=== PATIENT | male | born 1945 | race Caucasian/White ===

== ENCOUNTER 2022-12-19 09:32 | Outpatient (OUT) | payer MEDICARE, SELFPAY ==
--- NOTE | 2022-12-19 | XR_ITS ---
The [address] [address] Patient Name: ANNA DHILLON MRN: [id number] date: 1945 Sex: M Assigned Patient Location: [facility] Current Patient Location: [facility] Accession/Order Number: [id number] Exam Date: 12/19/2022 09:45 Report Date: 12/19/2022 10:24 At the request of: EVERTON FAN Procedure: XR foot CARISA min 3V EXAMINATION: XR foot CARISA min 3V HISTORY: BILATERAL FOOT PAIN COMPARISON: No relevant comparison available. FINDINGS: RIGHT FINDINGS: BONES: Loss of plantar arch, degenerative changes of the first tarsal metatarsal joint, and abnormal widening of the interspace between the base of the first and second metatarsals suggestive of Lisfranc injury. Prominent medial deviation/angulation of the second toe. SOFT TISSUES: No visible soft tissue swelling. OTHER: Negative. LEFT FINDINGS: BONES: Flexion and mild medial deviation of the second and third toes. SOFT TISSUES: No visible soft tissue swelling. OTHER: Negative. IMPRESSION: RIGHT CONCLUSION: Degenerative changes and Lisfranc injury. LEFT CONCLUSION: No acute abnormality or significant degenerative changes. Electronically authenticated by: HATTIE SCHAEFER Date: 12/19/2022 10:24
== END 2022-12-19 09:33 | disposition home or self-care (01) ==
LOC: RAD 09:32
PROVIDERS: Visit Provider Physician Assistant
DX: M79.672 Pain in left foot (principal); M79.671 Pain in right foot; M19.071 Primary osteoarthritis, right ankle and foot; S93.621A Sprain of tarsometatarsal ligament of right foot, initial encounter; X58.XXXA Exposure to other specified factors, initial encounter
CPT/HCPCS: 73630

== ENCOUNTER 2023-01-06 07:59 | Outpatient (OUT) | payer MEDICARE, SELFPAY ==
[2023-01-06 08:17] LABS: Basophils Percent Auto 0.4 % (0.2-2.0); Eosinophils Absolute Auto 0.2 10^3/uL (0.0-0.7); Eosinophils Percent Auto 4.4 % (0.9-7.0); Hematocrit 43.7 % (42.0-54.0); Immature Granulocytes Abs Auto 0.02 10^3/uL (0.00-0.03); Immature Granulocytes Pct Auto 0.4 % (0.0-0.5); Lymphocytes Absolute Auto 2.1 10^3/uL (1.2-3.8); Lymphocytes Percent Auto 38.9 % (20.5-60.0); Mean Corpuscular HGB Conc 34.3 g/dL (29.9-35.2); Mean Corpuscular Hemoglobin 32.4 pg (25.9-34.0); Mean Corpuscular Volume 94.4 fL (80.0-94.0); Monocytes Absolute Auto 0.5 10^3/uL (0.3-0.8); Monocytes Percent Auto 9.4 % (1.7-12.0); Neutrophils Absolute Auto 2.5 10^3/uL (1.4-6.5); Neutrophils Percent Auto 46.5 % (43.0-75.0); Platelet Count 137 10^3/uL (150-450); Red Blood Count 4.63 10^6/uL (4.70-6.10); Red Cell Distribution Width 12.5 % (11.0-15.0); White Blood Count 5.5 10^3/uL (4.0-11.0)
[2023-01-06 08:30] LABS: Microalbumin Urine Random <1.3 mg/dL (<=30.0)
[2023-01-06 09:34] LABS: BUN Creatinine Ratio 11.8; Calcium 9.1 mg/dL (8.5-10.1); Carbon Dioxide 25.8 mmol/L (21.0-32.0); Chloride 103 mmol/L (98-107); Estimated GFR (African America >60 (>=60); Estimated GFR (Non-African Ame >60 (>=60); Glucose 99 mg/dL (74-106); Potassium 3.8 mmol/L (3.5-5.1); Sodium 139 mmol/L (136-145)
== END 2023-01-06 08:00 | disposition home or self-care (01) ==
LOC: LAB 08:01
PROVIDERS: PCP Family Medicine; Visit Provider Family Medicine
DX: I10 Essential (primary) hypertension (principal)
CPT/HCPCS: 36415; 80048; 82043; 85025

== ENCOUNTER 2023-12-29 08:10 | Outpatient (OUT) | payer MEDICARE, SELFPAY ==
--- NOTE | 2023-12-29 | XR_ITS ---
The [address] [address] Patient Name: ANNA DHILLON MRN: [id number] date: 1945 Sex: M Assigned Patient Location: Current Patient Location: Accession/Order Number: [id number] Exam Date: 12/29/2023 08:45 Report Date: 01/02/2024 04:57 At the request of: HATTIE OBREGON Procedure: XR knee RT 4V PROCEDURE: XR knee RT 4V HISTORY: RIGHT KNEE PAIN COMPARISON: None. FINDINGS: BONES:Moderate-marked narrowing of the lateral joint space. Periarticular osteophytes along lateral and anterior compartments. SOFT TISSUES:Degenerative enthesophytes within quadriceps tendon insertion into the patella. EFFUSION:Small joint effusion suspected. OTHER: Negative. XR/XR knee RT 4V IMPRESSION: 1. Moderate-marked degenerative joint disease and small joint effusion. 2. No appreciable acute bone abnormality. Electronically authenticated by: HATTIE SCHAEFER Date: 01/02/2024 04:57
== END 2023-12-29 08:11 | disposition home or self-care (01) ==
LOC: EC 08:10
PROVIDERS: PCP Family Medicine; Visit Provider Orthopaedic Surgery
DX: M25.561 Pain in right knee (principal); M25.461 Effusion, right knee; M17.11 Unilateral primary osteoarthritis, right knee
CPT/HCPCS: 73564

== ENCOUNTER 2024-01-13 07:39 | Outpatient (OUT) | payer MEDICARE, SELFPAY ==
--- OUTSIDE RECORDS SUMMARY | 2024-01-13 07:44 | XMS_ITS | CCD ---
Author Organization [facility] Care Team Providers Care Tax Examiner Name Role Phone DR BEE CUTLER Primary Care Unavailable PHILLY, DR BEE Zuniga Consulting Unavailable CUTLER, DR BEE Zuniga Attending Unavailable CUTLER, DR BEE Zuniga Admitting Unavailable CLARISSA NOVAK Consulting Unavailable PHILLY, DR BEE Zuniga Admitting Unavailable CUTLER, DR BEE Zuniga Primary Care Unavailable CUTLER, DR BEE Zuniga Consulting Unavailable PHILLY, DR BEE Zuniga Attending Unavailable CUTLER, DR BEE Zuniga Primary Care Unavailable TATO RUSHING Attending Unavailable TATO RUSHING Admitting Unavailable BARKHAMSTED, DR CLARISSA Andrade Consulting Unavailable TATO RUSHING Consulting Unavailable PHILLY, DR BEE Zuniga Primary Care Unavailable PHILLY, DR BEE Zuniga Attending Unavailable CUTLER, DR BEE Zuniga Admitting Unavailable Bee Cutler Unavailable Medications Current Medications Medication Drug Class(es) Dates Sig (Normalized) Sig (Original) azithromycin 250 mg oral tablet (1 source) Macrolide Antimicrobial Start: 07-03-2022 Azithromycin 250 MG as directed Orally 2 tabs po today, then 1 tab daily x 4 more days for 5 Jun, Active fluticasone (5 sources) Corticosteroid Start: 01-08-2024 take 2 puff(s) by inhalation twice daily Fluticasone Propionate Active 2 PUFF INHALATION Twice daily January 08, 2024 12:00am [employer] puffs Inhalation Twice a day; Note: Source Status: Refill; Provider: Philly Zuniga take 2 puff(s) by inhalation twi ce daily Flovent HFA 110 MCG/ACT 2 puffs Inhalation Twice a day Active methylPREDNISolone 4 mg oral tablet (1 source) Corticosteroid Start: 07-03-2022 methylPREDNISolone 4 MG as directed Orally for 6 days Jun, Active metoprolol tartrate 50 mg oral tablet (7 sources) beta-Adrenergic Ana Start: 09-11-2023 End: 09-11-2023 take 50 mg by mouth twice daily Metoprolol Tartrate Active 50 MG PO Twice daily 180 September 11, 2023 1:10pm Start: 09-19-2022 take 1 tablet by herber every twelve hours Metoprolol Tartrate 50 MG 1 tablet with food Orally Twice a day for 90 days Sep, Active take 1 capsule by mo uth once daily Metoprolol Succinate 50 MG 1 capsule Orally Once a day Active naproxen sodium 220 mg oral capsule (5 sources) Nonsteroidal Anti-inflammatory Drug Start: 01-08-2024 take 1 capsule by mouth every twelve hours at mealtime as needed Naproxen Sodium (Aleve) 220 mg capsule Active 220 MG PO Every 12 hours January 08, 2024 12:00am [employer] capsule with food or milk as needed Orally every 12 hrs as needed; Note: Source Status: Taking; Provider: Philly Gamboa ( ) take 1 capsule by mo ut every twelve hours at mealtime as needed Aleve 220 MG 1 capsule with food or milk as needed Orally every 12 hrs as needed Active Completed/Discontinued Medications Medication Drug Class(es) Dates Sig (Normalized) Sig (Original) Multivitamins (1 source) Multivitamins Not-Taking Suprep Bowel Prep Kit 17.5-3.13-1.6 GM/180ML (1 source) Start: 07-20-2018 take 177 mL by mouth twice daily Suprep Bowel Prep Kit 17.5-3.13-1.6 GM/180ML 177ml bottle at 4pm and 11pm Orally Twice a day for 1 day(s) If this prescription is not covered by this patients insurance, he has been given an alternate prep to buy OTC Jul, Not-Taking Problems Active Problems Problem Classification Problem Date Documented Da te Episodic/Chronic Acquired foot deformities (4 sources) Hammer toe; Translations: [Other hammer toe(s) (acquired), right foot] Chronic Chronic obstructive pulmonary disease and bronchiectasis (5 sources) Acute exacerbation of chronic obstructive airways disease; Translations: [Chronic obstructive pulmonary disease with (acute) exacerbation] Chronic Essential hypertension (17 sources) Essential (primary) hypertension; Translations: [Essential hypertension] Onset: 06-21-2021 Chronic Other connective tissue disease (1 source) Plantar fascial fibromatosis Episodic Other connective tissue disease (1 source) Pain in left foot Episodic Other gastrointestinal disorders (4 sources) Hemorrhagic diarrhea ; Translations: [Diarrhea, unspecified] Episodic Other lower respiratory disease (10 sources) Chronic cough; Translations: [Chronic cough] Onset: 01-04-2022 Episodic Other nutritional; endocrine; and metabolic disorders (4 sources) Abnormal weight loss; Translations: [Abnormal weight loss] Episodic Past or Other Problems Problem Classification Problem Date Documented Da te Episodic/Chronic Other connective tissue disease (4 sources) Pain in right foot; Translations: [PAIN IN RIGHT FOOT] Onset: 05-24-2021 Episodic Other screening for suspected conditions (not mental disorders or infectious disease) (1 source) Encounter for screening for malignant neoplasm of prostate; Translations: [ENC SCREEN MALIG NEOPLASM PROSTATE] Onset: 06-28-2021 Episodic Results Test Name Value Interpretation Reference Range Facil ity XR CHEST 2 Von 01-04-2022 XR CHEST 2 V EXAM: XR CHEST 2 V HISTORY: . Chronic cough . COMPARISON: 03/15/2020 TECHNIQUE: Frontal and lateral chest FINDINGS: Heart is normal in size. There is hyperexpansion of lungs and flattening in hemidiaphragms indicating COPD. Lungs are free of focal infiltrates. There is a small calcified granuloma in the right midlung field. Atherosclerotic changes of the thoracic aorta are noted. No acute bony abnormality is appreciated. IMPRESSION: 1. Changes consistent with COPD. 2. No acute heart or lung disease identified. Electronically authenticated by: CLARISSA NOVAK Date: 2022-01-04 08:32 Normal [facility] Coding Summary.on 08-02-2021 Coding Summary. [id number] G h0bWw+PGhlYWQ+SN5STAP zY62ieKLhyE9LS6yYZB6R STXSGDCLVW0IEN8foXE3X JtmA9YdsaQu MxtyqPAqBW97FTm0HXE9p EziPNyydM3fpGGkO1t4Fc GyZA38fL11ZKktRKLcOpJ 3LjZpbjsgbWFy Y6xfUjFyvBUgQzn+PHRhY mxlIHdpZHRoPScxMDAlJy WlcSucLY3dAl0lZZQqTFU vbGxhcHNlOiBj n9mrUZQlEZetCX1ezKwxY 9TbcAL0BNCzc6h2Eo93oA I+FNBzGXE0rGbnAYkbi84 7EaGiu3qzUVQ3 gNFcKKyqGIW1U97bl5M5B GJyIMCcVPZ5oQJ8bV7ztS beiqnwG7XcnQWoMjH8TEK 8fQAhnE7shOch ysdteR6vEfj+M49MHK8EV DMKBI4LJyl4E2HzFgnyoW I+PX26ICZyDZ20qQAhpRF dv4zrwNf1YkRf IKBtXUO6zNwlKRnnu7PdE ZZcC79pwJXum7Y1LMIblA ltiRTkPdIzeLK6nS0gTNw xjsatj5yeoeir Tkbsy2mrdu76zS30B23uR YaoKZQjHWZ9BZLkHBBeyW ijdh0vaZ4eRi2+RMsja8x oj3xzjZr5UcNb MSAtiqNhoKsgIHQ9v2VbY e83U3QsjYqdk6CeAej4nl 13bJWjm4D9eJE8CShaVRZ xjC1vWLueQyW2 QPZpZsPmwG31gSGlGHyqL x5plXtbcIedFY2pGGIimb stVGWnfF4lAJWqsWWozGa wQH1bVWMauwdp q215ZlGpLFM8VGPmrSOrJ 9VzyS7kGzTkWEQlIKDdN6 DqcFZjEJroL766MYgvYpX 7CSEjzdWdK8Uc PYRlmOolSaH2g3W4Uw3Rg 8XlphdmUCV1ALsaAQHhAd Z1XoLqWjM4V5QrUfz7SRJ rnPprXZ8oD9Xs TKYgqztbmxxnlXG5ZUMoI AUxgO33tOYkVWvjIs0vz1 A3y125ODKjFBFogE12Fn5 udDogMTBwdCBU oH2psezpg7jhydwwKpEjQ IQnNVe5AKu6LTJwtKuhUl ExCQZ9JgQ8OHW7lYUprP5 kdTvxbrvbqF3n Oyc+W17rkR8yRHC8TBN8l dbfVVJzwwRnYA63QG77Q8 RyPjwvdGFibGU+PGRpdiB aePzgFU5fPzHy l3zfq0ZpNNjcC1DhORCuG SchSbe5LAPaZCU7tUP7jB 8wFEAfYSgcq8M0zXF9P8W hxdUkys7vq6mx TPIhVHljK82thODyq8C1Z IYlsAL0UIJoeNosPzPsrW 93Oyc+RTSxeArwn3IsQhw tc0vma8wznTn9 SoKzKYZzgvTkmSukEGN9j 0WqQj69P10bQJpsTAFeUF HsACNnNERjrWlfwq2drP6 wIi8+PGNvbCB3 vER0qB5kYMSqAlT9WRksW 225AlYfsZQuLdlxj2ude5 avzVk8PjVhQNUmvnSmgQe wQPX5z5CfWy82 Y09mXCaiTEMsOJCaTVJjK XYbwZpuep2meL7zWw9+PC 0cj1hkrq39lM97mJH+PHR hAWA5nSdrGDxb UUObyE6yEMuxXtK2PLFcQ eZpwN00cDUuCGrwHs4tbI kbqSjnKI7vRLArzjpcn21 7OaHoy3raOQOw nQCcELibRTK4Q47ae6M8G LPqPYQoDJI4zCF6sW1dxG lnbjogbGVmdDsgdmVydGl wKLrbRCueK109 IHRvcDsnPlBhdGllbnQgT gDmBWx8R5SmLnn7OPGkwP luTT0olUFvDPgiPa6jxIw mnIlhCS6iXXLr rptpb430IqIkn4lbWLUdw NGxGKcvJHE2P92ik5H6AE CxGRJxUOZ5rRE8fE4nuHy nbjogbGVmdDsg naAnoYiiKCscMDdwB032U HRvcDsnPkJpcnRoIERhdG T9SH34EW43eBUcm9G9uFD 5V4WkEXAvqpxr jlfngXM9QYYnPXTloZ79N t9qnLvdSj9ePYGgSXY9RH NtiSJmD9CkmH7hTzTjTKL iKSNqU6BudLHu RQwvQ023TZmtYtZ8FSLiq fYeW7TbPJAnuDeeInY2m0 S2Da0EE9F5YQ97HZ60oWO rk5F8kJI5U5Ex LEWebreromrxbMG9BDAjT TUasS22Se5gbEdlZm0nSU CdDKM3LCKsePNjE9EtqJ2 yOiAjMDAwMDAw R7PuzLLwVKvwY701CBgaF oH2TULyktEbK5WiQBMwiO dfScU4a9G2Nm2MUNk3QA0 3HF58iLTxi0E6 nDN8B4XkXOPjgcceyymrh DA8WQQiVNIvsA54Bi0vwP gyIj3fRACjGKL0EKCtoLI uU0YwqS5uZgRi PEGsELNwI1FhsRJkGMnyB 870IWlpXdE0BANkjmSuB6 PkDPGbfOgwJwY9o2S7Uk4 GGLUiSH62KOZ2 oMB3AF26OT77V2MbYomfb GFibGU+PHRhYmxlIHdpZH RoPScxMDAlJyBzdHlsZT0 cIa6nYRQzBEGu vOhtaGIcMeEwz5wmUICbE FvbUC5sbGhyX0LrpAS8DJ Wfz1n9Ju38K37zA9BevGP +XYAgnLA1wLJ1 fN0wTgChAgJ7CSehB143C dYpkTSdDqxmj4scw7lpnP p8UbT3YBTootRqvPvjYQA 2i4AoJm39P12t IHdpZHRoPSIxNSUiIHZhb Qvflb5ovN2bDa5+PGNvbC X0wEC2wM3hLjKaIgV8YCh yZ756FaAezKHx Jjcsg6ljy7iwzTp3WcOtR FCfanDgcFueMCV9r7CwUm 66Y8CnoGzdq9VzIpg0ag3 2qGPvf7M6qQW3 U2SoCVQdotgtiPPdfBluM G7cNRTyokllKPSzjA2zZZ GoE7u5AsMdCgN4DSttL2S yopX5QHHmvWIa DYagPKY2M16sc4H2OIKoQ KNxWJG8pHU2fJ8bwFeqod ogbGVmdDsgdmVydGljYWw cCAmhU273XGEc hMsxTZWcaJ6fNQVkzWQdm IjcBN2cALWnnkykMcHJJF gYEHxsXZbQA7PZGXEVVH8 1XO53wUKxh2A1 pKW2V1XnCDBpxqomxyvdp LU2FPCqKJMncG97gOSiAH cyQp2fj5F4n246LIQqTQZ thK09Ur2qaJcn STEpkOVRmF8jyrkbr0ixn legBkQuNAUnZRm8AKj2SH JgoIbtKkUxDFG8YnF1YHW 8pEQfrG6dqDuj crcjxI9yYwf+MTIvMjYvM Sf3IBcjcWA+HGJpZQI9iF pkPKylXZUstZ4rCKObY2b 4UgJiGcY8PSkl D2OjPUYtcxkwLd62wS7rI sVoUaY3QHydC8YbttW0XL LgiNCiRDewOXA0T80np6I 0NJXqTXFoCZN9 vKL8tT5jlFyiizyueHOfi DsgdmVydGljYWwtYWxpZ2 75YMMcrPoyUwm0SEipICB tAA86OV69uOEa s8F2jFP2H7MgOAFjiqcic budyBD6HFXsIRMdiH91cM TaFInrXg1mj4Z2h829ZTT fVMKsdQ60Pi6j rWbfNHHwfMGOmV2iunkpa 3ysbaccLtGnAZLgWGt6BF b6GXSppGfgHjQfWNZ3RzZ 6IWM5kYFgeR7y uFabelyvqZ5aJyx+TWFsZ TwvdGQ+WMAoASQ2lDnjMW qjABSemT2lFTYtQ1y0VfS vIzI3DXxcA8Cw THSywylyZw55gP8fTfMrW tZ1VNmzE4JpezT6RCPpdN HsZRwnXCX9N04gj8U6UDL aLLSgRVW8xNE8 fE5mkWnqxrulyLEveAeqk sRtoDqqSAqzRZfcJ300GW QxuVxwXwytZtUJmo5wMR9 mZjwvdGQ+PC90 nd58K7FsTkngRxk1DWYaV IV8wFD5iA7uLESqHLbju0 T5cPH6U3JghpQtdx6ce6h hYDVxRMyeX33v cEDgi0P4QKSxuWV3NVXaj TnyJpXseS73Hwe+PGNvbG huh4YjLmrzk3fcc2uktAz 9IjMwJSIgdmFs hCptMEW7q4QzYj75L29gY HdpZHRoPSIzMCUiIHZhbG ndil5vcX2vGv2+PGNvbCB 0dFX0hT4hTwLm IdI6YQtfB617KeVncTEcL izxu0zyw4tczQu1QyTgKY WapbHwfFupDNA8q3OpXl2 0E9JkxPeru6Fw Nsq7qt69jQDie0F3uOR6K 3BhZGRpbmctbGVmdDogMC 1sNQFwvwllWVIfdX5aRHJ xL5k0ItJmHzW6 RMvsN0HddgD1NAVdkZWaA VNmqYSQvO4gxgwnm9gwjq sjBjTdFYAsQEa3FCt2YRR saWduOiBsZWZ0 DaV4SUU4tXCmvL3rkZdqz dlloB4fWga+EEk9e2oxdF XrGN6rhNV1QB08KX37gYO yo6I4pBG3N2Ai EEEmoonmtgrjoDI4UCChE AObzH44Oy6pxFoiHo9xLL WlTJH7FYZmaIFuL2AjhP0 yOiAjMDAwMDAw L2EsbHApWJtzM722MCkyO cA0EKOoayWcR3SdLJAxdH tyFkQ9p5O5Gx6UPQ89SK3 1ZK41uDDho9B5 wAC7K7UeHUPqtkhgokiog TK8LBMxOXAlnF45Zx8gnY soAh7mDOCgXUH5CNNwyIJ cW7SzfE8bTkWe IUVmDGVlP5OjpJYkHXcuH 172CWqeNjS2KKHedeAjD8 VdCFJdiNmvHmZ7k1S5Tm5 RRy98OW10LJ13 kEQah8N8zFL5P7FjDTOfp wtioteqbVV4UDHrAMKywD 05Hb4ciAvpIk7nVJAiVRL 6MJJdhYLoA8Md sR9yUiJgGRJpRHVqY4Jqa JFhOQgwQ297SDidOmB9EK YlnqJtX1BoSFImrDlyBxG 4w5A7Ia0AZHjd zeu1S5ToSmxyiKY+PC90Y IWkHQ41wCBhvCBjc3shzX k4AlQbLETbYKW7fHcfPZr fm5WqNTTjK22b bGFw (more content not included)... Normal [facility] Physician Orderon 07-27-2021 Physician Order [id number] Normal [facility] PSA SCREENING [facility]on Prostate specific Ag [Mass/Vol] 2.4 ng/mL Normal 0.0-4.0 [facility] Comment on above: Result Comment: Sana NUÑEZ methodology. . According to the [employer], Serum PSA should decrease and remain at undetectable levels after radical prostatectomy. The AUA defines biochemical recurrence as an initial PSA value 0.2 ng/mL or greater followed by a subsequent confirmatory PSA value 0.2 ng/mL or greater. Values obtained with different assay methods or kits cannot be used interchangeably. Results cannot be interpreted as absolute evidence of the presence or absence of malignant disease. Performed By: #### P SASCLC #### [facility] [address] [place] [address] Dr. Jose Alves CBC AUTO DIFFon 06-21-2021 BASO # 0.0 103/ul Normal 0.0-0.1 [facility] Comment on above: Performed By: #### C BC #### [facility] [address] [place] [address] Dr. Jose Alves Basophils/100 WBC (Bld) 0.4 % Normal 0.2-2.0 [facility] Comment on above: Performed By: #### C BC #### [facility] [address] [place] [address] Dr. Jose Alves EO # 0.1 103/ul Normal 0.0-0.7 [facility] Comment on above: Performed By: #### C BC #### [facility] [address] [address] [address] Jose Alves Eosinophils/100 WBC (Bld) 2.6 % Normal 0.9-7.0 [facility] Comment on above: Performed By: #### C BC #### [facility] [address] [place] [address] Dr. Jose Alves Erythrocyte distribution width (RBC) [Ratio] 12.6 % Normal 11.0-15.0 [facility] Comment on above: Performed By: #### C BC #### [facility] [address] [place] [address] Dr. Jose Alves Hematocrit (Bld) [Volume fraction] 44.2 % Normal 42.0-54.0 [facility] Comment on above: Performed By: #### C BC #### [facility] [address] [place] [address] Dr. Jose Alves Hemoglobin (Bld) [Mass/Vol] 15.1 g/dL Normal 14.0-18.[address] [facility] Comment on above: Performed By: #### C BC #### [facility] [address] [place] [address] Dr. Jose Alves IG # 0.01 10e3/ul Normal 0.00-0.[address] [facility] Comment on above: Performed By: #### C BC #### [facility] [address] [place] [address] Dr. Jose Alves IG % 0.2 % Normal 0.0-0.[address] [facility] Comment on above: Performed By: #### C BC #### [facility] [address] [place] [address] Dr. Jose Alves LYMPH # 2.2 103/ul Normal 1.2-3.8 [facility] Comment on above: Performed By: #### C BC #### [facility] [address] [place] [address] Dr. Jose Alves Lymphocytes/100 WBC (Bld) 40.2 % Normal 20.5-60.[address] [facility] Comment on above: Performed By: #### C BC #### [facility] [address] [place] [address] Dr. Jose Alves MANUAL DIFF REQ NO Normal [facility] Comment on above: Performed By: #### C BC #### [facility] [address] [place] [address] Dr. Jose Alves MCH (RBC) [Entitic mass] 33.5 pg Normal 25.9-34.0 [facility] Comment on above: Performed By: #### C BC #### [facility] [address] [place] [address] Dr. Jose Alves MCHC (RBC) [Mass/Vol] 34.2 g/dL Normal 29.9-35.2 [facility] Comment on above: Performed By: #### C BC #### [facility] [address] [place] [address] Dr. Jose Alves MCV (RBC) [Entitic vol] 98.0 fL Critically high 80.0-94.[address] [facility] Comment on above: Performed By: #### C BC #### [facility] [address] [place] [address] Dr. Jose Alves MONO # 0.5 103/ul Normal 0.3-0.[address] [facility] Comment on above: Performed By: #### C BC #### [facility] [address] [place] [address] Dr. Jose Alves Monocytes/100 WBC (Bld) 8.9 % Normal 1.7-12.[address] [facility] Comment on above: Performed By: #### C BC #### [facility] [address] [place] [address] Dr. Jose Alves NEUT # 2.6 103/ul Normal 1.4-6.[address] [facility] Comment on above: Performed By: #### C BC #### [facility] [address] [place] [address] Dr. Jose Alves Neutrophils/100 WBC (Bld) 47.7 % Normal 43.0-75.[address] [facility] Comment on above: Performed By: #### C BC #### [facility] [address] [place] [address] Dr. Jose Alves Platelet mean volume (Bld) [Entitic vol] 9.9 fL Normal 9.5-13.5 [facility] Comment on above: Performed By: #### C BC #### [facility] [address] [place] [address] Dr. Jose Alves PLT 201 103/ul Normal 150-450 [facility] Comment on above: Performed By: #### C BC #### [facility] [address] [place] [address] Dr. Jose Alves RBC 4.51 106/ul Critically low 4.70-6.10 [facility] Comment on above: Performed By: #### C BC #### [facility] [address] [place] [address] Dr. Jose Alves WBC 5.4 103/ul Normal 4.0-11.[address] [facility] Comment on above: Performed By: #### C BC #### [facility] [address] [place] [address] Dr. Jose Alves MICROALBUMIN, RAND URon mALB 2.1 mg/L Normal <=30.[address] [facility] Comment on above: Performed By: #### M ALBR #### [facility] [address] [place] [address] Dr. Jose Alves PROF CHEM 8 (BAS METB)on Anion gap [Moles/Vol] 12.5 mmol/L Normal [facility] Comment on above: Performed By: #### B MP #### [facility] [address] [place] [address] Dr. Jose Alves Calcium [Mass/Vol] 8.9 mg/dL Normal 8.4-10.2 [facility] Comment on above: Performed By: #### B MP #### [facility] [address] [place] [address] Dr. Jose Alves Chloride [Moles/Vol] 105 mmol/L Normal 98-107 [facility] Comment on above: Performed By: #### B MP #### [facility] [address] [place] [address] Dr. Jose Alves CO2 [Moles/Vol] 29.1 mmol/L Normal 22.0-30.0 [facility] Comment on above: Performed By: #### B MP #### [facility] [address] [place] [address] Dr. Jose Alves Creatinine [Mass/Vol] 1.13 mg/dL Normal 0.66-1.25 [facility] Comment on above: Performed By: #### B MP #### [facility] [address] [place] [address] Dr. Jose Alevs EGFR-AF [place]IZ[place] >60 Normal >=60 [facility] Comment on above: Performed By: #### B MP #### [facility] [address] [place] [address] Dr. Jose Alves EGFR-NON AF [place]IZ[place] >60 Normal >=[address] [facility] Comment on above: Performed By: #### B MP #### [facility] [address] [address] [address] Jose Alves Glucose [Mass/Vol] 100 mg/dL Normal 74-106 [facility] Comment on above: Performed By: #### B MP #### [facility] [address] [address] [address] Jose Alves Potassium [Moles/Vol] 4.6 mmol/L Normal 3.4-5.[address] [facility] Comment on above: Performed By: #### B MP #### [facility] [address] [address] [address] Jose Alves Sodium [Moles/Vol] 142 mmol/L Normal 137-145 [facility] Comment on above: Performed By: #### B MP #### [facility] [address] [address] [address] Jose Alves Urea nitrogen [Mass/Vol] 22.0 mg/dL Critically high 9.0-20.[address] [facility] Comment on above: Performed By: #### B MP #### [facility] [address] [address] [address] Jose Alves Urea nitrogen/Creatinine [Mass ratio] 19.5 mg/mg Normal [facility] Comment on above: Performed By: #### B MP #### [facility] [address] [address] [address] Jose Alves Vital Signs Date Time Vital Sign Value Performing Clinician Facility 01-12-2024 08: Body height 171.45 cm [facility] 01-12-2024 08: Body mass index (BMI) [Ratio] 23.7 kg/m2 [facility] 01-12-2024 08: Body weight 69.85 kg [facility] 01-12-2024 08: Diastolic blood pressure 76 mm[Hg] [facility] 01-12-2024 08: Heart rate 55 /min [facility] 01-12-2024 08:27-0400 Systolic blood pressure 179 mm[Hg] [facility] 07-07-2023 08:30-0500 Body height 171.45 cm Bee Cutler Other [employer] Other 07-07-2023 08:30-0500 Body mass index (BMI) [Ratio] 24.84 kg/m2 Bee Cutler Other [employer] Other 07-07-2023 08:30-0500 Body weight 73.03 kg Bee Cutler Other [employer] Other 07-07-2023 08:30-0500 Diastolic blood pressure 80 mm[Hg] Bee Cutler Other [employer] Other 07-07-2023 08:30-0500 Systolic blood pressure 160 mm[Hg] Bee Cutler Other [employer] Other 01-02-2023 08:30-0400 Body height 171.45 cm Bee Cutler Other [employer] Other 01-02-2023 08:30-0400 Body mass index (BMI) [Ratio] 24.38 kg/m2 Bee Cutler Other [employer] Other 01-02-2023 08:30-0400 Body weight 71.67 kg Bee Cutler Other [employer] Other 01-02-2023 08:30-0400 Diastolic blood pressure 74 mm[Hg] Bee Cutler Other [employer] Other 01-02-2023 08:30-0400 Systolic blood pressure 142 mm[Hg] Bee Cutler Other [employer] Other 12-05-2022 09:15-0400 Body height 171.45 cm Bee Cutler Other [employer] Other 12-05-2022 09:15-0400 Body mass index (BMI) [Ratio] 24.07 kg/m2 Bee Cutler Other [employer] Other 12-05-2022 09:15-0400 Body weight 70.76 kg Bee Cutler Other [employer] Other 12-05-2022 09:15-0400 Diastolic blood pressure 78 mm[Hg] Bee Cutler Other [employer] Other 12-05-2022 09:15-0400 Systolic blood pressure 159 mm[Hg] Bee Cutler Other [employer] Other Encounters Encounter Date Encounter Type Care Provider Facility Start: 01-12-2024 End: 01-12-2024 ambulatory [facility] Work Phone: Start: 01-12-2024 End: 01-12-2024 Patient encounter procedure [facility]ly [facility] Work Phone: Start: 07-07-2023 End: 07-07-2023 ambulatory Bee Cutler Other [employer] Other Start: 07-07-2023 Office outpatient vi sit 15 minutes Bee Cutler [facility] Start: 01-02-2023 End: 01-02-2023 ambulatory Bee Cutler Other [employer] Other Start: 01-02-2023 Office outpatient vi sit 15 minutes Bee Cutler [facility] Start: 12-05-2022 End: 12-05-2022 ambulatory Bee Cutler Other [employer] Other Start: 12-05-2022 Office outpatient vi sit 15 minutes Bee Cutler [facility] Start: 09-19-2022 End: 09-19-2022 ambulatory Bee Cutler Other [facility] Other Start: 09-19-2022 Telephone encounter Bee Cutler [facility] Start: 01-19-[address] BEE CUTLER Facil ity:H1 Start: 01-04-2022 End: 01-05-[address] BEE CUTLER Facility:[facility] Start: 06-21-2021 End: 06-22-[address] BEE CUTLER Facility:[facility] Start: 05-24-2021 End: 05-25-[address] BEE CUTLER Facility:[facility]1 Plan of Treatment Date Care Activity Detail Author Comprehensive metabo lic 1999 panel - Serum or Plasma [facility] enter XR Chest 2 Views [facility] Immunizations Immunization Date Immunization Notes Care Provider Fa cility 03-23-2021 influenza virus vaccine, split virus (incl. purified surface antigen) Bee Cutler Other [employer] [facility] Other 03-23-2021 influenza virus vaccine, unspecified formulation [facility] 03-24-2020 influenza virus vaccine, split virus (incl. purified surface antigen) Bee Cutler Other [facility] Other 03-24-2020 influenza virus vaccine, unspecified formulation [facility] Payers Date Payer Category Payer Self-pay 1960 Unknown [id number] 1945 Unknown [id number] 1945 Unknown [id number] [id number] [id number] 1945 Unknown [id number] [id number] [id number] 1945 Unknown [id number] [id number] [id number] Medicare [id number] 2.1 [id number] Social History Date Type Detail Facility Sex Assigned At [employer] Other Start: 09-11-2023 Tobacco smoking stat us NHIS Ex-smoker (finding) [facility] Start: 1945 Sex Assigned At Male F [facility] Evaluation note 07-07-2023 Note Date & Type Note Facility 07-07-2023 Evaluation note Encounter Date Diagnosis Assessment Notes Jun, Essential (primary) hypertension (ICD-10 - I10) Blood pressure remains well controlled at this time. Denies cardiac symptoms. Shows no signs or symptoms or poor control. Patient to continue with above medication and we will continue to monitor. Advised to pay attention to body and symptoms. Any developing patterns. Stay well hydrated. Check labs this summer. Jun, Chronic obstructive pulmonary disease with acute exacerbation (ICD-10 - J44.1) Take medications as directed. Use nebulizer or inhaler as directed. Take medication with food to prevent stomach upset. [employer] [facility] Other Evaluation note 01-02-2023 Note Date & Type Note Facility 01-02-2023 Evaluation note Encounter Date Diagnosis Assessment Notes Dec, Essential (primary) hypertension (ICD-10 - I10) Takes bps at home. Reports they are 143/70 consistently . Denies cardiac symptoms. Continue present med, recheck labs. Followup in 6 months. Dec, Left foot pain (ICD-10 - M79.672) Reviewed podiatry note, discussed next plan for treatment and followup at their office in January. [employer] Other Evaluation note 12-05-2022 Note Date & Type Note Facility 12-05-2022 Evaluation note Encounter Date Diagnosis Assessment Notes Nov, Plantar fasciitis, left (ICD-10 - M72.2) Pt already taking aleve. Agrees to referral to Podiatry, requests Dr. Rushing. [employer] Other Evaluation note 09-19-2022 Note Date & Type Note Facility 09-19-2022 Evaluation note Encounter Date Diagnosis Assessment Notes Sep, Essential (primary) hypertension (ICD-10 - I10) [employer] Other Clinical Note 05-25-2021 Note Date & Type Note Facility 05-25-2021 Note PROCEDURE: XR FOOT R T MIN 3 VIEWS COMPARISON: None. HISTORY: Pain in right foot FINDINGS: BONES:No acute fracture or dislocation. Deformity of the second toe with medial subluxation of the second proximal phalanx in relation to the metatarsal and flexion deformity. Moderate flattening of the plantar arch primarily in the midfoot. Degenerative changes with joint space narrowing marginal osteophyte formation most significant at the first metatarsal-phalangeal joint SOFT TISSUES:Negative. No visible soft tissue swelling. EFFUSION:None visible. OTHER: Negative. 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 Other Summary Purpose Family History Relationship Condition Age at Onset Recorded Date/T teodoro brother Unknown Malignant neoplasm Unknown father Unknown mother Unknown Advance Directives Advance Directive Response Recorded Date/ Time Advance Directives No July 07, 2023 11:06am Reason for Referral Reason *FU 12/13 L planta r fasciitis Diagnosis 1 Plantar fasciitis, l eft (M72.2) Referral Organization [facility] Nasreen berger Referring Provider First Name Bee Referring Provider Last Name Philly Referring Provider Specialty Family [facility] Referred Organization [facility] Referred Provider Tato Rushing Referred Address [address], [place],[address] Referred Provider Specialty Podiatry - S urgical Chiropody Referral Priority Routine General Notes Davida Valera 02:27:19 PM >received today, attachments made, notes locked, referral faxed Chief Complaint and Reason for Visit Chief Complaint Medicare Wellness Reason for Visit Chronic cough HTN (hypertension) Additional Source Comments (unrecognized sect ion and content) No Status Records FoundNo Status Records Found INFORMATION SOURCE (unrecogn ized section and content) DATE CREATED AUTHOR 08/03/2021 Marciano Stone [facility] DATE CREATED AUTHOR AUTHOR'S ORGANLENORA ATION 01/19/2022 [facility] REASON FOR VISIT (unrecogniz ed section and content) refillleft foot issues, swol jose painful6 month Follow up6 month Follow up Care Teams (unrecognized sec tion and content) Team Status: Active Member Role Status Dates Bee Cutler MD Primary Care Provider Active Team Status: Inactive Member Role Status Dates Bee Cutler MD Primary Care Provide r, Attending Provider Active Start: January 12, 2024 End: January 12, 2024 Goals (unrecognized section and content) Goals may be documented in a n alternate section FOR RECORDS PERTAINING TO PATIENTS WHO ARE OR HAVE BEEN ENROLLED IN A CHEMICAL DEPENDENCY/SUBSTANCEABUSE PROGRAM, SOME INFORMATION MAY BE OMITTED. This clinical summary was aggregated from multiple sources. Caution should be exercised in using it in the provision of clinical care. This summary normalizes information from multiple sources, and as a consequence, information in this document may materially change the coding, format and clinical context of patient data. In addition, data may be omitted in some cases. CLINICAL DECISIONS SHOULD BE BASED ON THE PRIMARY CLINICAL RECORDS. [facility]. provides no warranty or guarantee of the accuracy or completeness of information in this document.
--- NOTE | 2024-01-13 07:55 | XR_ITS ---
The [address] [address] Patient Name: ANNA DHILLON MRN: [id number] date: 1945 Sex: M Assigned Patient Location: LAB Current Patient Location: LAB Accession/Order Number: [id number] Exam Date: 01/13/2024 08:00 Report Date: 01/13/2024 15:32 At the request of: JOSE FRAGA Procedure: XR chest 2V EXAMINATION: XR chest 2V HISTORY: Chronic Cough, Hypertension COMPARISON: No relevant comparison available. TECHNIQUE: PA and lateral FINDINGS: LUNGS: No significant pulmonary parenchymal abnormalities. VASCULATURE: No increased pulmonary vasculature. PLEURA: No pneumothorax, effusion, or pleural thickening. CARDIAC: No cardiomegaly or cardiac silhouette abnormality. MEDIASTINUM: No visible mass or adenopathy. Aortic atherosclerosis BONES: No fracture or visible bone lesion. OTHER: Negative. XR/XR chest 2V IMPRESSION: No acute cardiopulmonary process Electronically authenticated by: CLARISSA WEEMS Date: 01/13/2024 15:32
[2024-01-13 08:09] LABS: Basophils Percent Auto 0.5 % (0.2-2.0); Eosinophils Absolute Auto 0.2 10^3/uL (0.0-0.7); Eosinophils Percent Auto 2.7 % (0.9-7.0); Hematocrit 41.4 % (42.0-54.0); Hemoglobin 14.4 g/dL (14.0-18.0); Immature Granulocytes Abs Auto 0.02 10^3/uL (0.00-0.03); Immature Granulocytes Pct Auto 0.4 % (0.0-0.5); Lymphocytes Absolute Auto 1.3 10^3/uL (1.2-3.8); Lymphocytes Percent Auto 23.8 % (20.5-60.0); Mean Corpuscular HGB Conc 34.8 g/dL (29.9-35.2); Mean Corpuscular Hemoglobin 34.4 pg (25.9-34.0); Mean Platelet Volume 10.3 fL (9.5-13.5); Monocytes Absolute Auto 0.6 10^3/uL (0.3-0.8); Monocytes Percent Auto 11.2 % (1.7-12.0); Neutrophils Absolute Auto 3.5 10^3/uL (1.4-6.5); Neutrophils Percent Auto 61.4 % (43.0-75.0); Platelet Count 124 10^3/uL (150-450); Red Blood Count 4.18 10^6/uL (4.70-6.10); Red Cell Distribution Width 12.4 % (11.0-15.0); White Blood Count 5.6 10^3/uL (4.0-11.0)
[2024-01-13 09:32] LABS: Alanine Aminotransferase 44 U/L (16-63); Albumin Globulin Ratio 1.1; Albumin Level 3.7 g/dL (3.4-5.0); Alkaline Phosphatase 90 U/L (46-116); Anion Gap 13.5; Aspartate Amino Transferase 62 U/L (15-37); BUN Creatinine Ratio 14.7; Bilirubin Total 1.1 mg/dL (0.2-1.0); Calcium 8.9 mg/dL (8.5-10.1); Carbon Dioxide 26.9 mmol/L (21.0-32.0); Chloride 99 mmol/L (98-107); Estimated GFR (African America >60 (>=60); Estimated GFR (Non-African Ame >60 (>=60); Globulin 3.5 g/dL; Glucose 131 mg/dL (74-106); Potassium 4.4 mmol/L (3.5-5.1); Sodium 135 mmol/L (136-145); Thyroid Stimulating Hormone 4.394 uIU/mL (0.358-3.740); Total Protein 7.2 g/dL (6.4-8.2)
== END 2024-01-13 07:40 | disposition home or self-care (01) ==
LOC: LAB 07:42
PROVIDERS: PCP Family Medicine; Visit Provider Family Medicine
DX: R05.3 Chronic cough (principal); I10 Essential (primary) hypertension
CPT/HCPCS: 36415; 71046; 80053; 84443; 85025

== ENCOUNTER 2024-02-24 11:21 | Outpatient (OUT) | payer MEDICARE, SELFPAY ==
--- NOTE | 2024-02-24 | XR_ITS ---
The [place] [id number] Patient Name: ANNA DHILLON MRN: [id number] date: 1945 Sex: M Assigned Patient Location: Current Patient Location: Accession/Order Number: [id number] Exam Date: 02/24/2024 11:22 Report Date: 02/25/2024 10:35 At the request of: TATO GARCIA Procedure: XR foot LT min 3V PROCEDURE: XR foot LT min 3V HISTORY: LEFT FOOT PAIN COMPARISON: XR foot bilateral 12/19/2022 FINDINGS: BONES:Persistent flexion of the second third metatarsophalangeal joints throughout the study; no appreciable dislocation. Mild degenerative changes of the first, second, third metatarsal phalangeal joints. Mild midfoot degenerative changes. Flattening of the plantar arch. Small calcaneal plantar spur. SOFT TISSUES:No visible soft tissue swelling. EFFUSION:None visible. OTHER: Negative. XR/XR foot LT min 3V IMPRESSION: 1. Persistent flexion of the second third toes; hammertoe? 2. Pes planus and multifocal mild degenerative joint disease. Electronically authenticated by: HATTIE SCHAEFER Date: 02/25/2024 10:35
--- OUTSIDE RECORDS SUMMARY | 2024-02-24 11:29 | XMS_ITS | CCD ---
Author Organization [facility] Care Team Providers Care Cat Scan Tech Name Role Phone DR BEE CUTLER Primary [...] RUSHING Attending Unavailable TATO RUSHING Admitting Unavailable ARDSLEY ON [place], DR CLARISSA [employer] Unavailable TATO RUSHING [...] Date: 2022-01-04 08:32 Normal [facility] Coding Summary.on 08-02-2021 Coding Summary. [id number] h0bWw+PGhlYWQ+QR7ZJYT rX68bvGCdmU9SC8uVEL0B AHVGPLOSGR5GCZ5hzBQ4S VmdY8QyvjMg GnuerOUoMJ99SYd7WGK7x VhqTDblkG2wtWOeC8u2Hl JxQN47bI99QXkeOAFpFnU 3LjZpbjsgbWFy E5kwHjXrhFLxPru+PHRhY mxlIHdpZHRoPScxMDAlJy NhqKyhWV5qOj4pYOIfSWA vbGxhcHNlOiBj x5yoDVFkGEfmHP9joGznW 4XefYS2AYLos8q8Ow88bF I+YFEcCOL3cMqtMGwca06 5XvEvv7phSMZ9 gQOyILmjEEH6A98ox0N4W ZNzANKkFCT9iEH5iU9pjM wcmieeW3LynYBcDuY3PLI 4kYAdyC4roRin zbvirT5zYqh+B31YCJ4NI CKGGW7PNbm0B2NiIcqooT I+QP76QHFwXX82aMRlaWT da6fieEu4JfWv IPTrZRT0aNbzWSmsb3AeK WKkP19qgROpt4U6JTLkiM gzyGOqTyQvtOT8uB7hKLy reesmg4nrihhr Lliog7izzk69xC23B31sM MgfYQMnHUD4ORUtPONutE jlcg1xcY5vTh8+RYjel1k eb4tntSk4IfBr KURvqnXndClfXJW5e2VcK f90R8RpvIgch2GhOeo6qh 36tCLte3Z4rEB0LPxjZTH rwA8kVKrwAjD5 JHSfCoAicY38wZAgTZtfQ r2mkZtfoBzvDB9vNTJbgb dvFHXftE6dJKVmwJKmzCx lMU7yESXefujx p904PeEnUUB1JQTkxLMoX 1OfjH9zNqSqRIPiWAFrH5 ZmpJZzEVwvW650TUklXpN 2WDDbkcAuF2Vc PJAoaLmeWvY3i7J8Ta7Fd 5BmfpjwGJN0YCliYLWnCq C2SeYeFyY0B6WuVud0IZW hxRahLI3zQ4Gl YRTqulyhetjfiPI7HLIsT EFynG72pMRfFGosMb9ux7 V5o864ZSQoKPBfoY75Bd6 udDogMTBwdCBU iO9ujasjh3hplhmhZgNeX UWnFKm9YWu1FDNshVpjFu ChMBW5BrP5QOF8fDHgiI1 qyVmcruuasT4r Oyc+E69xrW9rATJ0WOF3h vjyVCHxaeLnVR62VA30N7 RyPjwvdGFibGU+PGRpdiB faDldPC3pVbOe n1ftd3RiSNkrU9VeASHsG SbnJbu0RYXbTNX1jQX4lB 0uKMMdCLwqi5F6gFE4E5Y mvuSycv0nd4hi YVUeKNfkD73fzDLgt6N5X RSfdYA2CYJulSkaXmEqwE 93Oyc+CQYtjIfql4HxAoe zi8axz8iioQm4 GfLdXUQhkdRofPexLDW0k 0GpIs53J60tVMokQOCqKD RgYLTsPPDthQkrrh6nlG4 wIi8+PGNvbCB3 dKV3kT3oZFZbDvE9QCphY 882SlYkrVXqFqyxk4yhe6 vrjZk8FsVqCDQlisXgpHd kBEY7s9RsYi72 D58kMUwjMDPgDUZnFIBmU IJdnZbxae0wsC5eJk3+PC 9zc0kbws99oK55oKX+PHR oACJ0qYxjSDcs CMNbhT5kPRkkMdU9NSInU gTgeX12gHOmFPjdPq3lqP psiDttOZ3cXXMjqtzcl66 0IuHch3otTSYi kEXwVJlhADN8P17ek2D3Y DWbQUObFSZ7zSR5uL7zmU lnbjogbGVmdDsgdmVydGl eSZtcCNkzY933 IHRvcDsnPlBhdGllbnQgT uSkZPb3N3VuFov2BCSxkO fyWM8ssVSlLZagFg9dnLf fcQjoCI4yPIHd sqyoa767PlOvl6fdYBFhm PNhRYeySXC7F50ez9E6AJ QvYWMfPGE9xUF7uZ2jsDm nbjogbGVmdDsg xrRguGzdFWhmUJgrW096K HRvcDsnPkJpcnRoIERhdG J6TZ04SD73qANdj0J7bLJ 0A2EgWUVwyoft esytqWX7JBAbGSLhkJ16T y9diWmzOj9cCNCnCEV2RW DydTZoM1FsbY2vRkViKVX xOKTqR0OntBVo WZjmR715XDhhXiE0KRYmi jZzA3PlUWBpeIrxWvE3z3 N6Aj1YO5N1VF41IG31iZF an3V3sQN2W1Oh FQRpnrhoqpmdbQM3EALoA YTnpA84Ew9isKmlRq4rJX TgPOS9BEGigLEqB5DuxU0 yOiAjMDAwMDAw B2DgdYUbEGxpC217XBuhS dS6JKIzgbRnG9FvTLOsxG ksOcN3c9X2Yr5AVVw2AT8 4LU00kMNgq0T5 mJI7F8MmUUXdtbtzuqipt MQ2QKOtSGQviE29Vc6htT ftTg2gFCNqVKP7BPNzkDA oE3QthP9aFpWh TKIdGEIcX8CznNNzPUdsE 724BIgrHgI6YUCekpZiC7 EiHIOuaWmkInJ2i5K1Jn2 VXSHcGQ00WZP9 uNH7RL81WJ94N4PfBvdfg GFibGU+PHRhYmxlIHdpZH RoPScxMDAlJyBzdHlsZT0 dCk3oSYZnVOCb dReduYEpEaIlz2xpFCTvI WsgME8gnQpaJ5IqaBA5DL Cbg9q1Mf01T72gN6GvxGO +QILihGU5kEM3 aA5tPoQdRuR0IJdlH306Z oFhoDRpNomvd4qrw0dogE z9JoD5OWUpihKwuHhjTBB 1m1NzYw42B43j IHdpZHRoPSIxNSUiIHZhb Yjwfa8suY2jTs9+PGNvbC U3fZQ8cU8hQtXxZiG4EUs pE652IyZrsJEr Rnjra1unf8rtgXe7HuUqZ SXuxeMnrYdqTVR2y9VcBa 94K1YytJgwo8SmDxj1fl5 0mSUll5U5sYR2 H1CjFMKtvbftjCLuuXxaD U7lCGZguqesQYZyzL4wRQ MoX2v5TvYjKdK5ILgoO8N gqrF0MUKbaOCi RDcjNLL8C68fk0L2KWKfW BSrZWE4jTK9sY5pvNggdn ogbGVmdDsgdmVydGljYWw sMDnlS115UYVb cYjgAPIjoH4zBDNwyAXje UtaEX0sAWAqmqjvBxZXRR tWFGinGTeAU6ADAFRPDV0 3ND77iGLyg3O3 wFM2F6XrRMNffabztapjs ZZ8PIGnKUAobW86mBNxDD znKt8ub4T1h035HQKcWDG qrM70Wr3nySyl BFZduWVIvD1jhukuc5onr egtPsMqVJQtTLc2DZw1CE UyzChdNqZzIJU2AgS3OEM 2vMJoaT0orYhj rklfsH2gNpi+MTIvMjYvM Ml5EHjxoRG+XQBhOAA9kL epGAgkAUWfuI3yVBTlZ5c 4UzZtVzE6DBak R3VsHSLsresyRm32zF3uI sHnFpD5GRwfA7LovpD2MS OicQOdOJcyFTT1V90yy2B 5YXNdGAEpUML5 dUB5jF2hgIfmfluimUYpl DsgdmVydGljYWwtYWxpZ2 02QJBioXvcLou6HLrzBBF yAW49WJ08vMCg c1I6qSY4T9YpHFTjsrwgw hxyoFR9MTVaHUDywX84xK PdCAjkMe1jt0Y1c820VPU oVLCcwJ27Wq8t yNwnACGnaZGTzN1xjmjnk 0pvlihsMaLvABFoJHu7OK e7UVPduYzdQvPeSZK8FiH 4FIL1xATkeM2b cMxqxvqzaL2fVrs+TWFsZ TwvdGQ+TCVvKHF4jWycWJ ouQYPqzV0gVQNgI0e0PnJ fXyM1MVhvR8Kc GLWvmcgcZk65jI0aVrOfK tR5KRrkA9UaacC3QXGdrI DtMTykMMI5A41lb3U1HSJ eTVTsKTN8sFA1 uH3jzZliadoefPMlnFnhw dPwlPmcDPniDSmvT365XM WikYpqIwjaYyQMzy8nFA9 mZjwvdGQ+PC90 hy45W3MzMzclMps5OUZaX ML0hVE7dO1vWVBjYVfra9 J6pIL1N0NyjtAktr8eb2s sOBGjWWmvP65a cTUmk0I9CZJjnKK5EHSrg YzfWjPbvL20Mzs+PGNvbG mgd5CnRvlhg1dpy3utdDn 9IjMwJSIgdmFs hNroRKB7g9AaMc68A06xN HdpZHRoPSIzMCUiIHZhbG nkhc6faZ8wDb2+PGNvbCB 3kAT5nO2gIfYn PbY6JSinB626PoEtdSXsQ wxjx6yzc3kiyDy8PqEyCF WrwoTysJiuPDP0a0KdQv3 4X3ChaPwdq2Iq Bua8la13lLTkc0E9eGY5Z 3BhZGRpbmctbGVmdDogMC 8yOAZqgzwsKVEkhX9cLJE uP0g7LgCjTiB1 TZpqT4VadpQ8FCNzeAKiO JSasOAHkG2lkbetg1ffkl geOaJnWKItJYy5MLn5XXI saWduOiBsZWZ0 SmK7QCX8hUSluY5wkYwri neixM5pGip+QTk8q9fbcJ MiFH0xyGT7RX62XG04tVB nt9Y1xDM4U4Nh VVOfrsrmrpcopHF0SONrT WLkvH56Ye2eoTeyQg6xCY GzVJP6KDBbeRVvU1KoiN3 yOiAjMDAwMDAw R0QydARzBKrlE071ZZspD xJ9ESQbiaYpR7OaWYJfzD sfGpD5e7Y8Mk2TBX68BK1 4UN05mGMfy2Y3 jUD5R4IzAIWvccrtgtpqr CZ3JLPkMZTkmB01Um9efI gjRa7tRDMcHXF5JJMurKR nF7BsaB0cKcYe UJAsQRCnK5YmeFDzQMbzZ 108GYgsBhT7QYNlarLyS6 ToTNPgtJhrVaT4u2O9Sy4 HAg71PV29MJ96 mDWqk7G3rWI8S6EjRNRbn eqzfwtlcAD5BXSiXHOfjB 88Yq7czCtyTd2oZFNfRCL 9DBExrZFsS2Ez eL7tTySbRXWsGZTcA1Duh OAxRUjzG849NNgyGjS7QU IrdwXmQ7VoHOQfsAiqXcQ 4c4O2Jb5GCSjg zch5U5FvWowscWU+PC90Y SBiZI11zBCseNMau7xouC n2LrStLIOuANA0sTfjYNw rr8YxKCTaH88u bGFw (more content not included)... Normal [facility] Physician Orderon 07-27-2021 Physician Order [id number] Normal [facility] PSA SCREENING LABCORPon Prostate specific Ag [Mass/Vol] 2.4 ng/mL Normal 0.0-4.[address] [facility] Comment on above: Result Comment: Sana NUÑEZ methodology. . According to the [employer] [place] [employer], Serum PSA should decrease and [...] By: #### P SASCLC #### [facility] [address] [place] [address] Dr. Jose Alves CBC AUTO DIFFon 06-21-2021 BASO # 0.0 103/ul Normal 0.0-0.[address] [facility] Comment on above: Performed By: #### C BC #### [facility] [address] [place] [address] Dr. Jose Alves Basophils/100 WBC (Bld) 0.4 % Normal 0.2-2.[address] [facility] Comment on above: Performed By: #### C BC #### [facility] [address] [place] [address] Dr. Jose Alves EO # 0.1 103/ul Normal 0.0-0.[address] [facility] Comment on above: Performed By: #### C BC #### [facility] [address] [address] [address] Jose Alves Eosinophils/100 WBC (Bld) 2.6 % Normal 0.9-7.[address] [facility] Comment on above: Performed By: #### C BC #### [facility] [address] [place] [address] Dr. Jose Alves Erythrocyte distribution width (RBC) [Ratio] 12.6 % Normal 11.0-15.[address] [facility] Comment on above: Performed By: #### C BC #### [facility] [address] [place] [address] Dr. Jose Alves Hematocrit (Bld) [Volume fraction] 44.2 % Normal 42.0-54.[address] [facility] Comment on above: Performed By: #### C BC #### [facility] [address] [place] [address] Dr. Jose Alves Hemoglobin (Bld) [Mass/Vol] 15.1 g/dL Normal 14.0-18.0 [facility] Comment on above: Performed By: #### C BC #### [facility] [address] [place] [address] Dr. Jose Alves IG # 0.01 10e3/ul Normal 0.00-0.03 [facility] Comment on above: Performed By: #### C BC #### [facility] [address] [place] [address] Dr. Jose Alves IG % 0.2 % Normal 0.0-0.5 [facility] Comment on above: Performed By: #### C BC #### [facility] [address] [place] [address] Dr. Jose Alves LYMPH # 2.2 103/ul Normal 1.2-3.[address] [facility] Comment on above: Performed By: #### C BC #### [facility] [address] [place] [address] Dr. Jose Alves Lymphocytes/100 WBC (Bld) 40.2 % Normal 20.5-60.0 [facility] Comment on above: Performed By: #### C BC #### [facility] [address] [place] [address] Dr. Jose Alves MANUAL DIFF REQ NO Normal [facility] Comment on above: Performed By: #### C BC #### [facility] [address] [place] [address] Dr. Jose Alves MCH (RBC) [Entitic mass] 33.5 pg Normal 25.9-34.[address] [facility] Comment on above: Performed By: #### C BC #### [facility] [address] [place] [address] Dr. Jose Alves MCHC (RBC) [Mass/Vol] 34.2 g/dL Normal 29.9-35.[address] [facility] Comment on above: Performed By: #### C BC #### [facility] [address] [place] [address] Dr. Jose Alves MCV (RBC) [Entitic vol] 98.0 fL Critically high 80.0-94.0 [facility] Comment on above: Performed By: #### C BC #### [facility] [address] [place] [address] Dr. Jose Alves MONO # 0.5 103/ul Normal 0.3-0.8 [facility] Comment on above: Performed By: #### C BC #### [facility] [address] [place] [address] Dr. Jose Alves Monocytes/100 WBC (Bld) 8.9 % Normal 1.7-12.0 [facility] Comment on above: Performed By: #### C BC #### [facility] [address] [place] [address] Dr. Jose Alves NEUT # 2.6 103/ul Normal 1.4-6.5 [facility] Comment on above: Performed By: #### C BC #### [facility] [address] [place] [address] Dr. Jose Alves Neutrophils/100 WBC (Bld) 47.7 % Normal 43.0-75.0 [facility] Comment on above: Performed By: #### C BC #### [facility] [address] [place] [address] Dr. Jose Alves Platelet mean volume (Bld) [Entitic vol] 9.9 fL Normal 9.5-13.[address] [facility] Comment on above: Performed By: #### C BC #### [facility] [address] [place] [address] Dr. Jose Alves PLT 201 103/ul Normal 150-[address] [facility] Comment on above: Performed By: #### C BC #### [facility] [address] [place] [address] Dr. Jose Alves RBC 4.51 106/ul Critically low 4.70-6.10 The [facility] Comment on above: Performed By: #### C BC #### [facility] [address] [place] [address] Dr. Jose Alves WBC 5.4 103/ul Normal 4.0-11.0 [facility] Comment on above: Performed By: #### C BC #### [facility] [address] [place] [address] Dr. Jose Alves MICROALBUMIN, RAND URon mALB 2.1 mg/L Normal <=30.0 [facility] Comment on above: Performed By: #### M ALBR #### [facility] [address] [place] [address] Dr. Jose Alves PROF CHEM 8 (BAS METB)on Anion gap [Moles/Vol] 12.5 mmol/L Normal [facility] Comment on above: Performed By: #### B MP #### [facility] [address] [place] [address] Dr. Jose Alves Calcium [Mass/Vol] 8.9 mg/dL Normal 8.4-10.2 [facility] Comment on above: Performed By: #### B MP #### [facility] [address] [place] [address] Dr. Jose Alves Chloride [Moles/Vol] 105 mmol/L Normal 98-[address] [facility] Comment on above: Performed By: #### B MP #### [facility] [address] [place] [address] Dr. Jose Alves CO2 [Moles/Vol] 29.1 mmol/L Normal 22.0-30.0 [facility] Comment on above: Performed By: #### B MP #### [facility] [address] [place] [address] Dr. Jose Alves Creatinine [Mass/Vol] 1.13 mg/dL Normal 0.66-1.[address] [facility] Comment on above: Performed By: #### B MP #### [facility] [address] [place] [address] Dr. Jose Alves EGFR-AF MONEGASQUE >60 Normal >=60 [facility] Comment on above: Performed By: #### B MP #### [facility] [address] [place] [address] Dr. Jose Alves EGFR-NON AF MONEGASQUE >60 Normal >=60 [facility] Comment on above: Performed By: #### B MP #### [facility] [address] [address] [address] Jose Alves Glucose [Mass/Vol] 100 mg/dL Normal 74-106 [facility] Comment on above: Performed By: #### B MP #### [facility] [address] [address] [address] Jose Alves Potassium [Moles/Vol] 4.6 mmol/L Normal 3.4-5.0 [facility] Comment on above: Performed By: #### B MP #### [facility] [address] [address] [address] Jose Alves Sodium [Moles/Vol] 142 mmol/L Normal 137-145 [facility] Comment on above: Performed By: #### B MP #### [facility] [address] [address] [address] Jose Alves Urea nitrogen [Mass/Vol] 22.0 mg/dL Critically high 9.0-20.0 [facility] Comment on above: Performed By: #### B MP #### [facility] [address] [address] [address] Jose Alves Urea nitrogen/Creatinine [Mass ratio] 19.5 mg/mg Normal [facility] Comment on above: Performed By: #### B MP #### [facility] [address] [address] [address] Jose Alves Vital Signs Date Time Vital Sign Value Performing Clinician Facility 01-12-2024 08: Body height 171.45 cm [facility] 01-12-2024 08: Body mass index (BMI) [Ratio] 23.7 kg/m2 [facility] 01-12-2024 08: Body weight 69.85 kg [facility] 01-12-2024 08: Diastolic blood pressure 76 mm[Hg] [facility] 01-12-2024 08: Heart rate 55 /min [facility] 01-12-2024 08:27-0400 Systolic blood pressure 179 mm[Hg] [facility] 07-07-2023 08:30-0500 Body height 171.45 cm Bee Cutler Other [employer] Other 07-07-2023 08:30-0500 Body mass index (BMI) [Ratio] 24.84 kg/m2 Bee Cutler Other [employer] Other 07-07-2023 08:30-0500 Body weight 73.03 kg Bee Cutler Other [employer] Other 07-07-2023 08:30-0500 Diastolic blood pressure 80 mm[Hg] Bee Cutler Other [employer] Other 07-07-2023 08:30-0500 Systolic blood pressure 160 mm[Hg] Bee Cutler Other [employer] Other 01-02-2023 08:30-0400 Body height 171.45 cm Bee Cutler Other [employer] Other 01-02-2023 08:30-0400 Body mass index (BMI) [Ratio] 24.38 kg/m2 Bee Cutler Other [employer] Other 01-02-2023 08:30-0400 Body weight 71.67 kg Bee Cutler Other [employer] Other 01-02-2023 08:30-0400 Diastolic blood pressure 74 mm[Hg] Bee Cutler Other [employer] Other 01-02-2023 08:30-0400 Systolic blood pressure 142 mm[Hg] Bee Ctuler Other [employer] Other 12-05-2022 09:15-0400 Body height 171.45 cm Bee Cutler Other [employer] Other 12-05-2022 09:15-0400 Body mass index (BMI) [Ratio] 24.07 kg/m2 Bee Cutler Other [employer] Other 12-05-2022 09:15-0400 Body weight 70.76 kg Bee Cutler Other [employer] Other 12-05-2022 09:15-0400 Diastolic blood pressure 78 mm[Hg] Bee Cutler Other [employer] Other 12-05-2022 09:15-0400 Systolic blood pressure 159 mm[Hg] Bee Cutler Other [employer] Other Encounters Encounter Date Encounter Type Care Provider Facility Start: 01-12-2024 End: 01-12-2024 ambulatory [facility] Work Phone: Start: 01-12-2024 End: 01-12-2024 Patient encounter procedure [facility] Work Phone: Start: 07-07-2023 End: 07-07-2023 ambulatory Bee Cutler Other [employer] Other Start: 07-07-2023 Office outpatient vi sit 15 minutes Bee Cutler [facility] Start: 01-02-2023 End: 01-02-2023 ambulatory Bee Cutler Other [employer] Other Start: 01-02-2023 Office outpatient vi sit 15 minutes Bee Cutler [facility] Start: 12-05-2022 End: 12-05-2022 ambulatory Bee Cutler Other [employer] Other Start: 12-05-2022 Office outpatient vi sit 15 minutes Bee Cutler [facility] Start: 09-19-2022 End: 09-19-2022 ambulatory Bee Cutler Other [employer] [facility] [employer] Other Start: 09-19-2022 Telephone encounter Bee Cutler [facility] Start: 01-19-[address] BEE CUTLER Facil ity:H1 Start: 01-04-2022 End: 01-05-[address] BEE CUTLER Facility:[facility] Start: 06-21-2021 End: 06-22-[address] BEE CUTLER Facility:[facility] Start: 05-24-2021 End: 05-25-[address] BEE CUTLER Facility:[facility]1 Plan of Treatment Date Care Activity Detail Author Comprehensive metabo lic 1999 panel - Serum or Plasma [facility] enter XR Chest 2 Views [facility] Immunizations Immunization Date Immunization Notes Care Provider Fa cility 03-23-2021 influenza virus vaccine, split virus (incl. purified surface antigen) Bee Cutler Other [employer] [facility] [employer] Other 03-23-2021 influenza virus vaccine, unspecified formulation [facility] 03-24-2020 influenza virus vaccine, split virus (incl. purified surface antigen) Bee Cutler Other [facility] [email or web address] Other 03-24-2020 influenza virus vaccine, unspecified formulation [facility] Payers Date Payer Category Payer Self-pay 1960 Unknown [id number] 1945 Unknown [id number] 2.16.84 [id number] 1945 Unknown [id number] 2.16.84 [id number] 1945 Unknown [id number] 2.16.84 [id number] 1945 Unknown [id number] 2.16.84 [id number] Medicare [id number] 2.1 [id number] Social History Date Type Detail Facility Sex Assigned At [employer] Other Start: 09-11-2023 Tobacco smoking stat us NHIS Ex-smoker (finding) [facility] Start: 1945 Sex Assigned At Male F [facility] Evaluation note 07-07-2023 Note Date & Type [...] medication with food to prevent stomach upset. [employer] Other Evaluation note 01-02-2023 Note Date & [...] and followup at their office in January. [employer] Other Evaluation note 12-05-2022 Note Date & Type Note Facility 12-05-2022 Evaluation note Encounter Date Diagnosis Assessment Notes Nov, Plantar fasciitis, left (ICD-10 - M72.2) Pt already taking aleve. Agrees to referral to Podiatry, requests Dr. Rushing. [employer] Other Evaluation note 09-19-2022 Note Date & Type Note Facility 09-19-2022 Evaluation note Encounter Date Diagnosis Assessment Notes Sep, Essential (primary) hypertension (ICD-10 - I10) [employer] Other Clinical Note 05-25-2021 Note Date & [...] WEEMS Date: 2021-05-25 07:[address] [facility] Evaluation note Note Date & Type Note Facility Evaluation note Diagnosis Onset Date Chronic cough acute HTN (hypertension) [facility] Work Phone: History general Narrative - [...] History rotator cuff repair left should er [employer] Other Summary Purpose Family History Relationship Condition Age at Onset Recorded Date/T teodoro brother Unknown Malignant neoplasm Unknown father Unknown mother Unknown Advance Directives Advance Directive Response Recorded Date/ Time Advance Directives No July 07, 2023 11:06am Reason for Referral Reason *FU 12/13 L planta r fasciitis Diagnosis 1 Plantar fasciitis, l eft (M72.2) Referral Organization [facility] Nasreen berger Referring Provider First Name Bee Referring Provider Last Name Philly Referring Provider Specialty Family [facility] Referred Organization [facility] Referred Provider Tato Rushing Referred Address [address] [place], [place],[address] Referred Provider Specialty Podiatry - S urgical [...] content) DATE CREATED AUTHOR 08/03/2021 Marciano Stone [facility] DATE CREATED AUTHOR AUTHOR'S ORGANLENORA ATION [...] BE BASED ON THE PRIMARY CLINICAL RECORDS. [facility] [employer] [facility]. provides no warranty or guarantee of the accuracy or completeness of information in this document.
== END 2024-02-24 11:22 | disposition home or self-care (01) ==
LOC: EC 11:21
PROVIDERS: PCP Family Medicine; Visit Provider Podiatrist Foot & Ankle Surgery
DX: M79.672 Pain in left foot (principal); M21.42 Flat foot [pes planus] (acquired), left foot
CPT/HCPCS: 73630

== ENCOUNTER 2024-03-19 10:16 | Outpatient (OUT) | payer MEDICARE, SELFPAY ==
--- NOTE | 2024-03-19 | XR_ITS ---
The [address] [address] Patient Name: ANNA DHILLON MRN: [id number] date: 1945 Sex: M Assigned Patient Location: Current Patient Location: Accession/Order Number: [id number] Exam Date: 03/19/2024 10:17 Report Date: 03/21/2024 06:50 At the request of: TATO GARCIA Procedure: XR foot LT min 3V PROCEDURE: XR foot LT min 3V HISTORY: LEFT FOOT PAIN COMPARISON: XR foot left 02/24/2024 FINDINGS: BONES:Dorsal dislocation of the second and third proximal phalanges in relation to the metatarsal heads. No appreciable fracture or dislocation. Mild degenerative joint disease at the first and second tarsal-metatarsal joints. Calcaneal plantar spur. Flattening of plantar arch. SOFT TISSUES:No visible soft tissue swelling. EFFUSION:None visible. OTHER: Negative. XR/XR foot LT min 3V IMPRESSION: 1. Posterior dislocation at the second third metatarsophalangeal joints. 2. Degenerative changes and pes planus. Electronically authenticated by: HATTIE SCHAEFER Date: 03/21/2024 06:50
--- OUTSIDE RECORDS SUMMARY | 2024-03-19 10:31 | XMS_ITS | CCD ---
Author Organization [facility] Care Team Providers Care Air Pollution Auditor Name Role Phone DR BEE CUTLER Primary [...] RUSHING Attending Unavailable TATO RUSHING Admitting Unavailable SOSO, DR CLARISSA Andrade Consulting Unavailable TATO RUSHING [...] CLARISSA NOVAK Date: 2022-01-04 08:32 Normal [facility] Coding Summary.on 08-02-2021 Coding Summary. [id number] G h0bWw+PGhlYWQ+VC6QHRN gH97qeAGicV6KR2wKNX9C HMHPINJICX8LTL2anKN6K IsfU0KcfxXf YbncbSUrON37LLh8WTF3l LdtDTbwaM9ofFLhP8r8Hx HgGC53iY69JKqbUYJjGiA 3LjZpbjsgbWFy N4bfCuCbsXJuEqe+PHRhY mxlIHdpZHRoPScxMDAlJy WacXytHI9hNt3gQMXyWPD vbGxhcHNlOiBj s3njKVOgYXgtXD0owUzuB 0CrvJT6EKCzz5f7Tp62jF I+BOEjFRP9sLgjNAibd85 2EkIqq7jgCJN4 hALiWEnvFOJ3Q31vj7G0X NIrKCZrOGZ7rQI5zR7etT ocikqiP7JehMOaFaM4XZR 1qMRsaP5ynTfp pbibfK8wVhw+O16TCH0QQ OFYLE0XOpw0E8BnYrjdqX I+QI10BZHeRY30aGQjgHL fx1pwyZq5KiMh IUApEOV1zIojJJwql8NwP JOfN48qgPIuy2C7ZMVgvA faaETdPxFjbYX4dH9qBRq jtrgpx9fcjmad Bvfii3szwg04qH35O82tW BsrTHFsPZX5EVTtRHIbrB fyeg5vlD8vNg6+ZWagf7i jt9bnmJh5LhBs EZOxjtFlxKucREK9r3HoF x45K7TfzUxet6FyPpd5le 12eHQly9N8wVS2FDsyMVI pbQ6fNYtqJgB0 XNNbGpSedC49eTXmKOzsR b0tpIyptSwzID3lOQBptq ukGKBlvK1wNHXsfMLxkMj wSQ0kABQyydep d212HoSnAAJ0ERZjdRUyQ 9FuaE1uBpFxPRRhVJZiO0 MouVLiIDsfD825VVkwCeV 9YIPqjmHuK1Hk NIKoeGufRhE2e3T2Rv9Eb 8PgnhmiMYS4HKflVCFsJp W8AjVgOeZ0Z8TrUwe2IEX srEyvZI6eR2Nn FQZxsxmiijmbwVA4GEDlF FOjzQ70hKQlMFfkRr0po9 O7u931NWLwSIQtoO91Rd9 udDogMTBwdCBU cK9flyvik3toolbyVpMdB NIyWOt2SBu9DDRwwWhrBp UqTRJ2SfM3TCW6xQZbyF0 hiXefkqnpyD2o Oyc+T84ueI2pZSE7OYO7n mrxUXCywgBkUE32HY20B6 RyPjwvdGFibGU+PGRpdiB zqLilFU0jStJp v0qkz4FaQUkzL7DwDGQaM VhiMjh1BIGiOFV0jFG9uG 2iWJYnADwtz2K0aVR5D1P wjnHsga4ty6ba YNChMPxoY91jxLFit2L8Z MSnuPW4ATZbgQzxPsGvmY 93Oyc+BDHumMgzo6ZxNmd gq7qyd0ochWt2 FaDnMRSetvJjfTghMBH7f 3DpLk53F56sWZeuTETsLD ZbDNHqCJXyuQikot0gcV2 wIi8+PGNvbCB3 xKS0dH3gUWOiIiR0DRpoE 728LvNlzGPsKydqx7vrp5 fiiAm7BnXiWZIdujPhwHj zYVZ8a3EbWy27 C34vEVtvCNCzQHTqQNVaM QQkpFeukl3laV0mJo6+PC 8pq0jyqw22kO92eGW+PHR uZNU7lDtaRXaa GMKllP8zWJvcVyK8BRGhC tXjaN64iEQiZLrdIh9ogB dtcJxjBY8jFMNphywpk87 0LaIrj2rzPFUm tXJaJJtgDTX2X07cy4M4M OKmHCHcOHZ1dDV5aM6adY lnbjogbGVmdDsgdmVydGl nPLhpBRyaE235 IHRvcDsnPlBhdGllbnQgT pArVQv1U1FzMhe0ZVHvwX iwRZ9lvEVcTPygKw7asRn otOvwLI3hWHOs jrssz645XiQes2mnBQJeq CVcJKlpEXH4D45yy5U6EQ WjJVTlFAL6fFO7hF7tgWq nbjogbGVmdDsg gmOgnHxtEVhxYRxiN823V HRvcDsnPkJpcnRoIERhdG M2OW68CH83kDQgp4T0bAU 5E3OaQRLrcmwi rnvntWO3EJTlYZJesR41S j5qxJcaXv6pGOEfEYW2GA KhoYWbZ2BhaM5zWjIqZDN lYPGjI7XskVSc LQoiI731NXwzHjR0HDLxm qSaO0KjJKPkrNqkDyS3c9 H3Tv8RK3J8ID31CJ24cMG gw7L8kRM4P8Cv EJWawwickdgmqXJ5CNXbH FLleY99Kh8mfMsfLt3hAQ ImDYS2DLMcgVQhS8TlaK9 yOiAjMDAwMDAw T8FqpYJaZCbhO622OKtcR iB6VPTyyzVmI5BuCSBuyD zqJyQ2l8I5By9HPRz7NL4 8WG13rFGyz4X1 wMK2Q0SoUCCptgzcaxufc TT6HZNoTIBlhO92Qn0prJ nxPs1fGHGwCQP4SIDqhXW fF8MylG0gFiCk CFVgLEQpS8BygJXbHUnhJ 138YDoeLrS5KDZwawQcO5 EeFFVqxTetUzK2o1L6Gq8 JDHStDE74SQA2 zAI0QO64VW01O6WhRikqu GFibGU+PHRhYmxlIHdpZH RoPScxMDAlJyBzdHlsZT0 wQd6uGLXbTVPa mQxusZYiOwFsq3beBIGmE LzhFB6vhFxfM9GfrHT9HY Mpx0o0Sf86N53nB4BpcSI +QMZfqND7xHY9 lP3hYqPhSiE6TBehQ728R xZgcAUhFrsfh2oph9sslH e0GmG1ZTClekOueGwjUUU 6h9PkMo65U79k IHdpZHRoPSIxNSUiIHZhb Cpdxn2njN0iDt7+PGNvbC W1oCW9gT5dGeOgYvB9DLw xW349NuIbzRUx Xqoey0qzo7amnFn4DeHbP SKjlpQgwQcsDKQ1l9PkDf 67A6ZfxKhsw7IkBqj8rm1 4wDMgj9A9uNU6 L6QfYQMpizryiXAteAiyQ D5xQGVlgrzmPAEfiJ6gQR DmR8u6DlGiSpD4BGrxW4Z dywM9THOfjQNe EImoZNG9N31ov2C5POEiW KLhDLZ0nKH2wV7yjCwajw ogbGVmdDsgdmVydGljYWw zJJjuT981MEVn fGmjYJEfkF8xMTJyqRXbl PwcRI0iNUDkxoxvUlYWIO fYACueKZgFV9YAGFSHBA9 3XO50sKLxg2W8 xVC7A8GsHHJsisehxqdtz TR5PCDcIYJiuZ55nOIpAF stKw2je3C8k981EPZvXXJ hyX15Np9vzOgj DMUskMOFwP6cohbfk6fen hlrTwCqBQNqWHg4JUs4QF VshYaoZoKqUTY0DrC9VUQ 1lKXtbL9qfRrd fxafaA3tDhh+MTIvMjYvM Gu9WTotsFI+NAAyFJO4vT lkOQooVQXtcL3iLGGoM3v 7TrMuUfP0DYmr F9QwTZHfwgvaOa48qO6bI uKsQsD2ZYsgB6QcrgO4NP GheLOhLUdvSPQ7T97js5R 5LWBcIZVoNEW3 iAO2sC8jbKxjkhjoqBPxd DsgdmVydGljYWwtYWxpZ2 94EWGolZndFqz9MVhhEDN kRC46UM08eMYn j3K5xVU8F5SbEMQjzpkbv pjyoMZ3JXFoJFZspL55sD JrYTrqTa2nj5N0d695IIS oDSNjrK95Vs3a wTjeXIPgaGILmE9tyqpln 0ynotelMzFiFNNvZEs1NM p3KWGgfSasNdKqNRB0PyV 6QZD9gBZamU8y aIbssdgplI4cVff+TWFsZ TwvdGQ+BSVnCVE1mNuvTG eeGVOvyL4vKRBfN6b6EtJ vYmO7BFqnQ8Om OADnektiWo21iI6iKfNlI fI4VGcnR7NybkF0XTTnhP LlFLsrAZY9V12py8M0UYZ oXHPgAJO0iVV1 fI9lnMfbunhxvSNdzCveu hUclLxxVYbaNKsoI761GC RucCleWbnkIpZKcn0qCQ8 mZjwvdGQ+PC90 rz76B2OxAlgaIyv3EZObB PA2zRD3cY9fOPWuWZchj8 M9zYQ9W0GgmdFcuq5qs0x aIEEdILowM51e kWMyr0C6IHLzcOM4UJAwj KerGmQjjK18Tls+PGNvbG wlu7GhWsnii5ycz3nnsWb 9IjMwJSIgdmFs eUggQWO0e1DkVw46D65yO HdpZHRoPSIzMCUiIHZhbG ebws2dqW8vPl5+PGNvbCB 6hOF7jA6dMiUw IsX5OZioB520BlMrbBYwO dmbb3vcv4cszGu5HmBmBR UonfUojQteEXK3a6PiHw3 1F4EuxBeox2Qm Wrq9ir90uHNdb5P2lKE3E 3BhZGRpbmctbGVmdDogMC 5bKKXxahmzTEFimP1kLTZ dZ3x7KwTgAdC0 NUngT0WqurE9XIBerDMvP MNphVCMjM4lmkgem5kyzc mlZfSqLOUeLEs6UJl2YNI saWduOiBsZWZ0 OpR8PGW6nBJbpU1smGpvp ukkcR0zVnk+OCk6z5uodU UhDN3azAY3AB14HM14wIC zl6W8xML1K8Kx CBYwblfrdwvyiMW1KTDfF FKthP46Yj7eaFnyPg8eMU CwAPK6RQSifRKyQ1EngU9 yOiAjMDAwMDAw W3TsaFQsOXlqU022EAakW vG5UEEbvnYhV0OkVXZwaZ nhSwK2s8Y4Jt9VYM74LZ4 1LO54tGYtl7Q5 uJH2B2LlWSEufwxarvomz CL9AUNtGXAhtV23Vh7lqA ynLt5iKVJoKYD2GTWaaFT bA0KscQ5cFqMe TJSyHEIxN2BoeQFlJFscG 656PMoiSmU3IBAkrqTzY6 MnLPKqjQrkSnR4y6W8Hi6 WIk29RK16ID59 fLGtz5F1mUJ6L2QuJSTwk jitdwtdbCP4RPVkROZnmQ 80Qy1uuCjvNm3jMTCuQSB 6PTBpjBUsP7Of aY1pRzXzUUIdZCHiE4Xmq EHaXOfvM551ORakHjT4SK LfpqMqM8UdZJOeeCvdMoF 5g7O8Zy0WICcz aar9L1YiXdahqQQ+PC90Y TFiJB42kHRwiJCbr9fotI g4IxQaTGViSSD3cYvmKAa zn8CkZKZpV68f bGFw (more content not included)... Normal [facility] Physician Orderon 07-27-2021 Physician Order [id number] Normal [facility] PSA SCREENING LABCORPon Prostate specific Ag [Mass/Vol] 2.4 ng/mL Normal 0.0-4.0 [facility] Comment on above: Result Comment: Sana NUÑEZ methodology. . According to the [employer], Serum PSA should decrease and [...] disease. Performed By: #### P SASCLC #### [facility] [address] [place] [address] Dr. Jose Alves CBC AUTO DIFFon 06-21-2021 BASO # 0.0 103/ul Normal 0.0-0.1 [facility] Comment on above: Performed By: #### C BC #### [facility] [address] [place] [address] Dr. Jose Alves Basophils/100 WBC (Bld) 0.4 % Normal 0.2-2.0 [facility] Comment on above: Performed By: #### C BC #### [facility] [address] [place] [address] Dr. Jose Alves EO # 0.1 103/ul Normal 0.0-0.7 [facility] Comment on above: Performed By: #### C BC #### [facility] [address] [address] [address] Jose Alves Eosinophils/100 WBC (Bld) 2.6 % Normal 0.9-7.0 [facility] Comment on above: Performed By: #### C BC #### [facility] [address] [place] [address] Dr. Jose Alves Erythrocyte distribution width (RBC) [Ratio] 12.6 % Normal 11.0-15.0 [facility] Comment on above: Performed By: #### C BC #### [facility] [address] [place] [address] Dr. Jose Alves Hematocrit (Bld) [Volume fraction] 44.2 % Normal 42.0-54.0 [facility] Comment on above: Performed By: #### C BC #### [facility] [address] [place] [address] Dr. Jose Alves Hemoglobin (Bld) [Mass/Vol] 15.1 g/dL Normal 14.0-18.0 [facility] Comment on above: Performed By: #### C BC #### [facility] [address] [place] [address] Dr. Jose Alves IG # 0.01 10e3/ul Normal 0.00-0.03 [facility] Comment on above: Performed By: #### C BC #### [facility] [address] [place] [address] Dr. Jose Alves IG % 0.2 % Normal 0.0-0.5 [facility] Comment on above: Performed By: #### C BC #### [facility] [address] [place] [address] Dr. Jose Alves LYMPH # 2.2 103/ul Normal 1.2-3.8 [facility] Comment on above: Performed By: #### C BC #### [facility] [address] [place] [address] Dr. Jose Alves Lymphocytes/100 WBC (Bld) 40.2 % Normal 20.5-60.0 [facility] Comment on above: Performed By: #### C BC #### [facility] [address] [place] [address] Dr. Jose Alves MANUAL DIFF REQ NO Normal [facility] Comment on above: Performed By: #### C BC #### [facility] [address] [place] [address] Dr. Jose Alves MCH (RBC) [Entitic mass] 33.5 pg Normal 25.9-34.0 [facility] Comment on above: Performed By: #### C BC #### [facility] [address] [place] [address] Dr. Jose Alves MCHC (RBC) [Mass/Vol] 34.2 g/dL Normal 29.9-35.2 [facility] Comment on above: Performed By: #### C BC #### [facility] [address] [place] [address] Dr. Jose Alves MCV (RBC) [Entitic vol] 98.0 fL Critically high 80.0-94.0 [facility] Comment on above: Performed By: #### C BC #### [facility] [address] [place] [address] Dr. Jose Alves MONO # 0.5 103/ul Normal 0.3-0.8 [facility] Comment on above: Performed By: #### C BC #### [facility] [address] [place] [address] Dr. Jose Alves Monocytes/100 WBC (Bld) 8.9 % Normal 1.7-12.0 [facility] Comment on above: Performed By: #### C BC #### [facility] [address] [place] [address] Dr. Jose Alves NEUT # 2.6 103/ul Normal 1.4-6.5 [facility] Comment on above: Performed By: #### C BC #### [facility] [address] [place] [address] Dr. Jose Alves Neutrophils/100 WBC (Bld) 47.7 % Normal 43.0-75.0 [facility] Comment on above: Performed By: #### C BC #### [facility] [address] [place] [address] Dr. Jose Alves Platelet mean volume (Bld) [Entitic vol] 9.9 fL Normal 9.5-13.5 [facility] Comment on above: Performed By: #### C BC #### [facility] [address] [place] [address] Dr. Jose Alves PLT 201 103/ul Normal 150-450 [facility] Comment on above: Performed By: #### C BC #### [facility] [address] [place] [address] Dr. Jose Alves RBC 4.51 106/ul Critically low 4.70-6.10 [facility] Comment on above: Performed By: #### C BC #### [facility] [address] [place] [address] Dr. Jose Alves WBC 5.4 103/ul Normal 4.0-11.0 [facility] Comment on above: Performed By: #### C BC #### [facility] [address] [place] [address] Dr. Jose Alves MICROALBUMIN, RAND URon mALB 2.1 mg/L Normal <=30.0 [facility] Comment on above: Performed By: #### M ALBR #### [facility] [address] [place] [address] Dr. Jose Alves PROF CHEM 8 (BAS METB)on Anion gap [Moles/Vol] 12.5 mmol/L Normal [facility] Comment on above: Performed By: #### B MP #### [facility] [address] [place] [address] Dr. Jose Alves Calcium [Mass/Vol] 8.9 mg/dL Normal 8.4-10.2 [facility] Comment on above: Performed By: #### B MP #### [facility] [address] [place] [address] Dr. Jose Alves Chloride [Moles/Vol] 105 mmol/L Normal 98-107 [facility] Comment on above: Performed By: #### B MP #### [facility] [address] [place] [address] Dr. Jose Alves CO2 [Moles/Vol] 29.1 mmol/L Normal 22.0-30.0 [facility] Comment on above: Performed By: #### B MP #### [facility] [address] [place] [address] Dr. Jose Alves Creatinine [Mass/Vol] 1.13 mg/dL Normal 0.66-1.25 [facility] Comment on above: Performed By: #### B MP #### [facility] [address] [place] [address] Dr. Jose Alves EGFR-AF ICELANDIC >60 Normal >=60 [facility] Comment on above: Performed By: #### B MP #### [facility] [address] [place] [address] Dr. Jose Alves EGFR-NON AF ICELANDIC >60 Normal >=60 [facility] Comment on above: Performed By: #### B MP #### [facility] [address] [address] [address] Jose Alves Glucose [Mass/Vol] 100 mg/dL Normal 74-106 [facility] Comment on above: Performed By: #### B MP #### [facility] [address] [address] [address] Jose Alves Potassium [Moles/Vol] 4.6 mmol/L Normal 3.4-5.0 [facility] Comment on above: Performed By: #### B MP #### [facility] [address] [address] [address] Jose Alves Sodium [Moles/Vol] 142 mmol/L Normal 137-145 [facility] Comment on above: Performed By: #### B MP #### [facility] [address] [address] [address] Jose Alves Urea nitrogen [Mass/Vol] 22.0 mg/dL Critically high 9.0-20.0 [facility] Comment on above: Performed By: #### B MP #### [facility] [address] [address] [address] Jose Alves Urea nitrogen/Creatinine [Mass ratio] 19.5 mg/mg Normal [facility] Comment on above: Performed By: #### B MP #### [facility] [address] [address] [address] Jose Alves Vital Signs Date Time Vital Sign Value Performing Clinician Facility 01-12-2024 08: Body height 171.45 cm [facility] 01-12-2024 08: Body mass index (BMI) [Ratio] 23.7 kg/m2 [facility] 01-12-2024 08: Body weight 69.85 kg [facility] 01-12-2024 08: Diastolic blood pressure 76 mm[Hg] [facility] 01-12-2024 08: Heart rate 55 /min [facility] 01-12-2024 08:27-0400 Systolic blood pressure 179 mm[Hg] [facility] 07-07-2023 08:30-0500 Body height 171.45 cm Bee Cutler Other [facility] 07-07-2023 08:30-0500 Body mass index (BMI) [Ratio] 24.84 kg/m2 Bee Cutler Other [facility] 07-07-2023 08:30-0500 Body weight 73.03 kg Bee Cutler Other [facility] Other 07-07-2023 08:30-0500 Diastolic blood pressure 80 mm[Hg] Bee Cutler Other [facility] Other 07-07-2023 08:30-0500 Systolic blood pressure 160 mm[Hg] Bee Cutler Other [facility] Other 01-02-2023 08:30-0400 Body height 171.45 cm Bee Cutler Other [facility] Other 01-02-2023 08:30-0400 Body mass index (BMI) [Ratio] 24.38 kg/m2 Bee Cutler Other [facility] 01-02-2023 08:30-0400 Body weight 71.67 kg Bee Cutler Other [facility] Other 01-02-2023 08:30-0400 Diastolic blood pressure 74 mm[Hg] Bee Cutler Other [facility] Other 01-02-2023 08:30-0400 Systolic blood pressure 142 mm[Hg] Bee Cutler Other [facility] Other 12-05-2022 09:15-0400 Body height 171.45 cm Bee Cutler Other [facility] Other 12-05-2022 09:15-0400 Body mass index (BMI) [Ratio] 24.07 kg/m2 Bee Cutler Other [facility] Other 12-05-2022 09:15-0400 Body weight 70.76 kg Bee Cutler Other [facility] Other 12-05-2022 09:15-0400 Diastolic blood pressure 78 mm[Hg] Bee Cutler Other [facility] Other 12-05-2022 09:15-0400 Systolic blood pressure 159 mm[Hg] Bee Cutler Other [facility] Other Encounters Encounter Date Encounter Type Care Provider Facility Start: 01-12-2024 End: 01-12-2024 ambulatory [facility] Work Phone: Start: 01-12-2024 End: 01-12-2024 Patient encounter procedure [facility] Work Phone: Start: 07-07-2023 End: 07-07-2023 ambulatory Bee Cutler Other [facility] Other Start: 07-07-2023 Office outpatient vi sit 15 minutes Bee Cutler [facility] Start: 01-02-2023 End: 01-02-2023 ambulatory Bee Cutler Other [facility] Other Start: 01-02-2023 Office outpatient vi sit 15 minutes Bee Cutler [facility] Start: 12-05-2022 End: 12-05-2022 ambulatory Bee Cutler Other [facility] Other Start: 12-05-2022 Office outpatient vi sit 15 minutes Bee Cutler [facility] Start: 09-19-2022 End: 09-19-2022 ambulatory Bee Cutler Other [facility] Other Start: 09-19-2022 Telephone encounter Bee Cutler [facility] Start: 01-19-[address] BEE CUTLER Facil ity:H1 Start: 01-04-2022 End: 01-05-[address] BEE CUTLER Facility:[facility] Start: 06-21-2021 End: 06-22-[address] BEE CUTLER Facility:[facility] Start: 05-24-2021 End: 05-25-[address] BEE CUTLER Facility:[facility]1 Plan of Treatment Date Care Activity Detail Author Comprehensive metabo lic 1999 panel - Serum or Plasma [facility] enter XR Chest 2 Views [facility] Immunizations Immunization Date Immunization Notes Care Provider Fa cility 03-23-2021 influenza virus vaccine, split virus (incl. purified surface antigen) Bee Cutler Other [facility] [place] Other 03-23-2021 influenza virus vaccine, unspecified formulation [facility] 03-24-2020 influenza virus vaccine, split virus (incl. purified surface antigen) Bee Cutler Other [facility] Other 03-24-2020 influenza virus vaccine, unspecified formulation [facility] Payers Date Payer Category Payer Self-pay 1960 Unknown [id number] 1945 Unknown [id number] 2.16.84 [id number] 1945 Unknown [id number] 2.16.84 [id number] 1945 Unknown [id number] 2.16.84 [id number] 1945 Unknown [id number] 2.16.84 [id number] Medicare [id number] 2.1 [id number] Social History Date Type Detail Facility Sex Assigned At [facility] Other Start: 09-11-2023 Tobacco smoking stat us NHIS Ex-smoker (finding) [facility] Start: 1945 Sex Assigned At Male [facility] Evaluation note 07-07-2023 Note Date & Type [...] medication with food to prevent stomach upset. [facility] Other Evaluation note 01-02-2023 Note Date & [...] and followup at their office in January. [facility] Other Evaluation note 12-05-2022 Note Date & Type Note Facility 12-05-2022 Evaluation note Encounter Date Diagnosis Assessment Notes Nov, Plantar fasciitis, left (ICD-10 - M72.2) Pt already taking aleve. Agrees to referral to Podiatry, requests Dr. Rushing. [facility] Other Evaluation note 09-19-2022 Note Date & Type Note Facility 09-19-2022 Evaluation note Encounter Date Diagnosis Assessment Notes Sep, Essential (primary) hypertension (ICD-10 - I10) [facility] Other Clinical Note 05-25-2021 Note Date & [...] by: CLARISSA WEEMS Date: 2021-05-25 07:15 [facility] Evaluation note Note Date & Type Note Facility Evaluation note Diagnosis Onset Date Chronic cough acute HTN (hypertension) [facility] Work Phone: History general Narrative [...] History rotator cuff repair left should er [facility] Other Summary Purpose Family History Relationship Condition Age at Onset Recorded Date/T teodoro brother Unknown Malignant neoplasm Unknown father Unknown mother Unknown Advance Directives Advance Directive Response Recorded Date/ Time Advance Directives No July 07, 2023 11:06am Reason for Referral Reason *FU 12/13 L planta r fasciitis Diagnosis 1 Plantar fasciitis, l eft (M72.2) Referral Organization [facility] Nasreen berger Referring Provider First Name Bee Referring Provider Last Name Philly Referring Provider Specialty Family [facility] Referred Organization [facility] Referred Provider Tato Rushing Referred Address [address], [place],[address] Referred Provider Specialty Podiatry - S urgical [...] content) DATE CREATED AUTHOR 08/03/2021 Marciano Stone [facility] DATE CREATED AUTHOR AUTHOR'S ORGANLENORA ATION 01/19/2022 [...] BE BASED ON THE PRIMARY CLINICAL RECORDS. [facility] [employer] [facility] provides no warranty or guarantee of the accuracy or completeness of information in this document.
== END 2024-03-19 10:17 | disposition home or self-care (01) ==
LOC: EC 10:16
PROVIDERS: PCP Family Medicine; Visit Provider Podiatrist Foot & Ankle Surgery
DX: M79.672 Pain in left foot (principal); S93.125A Dislocation of metatarsophalangeal joint of left lesser toe(s), initial encounter; M21.42 Flat foot [pes planus] (acquired), left foot
CPT/HCPCS: 73630

== ENCOUNTER 2024-03-29 08:14 | Outpatient (OUT) | payer MEDICARE, SELFPAY ==
--- NOTE | 2024-03-29 | XR_ITS ---
The [address] [address] Patient Name: ANNA DHILLON MRN: [id number] date: 1945 Sex: M Assigned Patient Location: Current Patient Location: Accession/Order Number: [id number] Exam Date: 03/29/2024 08:25 Report Date: 03/30/2024 07:02 At the request of: HATTIE OBREGON Procedure: XR hip RT 2V w/ pelvis PROCEDURE: XR hip RT 2V w/ pelvis COMPARISON: None. HISTORY: RIGHT HIP AND PELVIS PAIN FINDINGS: BONES:No acute fracture or dislocation. Mild bilateral hip osteoarthritis with marginal osteophyte formation and joint space narrowing SOFT TISSUES:Negative. No visible soft tissue swelling. EFFUSION:None visible. OTHER: Negative. XR/XR hip RT 2V w/ pelvis IMPRESSION: Mild bilateral hip osteoarthritis Electronically authenticated by: CLARISSA WEEMS Date: 03/30/2024 07:02
--- OUTSIDE RECORDS SUMMARY | 2024-03-29 08:18 | XMS_ITS | CCD ---
Author Organization [facility] Care Team Providers Care Homebound Teacher Name Role Phone DR BEE CUTLER Primary [...] RUSHING Attending Unavailable TATO RUSHING Admitting Unavailable [place], DR CLARISSA Andrade Consulting Unavailable TATO RUSHING [...] as needed; Note: Source Status: Taking; Provider: Phlily Gamboa ( ) take 1 capsule by [...] CLARISSA NOVAK Date: 2022-01-04 08:32 Normal [facility] Coding Summary.on 08-02-2021 Coding Summary. CD:[id number] G h0bWw+PGhlYWQ+MD2ALCD aT13lvNUnoQ1QI9vGMF1K GWYMZQWUEP5NPX7vqKV5N HsrD8QlvcNm CiajlYOnYI08AEs4RDF2v KvrTLaisH6tcKXqU3q8So HnFH44yV49TWtrHEVaJrB 3LjZpbjsgbWFy P8fuEuBuuKNdRhx+PHRhY mxlIHdpZHRoPScxMDAlJy DciMulPP3wSl8xYYNkOKS vbGxhcHNlOiBj l7rqHZAeUXsdMB9vzIpqV 9CkhYH8HZImk2v0Xn72mJ I+OLTlRMW5wKvsZMdur21 2NyOcv6byCGO0 rJVxTOjhAAC5P17xh2S0Q OPjHTZhAUX8sOK4rY3vmI wgktbkZ4PzrSQbFjU6RSV 6yJDgbF7fySme psvsgS1cOqn+F33DOA0GO UBASO5RPuc6Z3AtRwipqZ I+KM52AFOgVW06vNNoxUC iw9kqqFd8IgEy YDEdOYS9oTxgCIfgh8ZxY ENqZ16ogGEhi5Z2PQRrnT elrAOrEeNjbXS2cU8cGPe goeoja5mrjjee Bfjfv6zqcw25wQ51C08jM UvdQWQiUHR9SOLmZNWzrW yxsj0skI2bBu3+ZQiwe5b bl4yveQe3TwKz HOUoxdFzgQdvLBW3g3KwF i64G5WfgIqtm1YzBbi7wm 79gTHgq7R3tZR9YAufXGV dyA0vFShlKwL8 RCOoHcUtkZ62oKYjQKxdW o8vpEqhiXttLX9mYPUxsn cbSPAbhB3sYXIynNHbcNv nED0rAZQqdfqu n060PmFkAFP6CDEcvHWcM 8RfsB0jZoFmNCZgTMSpX6 EcbPUiMPnoA960LTzgQhK 0UYOswsPfE0Fl GAUlhUuoIbE7w9Y3Em7Io 9GzfqpdMWX7CDfeZZJwTe R6ZkPsWdR6B5ReSgx7FZG jmHfeNX5kW0Hk IOVlmxiaqlofzEH3KAIpT WPfbV76yLHhPQafIz1rj0 E2o976ANDsMJRuaP14Wp2 udDogMTBwdCBU tQ7amvuqa5ljidvlWxYxD FOcZIv5WNu9ZDFnwNrwFd UdENB1StK0HFJ1cJFzjT5 jaEqecbovmG5x Oyc+S47nzF8vPLS5LDR5f zttEWHdtcNgRT33AK38C8 RyPjwvdGFibGU+PGRpdiB znAffXA7wXeBa c3ruy1UjHIfcU7RbTVFwY CcpUgk3LKQePJE5zBG3hY 1cUISgTKafm3F8jPR1C2I slxFdda8lh8zm MHPxOTnuH46efRIri5G8C XLmpOT8JGUmcGeyYrUqyU 93Oyc+EGMgmTfcq5WgRnc dv2wgk8jrePp3 SwRoUFFjctEilPtvDRQ9e 4DkJs98B01bGUshGVRoLP AuLLAoTSVkiMmyfy6tjQ9 wIi8+PGNvbCB3 tWV8mB0iUHVnHzH1CHvhP 930CrHmlPQvUxiko6wnq8 qviAj3LtFxKCCwnwBynIm xRKT9r5NvEm07 L90sZNyxEALvITBsYZQxX VXvjGciqk8enQ5rXd2+PC 3ky3ebox37nM03fAV+PHR bYUL3kWziSDrd ENFvwV6sBJtnHhT9OHIzK mVvqD15bLCxIEdtJs0vyQ beoDyiEA0qEMBxqeiuy51 3YyOqm2fxTUZp bYSkRXncDDA2G08up0U6H YPtGROnMNB2bLI2nI7nbN lnbjogbGVmdDsgdmVydGl sCKbfTQxhL368 IHRvcDsnPlBhdGllbnQgT pMhLXk2O8SxOea3JWJllS ywUO5akFLpYIetEv6huSx xiFjvUZ1aMFBi fmzqh877RgLzj1cdWPNcp ETgUZfsYDF7V03bd4K7JG UtZFPfAFI8zAM9tB9coVl nbjogbGVmdDsg ukBxvQrkTVhgCBonK702S HRvcDsnPkJpcnRoIERhdG H5FK73AB98pAKcb6I5tYV 2B5OiYEOewwnr sretaDH3QKVfPRWkqU90E s4srFefYh3yXPUpNRA9OH HbfZWrE5WixQ2gKqHgDOG tNIZhJ9CooGEs IItsN306MUqvGwO9IGVgt bUoE0ApMWTksWizYsB1q3 K5Sp5QH7G7SW90PS82dYZ gz6A5cTJ1U8Xq TCKgwecljyyccGV8ZNUiK TAcjT92Hn3yuPltSf8bZI WxGBZ3CHTzyRVuR6EyfZ7 yOiAjMDAwMDAw P6EciSIyDLyjA571RXtnZ nM7NOZeosGbM6UtCWWldK hbOpI2e4Z1Ri7STMw0GB9 4GW71sFLgr3L0 oQW9A5NuVRAppfhmksnok ZP0UPCzVMXybC24Qq6stK egGh6aXSSqINO0SWThoNP vZ0GmvI6rMvJy ONZkLWXtZ3ZbeBGzRVisZ 649RGiwGwT8SHKfnoEnC0 PgHTSyfQsnAeL0c5M4Vl8 TDXVxVM68FAJ9 tME0CT61OG94E8AoJfvkr GFibGU+PHRhYmxlIHdpZH RoPScxMDAlJyBzdHlsZT0 iMd2tAZKvHDUw mNejdUSdSwQxt9sgLBGwX WdnTH8yyDrgY8SfvWN0JM Gae9p0Xs75F62nU9ZnaBZ +CAUnjDL9lBF0 qE1nFrQtSeK8LUwoJ812Q zGfwYDmUukbz9cmb9rudS u3MnE3QAMgszJeaYwnIGG 4x3DeLg31Y59l IHdpZHRoPSIxNSUiIHZhb Ihkdp8blO8yRo5+PGNvbC H8wJX1bR1mRhImZuU0KKz sE568BgQroWMl Arzfy6wlh5grcWm7UgHdZ ZAafmVaeGpuRGR5c0HrYa 00U8OfdNhfx5QuXga6ua8 6zITbs0I0wTG9 D7VfRXBszjnzbCIjlGdnC P6jARNwobljDIGnzD4nCE GvJ9f0PmPwCnZ7NIqqZ9O detT9JBNguTLr RMohWQU6O87mj9Y7XHSvU KQzYTW3oZB4tK6joIdzqk ogbGVmdDsgdmVydGljYWw qOJsnY402SDFs zBzwJJEhoH6wNPEvhMKxb UrlNT7xZZNpnjhaYwEVOQ iTNYvwAOqBE9RBPVQLMD8 7HS85yWWfo1P2 hFO6R1IzJTRrdftgwlhjn YU3KJLgLOVwoU35fPDeCT ufNh8fy6E2e065WAFoSES icI14Yq8moHuw LSFmmDBBlH3yghkol7qcg udhChJrPQRrAFk7XVg6OT BnaYolSxOhYPI8JyM8NYC 2qSRabG5bvCvx uibwrI0zSgd+MTIvMjYvM Gr2QFedzGB+ZKKqVIS9fB rrHFcoSRQevE9dFDNvL2e 1VzDrLhC5WZla T1UiBVNhiruwIn15kB5hC kPqKgG3OKynF1LcjzQ1QM NcnZJcZZsdPQC9Z36cg5P 5RGThYRTuWWA7 oLP7rR4mkDhgzivcrZTdo DsgdmVydGljYWwtYWxpZ2 18ZPIfuSokUtw8IDsjUZK iRT85VR92pAId x8F8sSR7Q5GzJEFonnwsv vpfqYO6TWZkQVUlvO23vS WxMVktZo0de2U8u612CID rRIPxmT33Fx9q fOmbAPDbvFHMjK0fujqmf 1wsqadrZqNoNJYxASi0UZ v4EQFjuRwnLgGuUHT9RoL 8ZNF8cUXxrE4g cTiulbyqbX1pRwj+TWFsZ TwvdGQ+PQCmUFG6oGllGP bdNNPmxM9iLNRzM0i8DyG lBdX1LVwoM7Es UZEuqskhAt50nE5cDoGzO pP5FBvxH9ZxumB9MXNoxI XiLNpoSFX6A17sj1A7ZVJ jNNVxENC8iMU3 uI3ilNjgytzaqVDsoBjqy zMkwFswZTwjGNinZ565NR FfpPxfMogdRzRZwq5cIJ9 mZjwvdGQ+PC90 lf06A4ZlXpcsBmf0QGKwJ KD0mYW1bJ2hSPEqKIfpq7 A2fVM4W0WvlkDmnb1gx1i rKFVpXBweU29u rIDrc9C4FJFddNW0WGSur CnuGpBgoX27Slu+PGNvbG kyy5CjFegdw6kyk1kllOv 9IjMwJSIgdmFs tMgyIIP2s4JfGw73V75hH HdpZHRoPSIzMCUiIHZhbG fnmo5jsM6mQk2+PGNvbCB 4yKY7lL7zHrJv XuS6VBfyC833BjIklQUtK dwwq7flp0szwGr2NyKrSX RwofTysGwcZJA4q3NyMh6 2M3VtpQwde2Xg Ims9cu33dUHnq1X0tVQ5E 3BhZGRpbmctbGVmdDogMC 2yQCYabokwCZWqbX7gSZV cV1z0ZqRzPqA9 WBaxN2OnzqG0MRYxoAYmC ZFtwIOTxL4yeljpy0fvdw bqVsOhOYFfQBt1BEf9JHE saWduOiBsZWZ0 TaK4GTY4lNYdxN4plXogf dbalJ5lIcj+LOx8c4ybnR LgRS3wsVA1LG37JL40eTI nj3K8sVW0W2Jp AYSlpgenrcwtyPZ8XCEpP MQgwB11Rm1zgIysOv2gBL PkXSA0HGLtrVClV4WjeR5 yOiAjMDAwMDAw O6TnyVTvYQmxO927CCpvS fE0LHBxhlLcO2XlXLKcdT viLzT2o9V3Ce7SXR50PU5 0BE71iKCgr1U5 qNR4P7GxDKJrzbzdlazxm JY3MQIyXUZomL81Fb8ouB suQq5oEJOvEUC0FWNoaMZ qD8RlhF9kJnGy OQQqUCPkP8WzySEqYAqfD 625CRrdIgV9YERrfhCqN7 OySHBoxXejTmG3i4T4Vb1 XGb35TD51XH39 wDVol8W6tWX8A3ApVMLis zwovpggaAT2NJSnDYUjbG 09Mc7qiWvuWk3jKUDeWSQ 9ROJboJZpT1Ow lI0eXjPyODNeXZPuZ5Eil YNaGJohC032OOghMnT7EP AxwnWwZ3TwNZYjlEeaGyG 7u2J0Nv1UYWzu nwd8X6RuCvzguXI+PC90Y VGxUR89nKHjuEPso5otaK z2TnBzEUTbIUF9pQliKPv bu9EkELLcP85o bGFw (more content not included)... Normal [facility] Physician Orderon 07-27-2021 Physician Order [id number] Normal [facility] PSA SCREENING LABCORPon Prostate specific Ag [Mass/Vol] 2.4 ng/mL Normal 0.0-4.0 [facility] Comment on above: Result Comment: Sana NUÑEZ methodology. . According to the [place] [employer], Serum PSA should decrease and [...] disease. Performed By: #### P SASCLC #### [facility] [address] [place] [address] Dr. Jose Alves CBC AUTO DIFFon 06-21-2021 BASO # 0.0 103/ul Normal 0.0-0.1 [facility] Comment on above: Performed By: #### C BC #### [facility] [address] [place] [address] Dr. Jose Alves Basophils/100 WBC (Bld) 0.4 % Normal 0.2-2.0 [facility] Comment on above: Performed By: #### C BC #### [facility] [address] [place] [address] Dr. Jose Alves EO # 0.1 103/ul Normal 0.0-0.7 [facility] Comment on above: Performed By: #### C BC #### [facility] [address] [address] [address] Jose Alves Eosinophils/100 WBC (Bld) 2.6 % Normal 0.9-7.0 [facility] Comment on above: Performed By: #### C BC #### [facility] [address] [place] [address] Dr. Jose Alves Erythrocyte distribution width (RBC) [Ratio] 12.6 % Normal 11.0-15.0 [facility] Comment on above: Performed By: #### C BC #### [facility] [address] [place] [address] Dr. Jose Alves Hematocrit (Bld) [Volume fraction] 44.2 % Normal 42.0-54.0 [facility] Comment on above: Performed By: #### C BC #### [facility] [address] [place] [address] Dr. Jose Alves Hemoglobin (Bld) [Mass/Vol] 15.1 g/dL Normal 14.0-18.0 [facility] Comment on above: Performed By: #### C BC #### [facility] [address] [place] [address] Dr. Jose Alves IG # 0.01 10e3/ul Normal 0.00-0.03 [facility] Comment on above: Performed By: #### C BC #### [facility] [address] [place] [address] Dr. Jose Alves IG % 0.2 % Normal 0.0-0.5 [facility] Comment on above: Performed By: #### C BC #### [facility] [address] [place] [address] Dr. Jose Alves LYMPH # 2.2 103/ul Normal 1.2-3.8 [facility] Comment on above: Performed By: #### C BC #### [facility] [address] [place] [address] Dr. Jose Alves Lymphocytes/100 WBC (Bld) 40.2 % Normal 20.5-60.0 [facility] Comment on above: Performed By: #### C BC #### [facility] [address] [place] [address] Dr. Jose Alves MANUAL DIFF REQ NO Normal [facility] Comment on above: Performed By: #### C BC #### [facility] [address] [place] [address] Dr. Jose Alves MCH (RBC) [Entitic mass] 33.5 pg Normal 25.9-34.0 [facility] Comment on above: Performed By: #### C BC #### [facility] [address] [place] [address] Dr. Jose Alves MCHC (RBC) [Mass/Vol] 34.2 g/dL Normal 29.9-35.2 [facility] Comment on above: Performed By: #### C BC #### [facility] [address] [place] [address] Dr. Jose Alves MCV (RBC) [Entitic vol] 98.0 fL Critically high 80.0-94.0 [facility] Comment on above: Performed By: #### C BC #### [facility] [address] [place] [address] Dr. Jose Alves MONO # 0.5 103/ul Normal 0.3-0.8 [facility] Comment on above: Performed By: #### C BC #### [facility] [address] [place] [address] Dr. Jose Alves Monocytes/100 WBC (Bld) 8.9 % Normal 1.7-12.0 [facility] Comment on above: Performed By: #### C BC #### [facility] [address] [place] [address] Dr. Jose Alves NEUT # 2.6 103/ul Normal 1.4-6.5 [facility] Comment on above: Performed By: #### C BC #### [facility] [address] [place] [address] Dr. Jose Alves Neutrophils/100 WBC (Bld) 47.7 % Normal 43.0-75.0 [facility] Comment on above: Performed By: #### C BC #### [facility] [address] [place] [address] Dr. Jose Alves Platelet mean volume (Bld) [Entitic vol] 9.9 fL Normal 9.5-13.5 [facility] Comment on above: Performed By: #### C BC #### [facility] [address] [place] [address] Dr. Jose Alves PLT 201 103/ul Normal 150-450 [facility] Comment on above: Performed By: #### C BC #### [facility] [address] [place] [address] Dr. Jose Alves RBC 4.51 106/ul Critically low 4.70-6.10 [facility] Comment on above: Performed By: #### C BC #### [facility] [address] [place] [address] Dr. Jose Alves WBC 5.4 103/ul Normal 4.0-11.0 [facility] Comment on above: Performed By: #### C BC #### [facility] [address] [place] [address] Dr. Jose Alves MICROALBUMIN, RAND URon mALB 2.1 mg/L Normal <=30.0 [facility] Comment on above: Performed By: #### M ALBR #### [facility] [address] [place] [address] Dr. Jose Alves PROF CHEM 8 (BAS METB)on Anion gap [Moles/Vol] 12.5 mmol/L Normal [facility] Comment on above: Performed By: #### B MP #### [facility] [address] [place] [address] Dr. Jose Alves Calcium [Mass/Vol] 8.9 mg/dL Normal 8.4-10.2 [facility] Comment on above: Performed By: #### B MP #### [facility] [address] [place] [address] Dr. Jose Alves Chloride [Moles/Vol] 105 mmol/L Normal 98-107 [facility] Comment on above: Performed By: #### B MP #### [facility] [address] [place] [address] Dr. Jose Alves CO2 [Moles/Vol] 29.1 mmol/L Normal 22.0-30.0 [facility] Comment on above: Performed By: #### B MP #### [facility] [address] [place] [address] Dr. Jose Alves Creatinine [Mass/Vol] 1.13 mg/dL Normal 0.66-1.25 [facility] Comment on above: Performed By: #### B MP #### [facility] [address] [place] [address] Dr. Jose Alves EGFR-AF CHADIAN >60 Normal >=60 [facility] Comment on above: Performed By: #### B MP #### [facility] [address] [place] [address] Dr. Jose Alves EGFR-NON AF CHADIAN >60 Normal >=60 [facility] Comment on above: Performed By: #### B MP #### [facility] [address] [address] [address] Jose Alves Glucose [Mass/Vol] 100 mg/dL Normal 74-106 [facility] Comment on above: Performed By: #### B MP #### [facility] [address] [address] [address] Jose Alves Potassium [Moles/Vol] 4.6 mmol/L Normal 3.4-5.0 [facility] Comment on above: Performed By: #### B MP #### [facility] [address] [address] [address] Jose Alves Sodium [Moles/Vol] 142 mmol/L Normal 137-145 [facility] Comment on above: Performed By: #### B MP #### [facility] [address] [address] [address] Jose Alves Urea nitrogen [Mass/Vol] 22.0 mg/dL Critically high 9.0-20.0 [facility] Comment on above: Performed By: #### B MP #### [facility] [address] [address] [address] Jose Alves Urea nitrogen/Creatinine [Mass ratio] 19.5 mg/mg Normal [facility] Comment on above: Performed By: #### B MP #### [facility] [address] [address] [address] Jose Alves Vital Signs Date Time Vital Sign Value Performing Clinician Facility 01-12-2024 08: Body height 171.45 cm [facility] 01-12-2024 08: Body mass index (BMI) [Ratio] 23.7 kg/m2 [facility] 01-12-2024 08: Body weight 69.85 kg [facility] 01-12-2024 08: Diastolic blood pressure 76 mm[Hg] [facility] 01-12-2024 08: Heart rate 55 /min [facility] 01-12-2024 08:27-0400 Systolic blood pressure 179 mm[Hg] [facility] 07-07-2023 08:30-0500 Body height 171.45 cm Bee Cutler Other [employer] [facility] Other 07-07-2023 08:30-0500 Body mass index (BMI) [Ratio] 24.84 kg/m2 Bee Cutler Other [employer] [facility] Other 07-07-2023 08:30-0500 Body weight 73.03 kg Bee Cutler Other [facility] [facility] Other 07-07-2023 08:30-0500 Diastolic blood pressure 80 mm[Hg] Bee Cutler Other [facility] [facility] Other 07-07-2023 08:30-0500 Systolic blood pressure 160 mm[Hg] Bee Cutler Other [facility] [facility] Other 01-02-2023 08:30-0400 Body height 171.45 cm Bee Cutler Other [facility] [employer] [facility] Other 01-02-2023 08:30-0400 Body mass index (BMI) [Ratio] 24.38 kg/m2 Bee Cutler Other [facility] [employer] [facility] Other 01-02-2023 08:30-0400 Body weight 71.67 kg Bee Cutler Other [facility] [facility] Other 01-02-2023 08:30-0400 Diastolic blood pressure 74 mm[Hg] Bee Cutler Other [facility] [employer] [facility] Other 01-02-2023 08:30-0400 Systolic blood pressure 142 mm[Hg] Bee Cutler Other [facility] [facility] Other 12-05-2022 09:15-0400 Body height 171.45 cm Bee Cutler Other [facility] [employer] [facility] Other 12-05-2022 09:15-0400 Body mass index (BMI) [Ratio] 24.07 kg/m2 Bee Cutler Other [facility] [employer] [facility] Other 12-05-2022 09:15-0400 Body weight 70.76 kg Bee Cutler Other [facility] [employer] [facility] Other 12-05-2022 09:15-0400 Diastolic blood pressure 78 mm[Hg] Bee Cutler Other [facility] [facility] Other 12-05-2022 09:15-0400 Systolic blood pressure 159 mm[Hg] Bee Cutler Other [facility] [facility] Other Encounters Encounter Date Encounter Type Care Provider Facility Start: 01-12-2024 End: 01-12-2024 ambulatory [facility] Work Phone: Start: 01-12-2024 End: 01-12-2024 Patient encounter procedure [facility] Work Phone: Start: 07-07-2023 End: 07-07-2023 ambulatory Bee Cutler Other [employer] [facility] Other Start: 07-07-2023 Office outpatient vi sit 15 minutes Bee Cutler [facility] Start: 01-02-2023 End: 01-02-2023 ambulatory Bee Cutler Other [facility] [facility] Other Start: 01-02-2023 Office outpatient vi sit 15 minutes Bee Cutler [facility] Start: 12-05-2022 End: 12-05-2022 ambulatory Bee Cutler Other [facility] [facility] Other Start: 12-05-2022 Office outpatient vi sit 15 minutes Bee Cutler [facility] Start: 09-19-2022 End: 09-19-2022 ambulatory Bee Cutlre Other [employer] [facility] Other Start: 09-19-2022 Telephone encounter Bee Cutler [facility] Start: 01-19-[address] BEE CUTLER Facil ity:[facility]1 Start: 01-04-2022 End: 01-05-[address] BEE CUTLER Facility:[facility] Start: 06-21-2021 End: 06-22-[address] BEE CUTLER Facility:[facility] Start: 05-24-2021 End: 05-25-[address] BEE CUTLER Facility:[facility] Plan of Treatment Date Care Activity Detail Author Comprehensive metabo lic 1999 panel - Serum or Plasma [facility] enter XR Chest 2 Views [facility] Immunizations Immunization Date Immunization Notes Care Provider Fa cility 03-23-2021 influenza virus vaccine, split virus (incl. purified surface antigen) Bee Cutler Other [employer] [facility] Other 03-23-2021 influenza virus vaccine, unspecified formulation [facility] 03-24-2020 influenza virus vaccine, split virus (incl. purified surface antigen) Bee Cutler Other [facility] [employer] Other 03-24-2020 influenza virus vaccine, unspecified formulation [facility] Payers Date Payer Category Payer Self-pay 1960 Unknown [id number] 1945 Unknown [id number] 2.16.84 [id number] 1945 Unknown [id number] 2.16.84 [id number] 1945 Unknown [id number] 2.16.84 [id number] 1945 Unknown [id number] [id number] [id number] Medicare [id number] 2.1 [id number] Social History Date Type Detail Facility Sex Assigned At [employer] [facility] Other Start: 09-11-2023 Tobacco smoking stat us NHIS Ex-smoker (finding) [facility] Start: 1945 Sex Assigned At Male F [facility] Evaluation note 07-07-2023 Note Date & [...] medication with food to prevent stomach upset. [facility] Other Evaluation note 01-02-2023 Note Date & [...] and followup at their office in January. [employer] Other Evaluation note 12-05-2022 Note Date & Type Note Facility 12-05-2022 Evaluation note Encounter Date Diagnosis Assessment Notes Nov, Plantar fasciitis, left (ICD-10 - M72.2) Pt already taking aleve. Agrees to referral to Podiatry, requests Dr. Rushing. [facility] [facility] Other Evaluation note 09-19-2022 Note Date & Type Note Facility 09-19-2022 Evaluation note Encounter Date Diagnosis Assessment Notes Sep, Essential (primary) hypertension (ICD-10 - I10) [employer] [facility] Other Clinical Note 05-25-2021 Note Date & [...] by: CLARISSA WEEMS Date: 2021-05-25 07:15 [facility] Evaluation note Note Date & Type Note Facility Evaluation note Diagnosis Onset Date Chronic cough acute HTN (hypertension) [facility] Work Phone: History general Narrative - [...] History rotator cuff repair left should er [employer] Other Summary Purpose Family History Relationship Condition Age at Onset Recorded Date/T teodoro brother Unknown Malignant neoplasm Unknown father Unknown mother Unknown Advance Directives Advance Directive Response Recorded Date/ Time Advance Directives No July 07, 2023 11:06am Reason for Referral Reason *FU 12/13 L planta r fasciitis Diagnosis 1 Plantar fasciitis, l eft (M72.2) Referral Organization [facility] Nasreen berger Referring Provider First Name Bee Referring Provider Last Name Philly Referring Provider Specialty Family [facility] Referred Organization [facility] Referred Provider Tato Rushing Referred Address [address] [place], [place],[address] Referred Provider Specialty Podiatry - S urgical [...] content) DATE CREATED AUTHOR 08/03/2021 [facility] DATE CREATED AUTHOR AUTHOR'S ORGANLENORA ATION 01/19/2022 [facility] REASON FOR VISIT (unrecogniz ed [...] BE BASED ON THE PRIMARY CLINICAL RECORDS. [facility] [employer] [facility]. provides no warranty or guarantee of the accuracy or completeness of information in this document.
== END 2024-03-29 08:15 | disposition home or self-care (01) ==
LOC: EC 08:14
PROVIDERS: PCP Family Medicine; Visit Provider Orthopaedic Surgery
DX: M25.551 Pain in right hip (principal); M16.0 Bilateral primary osteoarthritis of hip
CPT/HCPCS: 73502

== ENCOUNTER 2024-04-02 09:25 | Outpatient (RCR) | payer MEDICARE, SELFPAY | END 2024-04-28 16:10 | disposition home or self-care (01) | LOC: PT 09:25 | PROVIDERS: PCP Family Medicine; Visit Provider Orthopaedic Surgery | DX: M54.50 Low back pain, unspecified (principal) | CPT/HCPCS: 97010; 97035; 97110; 97140; 97161; G0283 ==

== ENCOUNTER 2024-04-30 17:43 | Emergency (ER) | payer MEDICARE, SELFPAY ==
--- OUTSIDE RECORDS SUMMARY | 2024-04-30 17:49 | XMS_ITS | CCD ---
Author Organization [facility] Care Team Providers Care Facilities Maintenance Worker Name Role Phone DR BEE CUTLER Primary [...] RUSHING Attending Unavailable TATO RUSHING Admitting Unavailable ODEM, DR CLARISSA [employer] Unavailable TATO RUSHING [...] CLARISSA NOVAK Date: 2022-01-04 08:32 Normal [facility] Coding Summary.on 08-02-2021 Coding Summary. [id number] G h0bWw+PGhlYWQ+ZO6DYRK vK70gyZVabZ5SG2wRUH3M GIBRHUGGCA0UKI9xgFC7V JywC9FzygDu VopidKJzAZ17YSm7MIM2n OigVVikxD4nyJOvO7q5Fy MaUF47mL66DFtoVEPkAqC 3LjZpbjsgbWFy P0gaCfXzpLBjFoz+PHRhY mxlIHdpZHRoPScxMDAlJy JucVlqHM5tGp7tGPPzYZA vbGxhcHNlOiBj y9ffUTDlPNfqXN4smNveV 4OrsVC7RFTyf3l4Dk43lR I+QXZlXWX8hGjxXApgb38 0JyEkw7ltFGV5 bWOhQZawEON7E17qf1W2V VKtMFJxKIV7eVK7lY8wuS jjpropW2MbqIIbSgS8MON 4wVUltQ9xqHtp yraqaW6eDel+N58DGH3TG HIQCG7LIfg1H1ZvVaqzpT I+TO64KFUmKS63dRBpcOC og8oznPv9HbDk QHJyOBZ9gCiuJKjqg0EkQ BXuE29svLNfq3K2IWMjqJ wpyZIvSxSloNC6oD4jFSl topsna0fmgxvk Tfglz5edjv74yS40A36nQ ErcTPKqJLF9NYEhCXRzdM qahg1hhE1hPm3+XPbof5p ur3rslEv6QgHx THEhztJdjIvvUKA9q1GoU u17E6PyjLqmj9WgWcl2ko 81uLNnh0D0zST2NBsgGZT vbB2uOBxmQkF2 RZKjYuJfpK79zQFdLCmgQ m0ryBwsmZuyDT3hONLjuf edHTOsrF7lJORbmPNjoGj tAA5pWYBnjdvq s982FzWyNYK3JPNvfASdP 0OznN9fWtItPJRaPYNlV2 QeeQRiMOgjN302DKgnDuD 1XQCjduVeZ9Im UJThrXpnOcN3m1J9At7Ld 2LjenbwFOK3NVpuIXXwXm P9PfDkBiR4E8MqJqc3IOS jeKjbLR7gC5Yi HWTgcxalliepkNZ8XZQkH HUphY41sPRvNXkdRs5ez7 P2w047ODXgVLIyaN40Cd7 udDogMTBwdCBU yE9prmnvq2vcspwfEvRuU CRpFVs2DCl2ZVLqmMpoXm WdMXC8QlX9FXA2yGSzoD6 itEmcroiteH8b Oyc+Z92qbP4tCUZ3AJC1l detNNAjnxMqAK09CC09B2 RyPjwvdGFibGU+PGRpdiB omNjyAW9pWpQd o4rqw4IxGDdiE4MoYTBaI MueKxm0SUGuPQY3vCL7xC 0lLPZvPDdfs1M6iPW8C1I vrwHoqy7jl1sd CTFtFYlvP14afWLcu8C1L COycEQ5JXWrjDmsEhWywH 93Oyc+IZZtiCzgo1ZdPlu ht2cye3uuyVe8 EaYbNSZbrpDvjEyxBSH0j 9DaCg51Q98dJGwkZGRhWY TiWGQpWYKzhPcigw6koS3 wIi8+PGNvbCB3 xJO4xD2gYVJbAgE9FXreR 548UpJqyZSaOgqgh6mle0 tbjYj3BgGvOTLjcdKqiFz aJDY1s7PkBs34 V69dOYotTFCfUZNrSXYhO KKrhViazu5teJ2pGw0+PC 6se7zydu55kQ83aXC+PHR iFEP9wNgcECof MHCdxB7lVWrrNiQ9PFEuV iFleV70iXGaYEylOb0luL zccEboKG2lAPYanjftx19 4YjFft3ytDQQd cPMpIObpARC6H78kx1A1W NEeRHMoVRU1qKK3bQ1gaM lnbjogbGVmdDsgdmVydGl iAGniPNfpU626 IHRvcDsnPlBhdGllbnQgT uCdZSu4M2UiOvq9GTNybH eeQB7ncBYgNWqtSc4ydYt cpDrdPE5tRJGy jrlzl619PtPuu3xyDJWyg KAdMAeoNMO6G63sg4V4FX HhQQLyTSW3iNW9vY9vxTl nbjogbGVmdDsg lhRgpVaiOShhFApbR563B HRvcDsnPkJpcnRoIERhdG C9JY90KE14oRDyg7V6rGS 2S2UiQITlxzbm fumwnEV8GJWxUSIcuK34U j5nbRcfTm2eYMCnIAU3RP WxhOKkV2SeqG5tXnWxLLD lQFThU8JiqHLi AXzrM204BSpaTiB0MFLxt lUlU3McYQEjsMchPoQ0o5 D9Td6FX6V1PO48PE87vRS qd3Z6wXL4C5Bt KOWurpjrxcjepXT8YLBgA YJfjW38Qt4zzZnfZq7pXI LnODQ1BLOayNAeN6BhfI0 yOiAjMDAwMDAw K0VmgCHhXLsuW162AJoiY nN9BEJyzrWyN4VpITOnmI fjNbV1g4K7Sj3GOPw6BH9 9LL49zTDfn9O8 qQZ4S6RjJDRdvzuapjgtt ML5VNTzWCHgfJ96Mv2qaE coQy2kCXJeMKL3UMXwxMT eR3RgmJ4xMzAd JAHnZVPkM3LksIZrQQigG 779MZtmPjE1RGJzbeFhU2 YbWMGzjIbrLbI5u7Z7Sz7 MULRzDJ75BEK1 rPP7YO64CI72A1IhMcubj GFibGU+PHRhYmxlIHdpZH RoPScxMDAlJyBzdHlsZT0 eHv8hLZZgRTLe mZsnuTRuWvWqi5htIBYhL JqrVS3bkFykP6PiaNK7WV Yij9m0Dt80X88uW7SpvHO +TSLenQN8aCR1 oH6uDcPfSdW3PZnfP657J gFvcJNwKxqpc3jcg2nbtN b2DyF2NTYwyuIhzQwoYST 6u6UiZj77M80p IHdpZHRoPSIxNSUiIHZhb Kagci4lzZ4rQb8+PGNvbC R5wXJ3iC9oHfIqXqO6EQv kA963WkXaeBNr Zssfi3yhs8xaeGf1FuPbT HAkogCkhZanDTU3n7XcDz 57H1MgpTofi8FlMgn1eo2 4aOXbn4U5pJR6 L7TjYRGfareusQLurQghP W5nZXVyyvpnDXEdrW6iGS UyS8m9MeChSoE2MQlfX7B arjA0HHWorPMt YAiwFZQ5O66az9C3LDDeY DLiPML4eLP5wP8xcCbpse ogbGVmdDsgdmVydGljYWw yGDjjX976GJAp jLsdDOUhhV7cZFPmuAVsw QvcZA7nLWNsweswIqPQBT oUEMpaHUnDP1WDXVYVRO5 3OB57uMEkd0K3 cAA8C4JzXAUlxmrgysbkj KH9FCPaGUGwuB97fKLjTH jrHz2ba1V8f014CQGtDEC woL51Vv4wyBvg SKArsEQOaY8oyixeh1bkc gspTuYxMRZbJRv8CBe5ZO GfnCirGrDzYSP1VmQ8WNA 3nZSpzQ5xvGns kuawfQ5oIbc+MTIvMjYvM Jp2GXgegQG+MBXrSCJ5bA ssCRnwMCBcqA0zOKYvG2d 9PwOxTbE5IGrw C7FzGDRdheguNx70fE2oE zZoDgR8EAkoJ4QmgiN5GY PpeAMdUEigMRU6E10ka2P 9QEJmMFTfPTB4 xAP4gU0vcXfiegoecWKkw DsgdmVydGljYWwtYWxpZ2 67MHJtrBvjFqh5FHsuDYK gUR73UX39yMEh w6F4mGF0V6QfYQEdpnwkb rvliNR2LSVzEEUwdT79rD IsKGerPy3ow8Y9d180JTR xCRNlvN19Uv1e tVivNIZdnZPTiC3ojddpn 0kxkifgFwOpKVWiXEj1XL p5TTBwsJjaGxTnDEH8RjA 3SOK5hSHkfJ8e wDsseptjlQ9uGlt+TWFsZ TwvdGQ+OFWnTRA9nWjdPS rxQVVbeT7zBKHrB6n0ChJ zRzW4KMcaH6Td TDOmyhysEg49hH6rNfTrB rV1AChyR6LrypA4XDOdsR AhJIjoIJQ7R99lm9L0VMH jQJEdJML2zQY9 hX1wrZftmmlhqIEirZohc oAelCztIBrsAMcwL224OL NojHgcCygfLcUXnj4lEY9 mZjwvdGQ+PC90 dj75J8NlDwuzHwe6KOUeU XO1sZV2vO8nXXQlNNkqc1 V5fSS7S3PnprDpjc3zd5y qJMKrJYysA15d iOOsb4V6OQUftTO2TZNnw MboOaKisA11Vhj+PGNvbG ytv2ZiHvgsp6dpp7djjXf 9IjMwJSIgdmFs hZchBGL3k1DfPx63X30fW HdpZHRoPSIzMCUiIHZhbG cqmk4mxD2vYt6+PGNvbCB 9xDD2iK7jQqOf HoQ9HSnnB558BnJpaLFsA tbqx3bwc7sowFo3UuMmUX CkbsCylCjeSRE8v3KvXo6 7F4NreHklu5Cg Tjo6dt96sNTqj1E9wKV8X 3BhZGRpbmctbGVmdDogMC 5eIXXrhuueBHJozE5dWHP dE1j3YwLrIiK8 NOfdQ7TlfsW4ZDMsyVJzQ VDwlLPJmK4ficjbz7yctz mjVkCzYNXgNIu4CJt8WZM saWduOiBsZWZ0 OpO3VLL2xPWnrL2zjHqkl qpiqI2uMbc+PKv9h1kubC ClXD9rjEC9MM97AM00nFS js3S7fXO2M3Ic RZMlgacpzrtugRH3NAQfH OFdiG41Yr7pjWtoPs6yIV GeNIC7NGIkcIJkT2InxI4 yOiAjMDAwMDAw I2NtzBXmMKjdU261AWthA pP6NTNvfpGhH0HlGJQnmT qmBfC7g6U0Qo6YVP35UF2 1GZ32wSVvj1I3 xQW0K7DxIJTajjpdphwnt JR3NVNeYRDpfK34So6gqE ldUz0aQEDqBBF1IGDieSV lZ3BrjZ6kHmRx VTNnGNXzS6ShrXFcXLjbW 665RAhxSvM8GFCyiwLlZ5 GxFAUzsFsbCmN1g7B4Pj1 MUh33OQ28XF53 kOAiv8B3lUE1F4OfYHBkx tzojsimcDL0KPLtHTKrnO 19Sg6jlGseHj2qEVQzSUR 3BEMimAVtK3Qk pX6fLoSqNEUyVAZfT5Nje IVoALxtT683OPxaVjH6HL EpeqRkC0AfUWZrtMchIjT 6a3L7Yy7JMDud hjq2I3FzQprnmPN+PC90Y FCrQQ47tYJtdEUua4vrkB q5EfHbDTDhUDP0bLdnDAw gr2CmVUBiX22e bGFw (more content not included)... Normal [facility] Physician Orderon 07-27-2021 Physician Order [id number] Normal [facility] PSA SCREENING LABCORPon Prostate specific Ag [Mass/Vol] 2.4 ng/mL Normal 0.0-4.[address] [facility] Comment on above: Result Comment: Sana NUÑEZ methodology. . According to the [place], Serum PSA should decrease and [...] disease. Performed By: #### P SASCLC #### [facility] [address] [place] [address] Dr. Jose Alves CBC AUTO DIFFon 06-21-2021 BASO # 0.0 103/ul Normal 0.0-0.[address] [facility] Comment on above: Performed By: #### C BC #### [facility] [address] [place] [address] Dr. Jose Alves Basophils/100 WBC (Bld) 0.4 % Normal 0.2-2.[address] [facility] Comment on above: Performed By: #### C BC #### [facility] [address] [place] [address] Dr. Jose Alves EO # 0.1 103/ul Normal 0.0-0.[address] [facility] Comment on above: Performed By: #### C BC #### [facility] [address] [address] [address] Jose Alves Eosinophils/100 WBC (Bld) 2.6 % Normal 0.9-7.[address] [facility] Comment on above: Performed By: #### C BC #### [facility] [address] [place] [address] Dr. Jose Alves Erythrocyte distribution width (RBC) [Ratio] 12.6 % Normal 11.0-15.[address] [facility] Comment on above: Performed By: #### C BC #### [facility] [address] [place] [address] Dr. Jose Alves Hematocrit (Bld) [Volume fraction] 44.2 % Normal 42.0-54.[address] [facility] Comment on above: Performed By: #### C BC #### [facility] [address] [place] [address] Dr. Jose Alves Hemoglobin (Bld) [Mass/Vol] 15.1 g/dL Normal 14.0-18.0 [facility] Comment on above: Performed By: #### C BC #### [facility] [address] [place] [address] Dr. Jose Alves IG # 0.01 10e3/ul Normal 0.00-0.03 [facility] Comment on above: Performed By: #### C BC #### [facility] [address] [place] [address] Dr. Jose Alves IG % 0.2 % Normal 0.0-0.5 [facility] Comment on above: Performed By: #### C BC #### [facility] [address] [place] [address] Dr. Jose Alves LYMPH # 2.2 103/ul Normal 1.2-3.[address] [facility] Comment on above: Performed By: #### C BC #### [facility] [address] [place] [address] Dr. Jose Alves Lymphocytes/100 WBC (Bld) 40.2 % Normal 20.5-60.0 [facility] Comment on above: Performed By: #### C BC #### [facility] [address] [place] [address] Dr. Jose Alves MANUAL DIFF REQ NO Normal [facility] Comment on above: Performed By: #### C BC #### [facility] [address] [place] [address] Dr. Jose Alves MCH (RBC) [Entitic mass] 33.5 pg Normal 25.9-34.[address] [facility] Comment on above: Performed By: #### C BC #### [facility] [address] [place] [address] Dr. Jose Alves MCHC (RBC) [Mass/Vol] 34.2 g/dL Normal 29.9-35.[address] [facility] Comment on above: Performed By: #### C BC #### [facility] [address] [place] [address] Dr. Jose Alves MCV (RBC) [Entitic vol] 98.0 fL Critically high 80.0-94.0 [facility] Comment on above: Performed By: #### C BC #### [facility] [address] [place] [address] Dr. Jose Alves MONO # 0.5 103/ul Normal 0.3-0.8 [facility] Comment on above: Performed By: #### C BC #### [facility] [address] [place] [address] Dr. Jose Alves Monocytes/100 WBC (Bld) 8.9 % Normal 1.7-12.0 [facility] Comment on above: Performed By: #### C BC #### [facility] [address] [place] [address] Dr. Jose Alves NEUT # 2.6 103/ul Normal 1.4-6.5 [facility] Comment on above: Performed By: #### C BC #### [facility] [address] [place] [address] Dr. Jose Alves Neutrophils/100 WBC (Bld) 47.7 % Normal 43.0-75.0 [facility] Comment on above: Performed By: #### C BC #### [facility] [address] [place] [address] Dr. Jose Alves Platelet mean volume (Bld) [Entitic vol] 9.9 fL Normal 9.5-13.[address] [facility] Comment on above: Performed By: #### C BC #### [facility] [address] [place] [address] Dr. Jose Alves PLT 201 103/ul Normal 150-[address] [facility] Comment on above: Performed By: #### C BC #### [facility] [address] [place] [address] Dr. Jose Alves RBC 4.51 106/ul Critically low 4.70-6.10 [facility] Comment on above: Performed By: #### C BC #### [facility] [address] [place] [address] Dr. Jose Alves WBC 5.4 103/ul Normal 4.0-11.0 [facility] Comment on above: Performed By: #### C BC #### [facility] [address] [place] [address] Dr. Jose Alves MICROALBUMIN, RAND URon mALB 2.1 mg/L Normal <=30.0 [facility] Comment on above: Performed By: #### M ALBR #### [facility] [address] [place] [address] Dr. Jose Alves PROF CHEM 8 (BAS METB)on Anion gap [Moles/Vol] 12.5 mmol/L Normal [facility] Comment on above: Performed By: #### B MP #### [facility] [address] [place] [address] Dr. Jose Alves Calcium [Mass/Vol] 8.9 mg/dL Normal 8.4-10.2 [facility] Comment on above: Performed By: #### B MP #### [facility] [address] [place] [address] Dr. Jose Alves Chloride [Moles/Vol] 105 mmol/L Normal 98-[address] [facility] Comment on above: Performed By: #### B MP #### [facility] [address] [place] [address] Dr. Jose Alves CO2 [Moles/Vol] 29.1 mmol/L Normal 22.0-30.0 [facility] Comment on above: Performed By: #### B MP #### [facility] [address] [place] [address] Dr. Jose Alves Creatinine [Mass/Vol] 1.13 mg/dL Normal 0.66-1.[address] [facility] Comment on above: Performed By: #### B MP #### [facility] [address] [place] [address] Dr. Jose Alves EGFR-AF PAPUA [place] >60 Normal >=60 [facility] Comment on above: Performed By: #### B MP #### [facility] [address] [place] [address] Dr. Jose Alves EGFR-NON AF PAP[place] >60 Normal >=60 [facility] Comment on above: Performed By: #### B MP #### [facility] [address] [address] [address] Jose Alves Glucose [Mass/Vol] 100 mg/dL Normal 74-106 [facility] Comment on above: Performed By: #### B MP #### [facility] [address] [address] [address] Jose Alves Potassium [Moles/Vol] 4.6 mmol/L Normal 3.4-5.0 [facility] Comment on above: Performed By: #### B MP #### [facility] [address] [address] [address] Jose Alves Sodium [Moles/Vol] 142 mmol/L Normal 137-145 [facility] Comment on above: Performed By: #### B MP #### [facility] [address] [address] [address] Jose Alves Urea nitrogen [Mass/Vol] 22.0 mg/dL Critically high 9.0-20.0 [facility] Comment on above: Performed By: #### B MP #### [facility] [address] [address] [address] Jose Alves Urea nitrogen/Creatinine [Mass ratio] 19.5 mg/mg Normal [facility] Comment on above: Performed By: #### B MP #### [facility] [address] [address] [address] Jose Alves Vital Signs Date Time Vital Sign Value Performing Clinician Facility 01-12-2024 08: Body height 171.45 cm [facility] 01-12-2024 08: Body mass index (BMI) [Ratio] 23.7 kg/m2 [facility] 01-12-2024 08: Body weight 69.85 kg [facility] 01-12-2024 08: Diastolic blood pressure 76 mm[Hg] [facility] 01-12-2024 08: Heart rate 55 /min [facility] 01-12-2024 08:27-0400 Systolic blood pressure 179 mm[Hg] [facility] 07-07-2023 08:30-0500 Body height 171.45 cm Bee Cutler Other [facility] Other 07-07-2023 08:30-0500 Body mass index (BMI) [Ratio] 24.84 kg/m2 Bee Cutler Other [facility] Other 07-07-2023 08:30-0500 Body weight 73.03 kg Bee Cutler Other [facility] Other 07-07-2023 08:30-0500 Diastolic blood pressure 80 mm[Hg] Bee Cutler Other [facility] Other 07-07-2023 08:30-0500 Systolic blood pressure 160 mm[Hg] Bee Cutler Other [facility] Other 01-02-2023 08:30-0400 Body height 171.45 cm Bee Cutler Other [facility] Other 01-02-2023 08:30-0400 Body mass index (BMI) [Ratio] 24.38 kg/m2 Bee Cutler Other [facility] Other 01-02-2023 08:30-0400 Body weight 71.67 kg Bee Cutler Other [facility] Other 01-02-2023 08:30-0400 Diastolic blood pressure 74 mm[Hg] Bee Cutler Other [facility] Other 01-02-2023 08:30-0400 Systolic blood pressure 142 mm[Hg] Bee Cutler Other [facility] Other 12-05-2022 09:15-0400 Body height 171.45 cm Bee Cutler Other [facility] Other 12-05-2022 09:15-0400 Body mass index (BMI) [Ratio] 24.07 kg/m2 Bee Cutler Other [facility] Other 12-05-2022 09:15-0400 Body weight 70.76 kg Bee Cutler Other [facility] Other 12-05-2022 09:15-0400 Diastolic blood pressure 78 mm[Hg] Bee Cutler Other [facility] Other 12-05-2022 09:15-0400 Systolic blood pressure 159 mm[Hg] Bee Cutler Other [facility] Other Encounters Encounter Date Encounter Type Care Provider Facility Start: 01-12-2024 End: 01-12-2024 ambulatory [facility] Work Phone: Start: 01-12-2024 End: 01-12-2024 Patient encounter procedure [facility] Work Phone: Start: 07-07-2023 End: 07-07-2023 ambulatory Bee Cutler Other [facility] Other Start: 07-07-2023 Office outpatient vi sit 15 minutes Bee Cutler [facility] Start: 01-02-2023 End: 01-02-2023 ambulatory Bee Cutler Other [facility] Other Start: 01-02-2023 Office outpatient vi sit 15 minutes Bee Cutler [facility] Start: 12-05-2022 End: 12-05-2022 ambulatory Bee Cutler Other [facility] Other Start: 12-05-2022 Office outpatient vi sit 15 minutes Bee Cutler [facility] Start: 09-19-2022 End: 09-19-2022 ambulatory Bee Cutler Other [facility] Other Start: 09-19-2022 Telephone encounter Bee Cutler [facility] Start: 01-19-[address] BEE CUTLER Facil ity:[facility]1 Start: 01-04-2022 End: 01-05-[address] BEE CUTLER Facility:[facility] Start: 06-21-2021 End: 06-22-[address] BEE CUTLER Facility:[facility] Start: 05-24-2021 End: 05-25-[address] BEE CUTLER Facility:[facility]1 Plan of Treatment Date Care Activity Detail Author Comprehensive metabo lic 1999 panel - Serum or Plasma [facility] enter XR Chest 2 Views [facility] Immunizations Immunization Date Immunization Notes Care Provider Fa cility 03-23-2021 influenza virus vaccine, split virus (incl. purified surface antigen) Bee Cutler Other [facility] Other 03-23-2021 influenza virus vaccine, unspecified formulation [facility] 03-24-2020 influenza virus vaccine, split virus (incl. purified surface antigen) Bee Cutler Other [facility] Other 03-24-2020 influenza virus vaccine, unspecified formulation [facility] Payers Date Payer Category Payer Self-pay 1960 Unknown [id number] 1945 Unknown [id number] 2.16.84 [id number] 1945 Unknown [id number] 2.16.84 [id number] 1945 Unknown [id number] 2.16.84 [id number] 1945 Unknown [id number] 2.16.84 [id number] Medicare [id number] 2.1 [id number] Social History Date Type Detail Facility Sex Assigned At [facility] Other Start: 09-11-2023 Tobacco smoking stat us NHIS Ex-smoker (finding) [facility] Start: 1945 Sex Assigned At Male F [facility] Evaluation note 07-07-2023 Note Date & Type [...] medication with food to prevent stomach upset. [facility] Other Evaluation note 01-02-2023 Note Date & [...] and followup at their office in January. [facility] Other Evaluation note 12-05-2022 Note Date & Type Note Facility 12-05-2022 Evaluation note Encounter Date Diagnosis Assessment Notes Nov, Plantar fasciitis, left (ICD-10 - M72.2) Pt already taking aleve. Agrees to referral to Podiatry, requests Dr. Rushing. [facility] Other Evaluation note 09-19-2022 Note Date & Type Note Facility 09-19-2022 Evaluation note Encounter Date Diagnosis Assessment Notes Sep, Essential (primary) hypertension (ICD-10 - I10) [facility] Other Clinical Note 05-25-2021 Note Date & [...] by: CLARISSA WEEMS Date: 2021-05-25 07:[address] [facility] Evaluation note Note Date & Type Note Facility Evaluation note Diagnosis Onset Date Chronic cough acute HTN (hypertension) [facility] Work Phone: History general Narrative - [...] History rotator cuff repair left should er [facility] Other Summary Purpose Family History Relationship Condition Age at Onset Recorded Date/T teodoro brother Unknown Malignant neoplasm Unknown father Unknown mother Unknown Advance Directives Advance Directive Response Recorded Date/ Time Advance Directives No July 07, 2023 11:06am Reason for Referral Reason *FU 12/13 L planta r fasciitis Diagnosis 1 Plantar fasciitis, l eft (M72.2) Referral Organization [facility] Nasreen berger Referring Provider First Name Bee Referring Provider Last Name Philly Referring Provider Specialty Family [facility] Referred Organization [facility] Referred Provider Tato Rushing Referred Address [address] [place], [place],[address] Referred Provider Specialty Podiatry - S urgical [...] content) DATE CREATED AUTHOR 08/03/2021 Marciano Stone [facility] DATE CREATED AUTHOR AUTHOR'S ORGANLENORA ATION [...] BE BASED ON THE PRIMARY CLINICAL RECORDS. [facility] [employer] [facility] provides no warranty or guarantee of the accuracy or completeness of information in this document.
[2024-04-30 17:52] VITALS: BP 170/80; PULSE 57; TEMP 36.7; O2SAT 97; BMI 22.8
[2024-04-30] MEDS: LIDOCAINE/EPINEPHRINE/TETRACAINE 3 ML GEL.PF.APP TOPICAL (18:15)
[2024-04-30] MEDS: LIDOCAINE HCL 1% 100 MG/10 ML MDV INJ (18:37)
--- NOTE | 2024-04-30 18:57 | ED.GENADUL1 ---
HPI HPI - General Adult General Chief complaint: Wound/Laceration Stated complaint: LACERATION Time Seen by Provider: 04/30/24 17:56 Source: patient Mode of arrival: walk-in Limitations: no limitations History of Present Illness HPI narrative: 78-year-old male presents here with chief complaint of a laceration to the left thumb. Patient is a superficial 2.5 cm laceration noted. No deep structure damage noted patient was cutting cardboard and accidentally cut his thumb. He is right-hand dominant laceration across the left thumb. Patient is up-to-date on tetanus immunization. Related Data Previous Rx's ?Medication ?Instructions ?Recorded cephalexin 500 mg capsule 500 mg PO BID 10 days #20 caps 04/30/24 Allergies Allergy/AdvReac Type Severity Reaction Status Date / Time No Known Drug Allergies Allergy Verified 04/30/24 17:52 Opioid HPI Opioid Management Most Recent Opioid Data: Last Pain Scale 3 04/30/24 18:20 04/30/24 Review of Systems ROS Narrative All Systems are negative except as noted/marked.All systems reviewed and otherwise negative PFSH PFSH Social History Little interest or pleasure in doing things: not at all Feeling down, depressed, or hopeless: not at all Exam Narrative Exam Narrative: Nurses note and vital signs reviewed and patient is not hypoxic. General: The patient appears well and in no apparent distress. Patient is resting comfortably on cart. Skin: Warm, dry, no pallor noted. There is no rash noted. Head: Normocephalic, atraumatic Eye: Normal conjunctiva, no drainage, EOMI. PERRL Ears, Nose, Mouth, and Throat: oral mucosa is moist. Nares patent. Mouth without vesicles. Ear canals patent. Tm's without Erythema Cardiovascular: Regular Rate and Rhythm Musculoskeletal: 2.5 cm laceration to left thumb , noted no deep structure damage no active bleeding the patient has no evidence of calf tenderness, no pitting edema, symmetrical pulses noted bilaterally Neurological: A&O x4, normal speech Psychiatric: Cooperative Constitutional Vital Signs, click to edit/add: Last Vital Signs Temp 98.1 F 04/30/24 17:52 Pulse 57 L 04/30/24 17:52 Resp 18 04/30/24 17:52 BP 170/80 H 04/30/24 17:52 Pulse Ox 97 04/30/24 17:52 O2 Del Method Room Air 04/30/24 17:52 Course Vital Signs Vital signs: Vital Signs Temperature 98.1 F 04/30/24 17:52 Pulse Rate 57 L 04/30/24 17:52 Respiratory Rate 18 04/30/24 17:52 Blood Pressure 170/80 H 04/30/24 17:52 Pulse Oximetry 97 04/30/24 17:52 Oxygen Delivery Method Room Air 04/30/24 17:52 Temperature 98.1 F 04/30/24 17:52 Pulse Rate 57 L 04/30/24 17:52 Respiratory Rate 18 04/30/24 17:52 Blood Pressure 170/80 H 04/30/24 17:52 Pulse Oximetry 97 04/30/24 17:52 Oxygen Delivery Method Room Air 04/30/24 17:52 Medical Decision Making MDM Narrative Medical decision making narrative: Patient presents here with chief complaint of a laceration to left thumb. Wound was anesthetized with let solution and 1% lidocaine solution locally. Cleaned irrigated with Hibiclens. Wound was then reapproximated with 4.0 Ethilon suture x 5 simple suture. Patient was given suture instructions. Patient will follow-up with primary care physician for suture removal. Medicate here with Keflex discharged home prescription of Keflex as well. Differential Diagnosis Differential Diagnosis: laceration Medical Records Medical records reviewed: Yes I reviewed the patient's medical records Discharge Plan Discharge Chief Complaint: Wound/Laceration Clinical Impression: Laceration Patient Disposition: Home, Self-Care Time of Disposition Decision: 18:56 Condition: Good Prescriptions / Home Meds: New cephalexin 500 mg capsule 500 mg PO BID 10 Days Qty: 20 0RF Print Language: Brazilian Instructions: Laceration (ED) Referrals: Bee Cutler MD [Primary Care Provider] - 1 week
[2024-04-30] MEDS: CEPHALEXIN 500 MG CAPSULE PO (19:09)
== END 2024-04-30 19:22 | disposition home or self-care (01) ==
PROVIDERS: Emergency Provider Emergency Medicine; PCP Family Medicine
DX: S61.012A Laceration without foreign body of left thumb without damage to nail, initial encounter (principal); W26.0XXA Contact with knife, initial encounter
CPT/HCPCS: 12001; 99284

== ENCOUNTER 2024-05-10 08:05 | Outpatient (OUT) | payer MEDICARE, SELFPAY ==
--- NOTE | 2024-05-10 | XR_ITS ---
[facility] [place] [address] Patient Name: ANNA DHILLON MRN: [id number] date: 1945 Sex: M Assigned Patient Location: Current Patient Location: Accession/Order Number: [id number] Exam Date: 05/10/2024 08:15 Report Date: 05/12/2024 14:27 At the request of: HATTIE OBREGON Procedure: XR lumbar spine min 4V EXAMINATION: XR lumbar spine min 4V HISTORY: LUMBAR SPINE PAIN COMPARISON: No relevant comparison available. FINDINGS: BONES: No fracture, significant spondylolisthesis, or bone lesion. No change in alignment during flexion and extension. Multilevel mild-moderate degenerative facet arthropathy. DISC SPACES: Moderate narrowing L2-3, L3-4. Mild narrowing L5-S1. PARASPINOUS: Negative. No paraspinous abnormality is seen. OTHER: Negative. XR/XR lumbar spine min 4V IMPRESSION: 1. Multilevel moderate degenerative changes of lumbar spine. Electronically authenticated by: HATTIE SCHAEFER Date: 05/12/2024 14:27
--- OUTSIDE RECORDS SUMMARY | 2024-05-10 08:24 | XMS_ITS | CCD ---
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 CD:[id number] G h0bWw+PGhlYWQ+KP2JSQI [id number] FTSJVFKLJF5KFZ4jgZG8L ZgxF3ZhauTw OvlndGCzCW37NXx7GUP7q TtnGUjxnH9lqRHfM1i0Lo RgIN31mN94VSkbDUFxDaD 3LjZpbjsgbWFy S7gxTsQonJEmZej+PHRhY mxlIHdpZHRoPScxMDAlJy HpiLveKY6lQt6xGSSfACT vbGxhcHNlOiBj t2ruUJEbWHfcRG2vyFmgF 8VxkRS1WHTol7k8Ww48tZ I+OASkLKY4pAxkHWnhc11 9SnIto6rlAPQ0 fTDjQLaaROZ7S52lg9I6T BYnDJDvVXO7gAG5sQ0ksB zmotrgH2AioLQgFsN9ZRP 5pJNinM1ziZnr adnfeP8vSef+P19VTU3XE UXCKF2BOks0R3DlWfpltC I+CB33BZQoMX14gUSolWD zz8vobHa0UhIh HIWnKCP7sHpmJOfsm0MsT GJqY17kuVCxq3T1AXImnX jbsYGaTvWnlSV1uM8vDCz ujgciy5yktdmg Rmghw7yvci95eY84V15lY RoqRGViYMD8RFJrMLBrgP riye6ktB9xHg9+XWswy9u rq4dhdSi2LxBf BPOionBazKsfSUR5i4LpU h44R5CpvYijj7JeZhx2nc 54cPAwu2P6pGP2FAnjCYF dvR5yLUjbMsO6 AKVmDxYneE08pVWtPQctF g7bvHsrsXeuQT8xKRJcoi wjMRWvdB0bJGLaiCIgvGj oVX8bTBNejgtp t786VhGmPHK9ABEgkGLfP 0PxnA0lFwIzNKHnPQTwU7 NfqCVzNGwsK098RQwwIbK 1PLYhekVuL7Bk GMSyzBmzDiE4e3R2Ar2Bg 5MfowucVWM5GWsgRQXlEf F0WzHbQpK8D8DsHax9GBB mgBsvHR9bF4Gp ONSitehdkgmtlZC9CFAzB WSzsP35rYNiCZcdPa0kv9 C2w110BJTzAWPhwP42De5 udDogMTBwdCBU uT9cqatzq8pllddrMiOmN RKdKSj3SSp8OCJicBilUp HgSCY8YyS6SIM8mXAysL5 exSsesmlbvE9t Oyc+S32ifD1eQMF3SDL1b rojAPRewoPsPJ61XD43B8 RyPjwvdGFibGU+PGRpdiB ywDewQF5vUdNe n1stm1TjMWwaE5GcJQEoI JsbRxl5YBBtAWT4sBZ5yG 4uXTItVOdcb3Q8aJU0O5J cgxVarr7ul3ok CFBhRMfgD03jgJJjz4A9Y PBtpVE4BQPrkWnqKdFsdP 93Oyc+RJKbtRilx8EyFdt zo3vsu6bivEi4 GbOkHRDtskOnnQneFJR6s 6JtWj90L80qRMvdDSYcKS XrCLEtRFOcwDytmh9glN9 wIi8+PGNvbCB3 eHG4gF3sHJHnSyL0DTgqE 024YuUouMMwTtcmu1pmt8 ujxWw8DaMuLCDujeYbwQt bHBW4j4AjXp50 S67wZZhoBSIzFWTjCVZiV EVyyIztdk0rqT3fYc6+PC 7gc9wvee43oP66vVW+PHR gNKH9eJcsZOpr USHfkC4bEYttLgV4CKPjC vVejO10zVAaGXzsGj4bkB qgxHfdTA0zHZBrtbjhk10 1NqSbj1vuBSVw rCCrKQliNJD3B53qn6A4U SZnSEGfVMQ1sWD0zX4wkF lnbjogbGVmdDsgdmVydGl hPKhgJKzkT458 IHRvcDsnPlBhdGllbnQgT yCfSZt5H9IaUkd5YIEhyO fsYT2dnKWdVKavNx8ncXo gfJwxZO7iYZXt lmrhh784CmVjf7wvSZKra YEyAXngALM7Y36wh2Z4ZI YaLKJsMWF5bSU2zU2zcTj nbjogbGVmdDsg giLcsOqnXMakOGldX239X HRvcDsnPkJpcnRoIERhdG O5EZ62AW59tDVfz2N3kNE 3Y8WqEAEotdqw vzjiwEN0QAFdMLVvcP02Y x4pvMvjYv2yXDOcVCU5YM HvvRJdX5XkcK9pQdWfRVF cQGCyL3WkwZAy QZnlJ976GQiiLbE8NFCdg vIuL0CoYNEdlVbeKnH4g4 A0Ss7FZ1N1UO51AP07xQW tn9E0zGO0Q1Fr YMVrguzfozhnvXU3JXHrL BHuyN35Mi8hkIjgBy2zJE BkGLJ1UZUafSWoK6QndK2 yOiAjMDAwMDAw G0DyeEIqHVmnC616DFbzJ jM4UFWbwuXdY6PjMHYvpN bpYiO3a8I6Aa5LICu9RX3 1IZ36iDEul1J3 iJK8F1BbZGQforrhmjzxi VE2LQBvPKBgqM63Fd4ypJ rnKx4iYIBdQCM2PLIsxKE pB8DpiF8qKnJn SAToCJFhW7DstJIdWEgqG 904LUivJnF2YZLiioFmV5 DoLSBiwNcqOhP7f4Z4Qf1 UXKMaBX28OCW9 tNF8CN72WU40M9YwZjsqr GFibGU+PHRhYmxlIHdpZH RoPScxMDAlJyBzdHlsZT0 nKk6rDNRbBKUw sFazcXKfZdYzv0fnOVPjI DqlHF7nfYgcF7WzyCL0YQ Xbj3p1Bq63V85uT7KdiXB +NPQirNT7eJK6 dC7sPcFbHbB8JEnoS774X tVtkURqEhiga8wze9xjnS f9EiC9GLQauzGrzDocBKG 4r9EpTt22K63q IHdpZHRoPSIxNSUiIHZhb Bmqzy5zbU5uRg2+PGNvbC Z5jSX9bC1cKoLmDuY4BQb nW856GcUkmDZo Exxle8pwf3flqFf5OiSiO UTwtkYtoFwfBUQ1k8YkCc 60Z3VnuGztr7CpCvo6nv3 4uKPgl5A9gYJ5 W1MzCWZnjpfcuGNfsIopT K1rURPvnmtlBBArkA7hSW GoB8a0EjDfVqZ3YQtoY2W dsoA7DRGmaZTj HGwtQNC2Z15dl7V7MBSrB KTeJWK9bXT5fX3mhUsxwv ogbGVmdDsgdmVydGljYWw pEWqsT786XZKi zRlnUJQuaA1cPRLbfBMht EbwNB2vZRWovoniPeCQNT fCWBmuCHqPH3OTNPBWOR5 3JG50mNEec8F1 gVM4T6OvJRMbsxjznbzsx JK8XNQpLVVbqR75rQGiQL gyXj1kb1B2c546EBRlHBB nzT27Ql2vvLcn ZDNhuSOOvI1hwndce7qki gbqOvXaTIJqQDo9UOh4MC QonQmtBeQyAOX8KbA5UOK 5iKKdeQ6xgWlp pnltbT8dSni+MTIvMjYvM Xh4NSbsdZW+EVRmUBF4tS gtNXajUXHntA4ySKViP6k 9ZfSsFeQ6AFrd B2AdLUVyvytxRg30yA8cM vReWfU8YGzcQ8TxovS6GC VsyETkOOcdTJU4D32vz1O 6TMDkNMGaBZW5 aTG8wN3ieQmetsxpeNBrf DsgdmVydGljYWwtYWxpZ2 05XIWniWtkEdp8NGyxVPZ tTD61ZW10aPOc q3A8dIV9T2SnPQWudmmmo wiwaEF5RNDwEJOkeK45cR IePRisQs0go9A7g226EBH kXKQieB23Qw8h qPvpUTZynYCInE8fyfqpn 7slveyfSmFkAGDpDCr3AY t1OMPfdCvtMsSiCUM9IsW 7OPN6rKHxnU8z zZpvnqtfhA3sRen+TWFsZ TwvdGQ+JOTzULX0fOwiUT vdQLTvwX6rQYQzQ4u0MdL vNnO9SQjpE3Nu XUCjmxvpYq46mG3nYoBjJ wL2ZKssG1UjgnO4ASLdeK SeLKtgKJQ3S10dv4R4XQY hJRJqFUX8lZN6 dY6umZwkmicxbNLsyXomw dOhrOubTRynUQsaJ979BS MbmVnhRoheUrHXuy2mIM7 mZjwvdGQ+PC90 zz92E8UxOyynXkg7VBOhY CH5gWE8tJ8lWJEfWHtji9 H9pTV4L9DobeHmqv8nh4k jVKPiAByyM87k eYMkr0W9CLNasBW1PCAqe GozYiVejA68Lkb+PGNvbG mpl3CiXyxjf7umh0iduFd 9IjMwJSIgdmFs gAkpNSC5w8LoHq96V10sR HdpZHRoPSIzMCUiIHZhbG kprg5mwE8rTx1+PGNvbCB 2eNW5kE3wTsOn QsY3ABcxV842WzUlfWYuE hgpa4fto1qhoJi8WpLxNY GokiHaeKhhEPM7j9XhCj0 2A2AplXcsf7Yh Yyt1ag81fZAwz0E9eIK3G 3BhZGRpbmctbGVmdDogMC 7eARBtoptzPPJiuZ2aYYD vI8x8KfTjDmH7 WNbqR0VghzI8ENGsnFUnB GAhmGAVrX8jiiyen4mwaq pgRrPsITAqTNp3BGn2TTC saWduOiBsZWZ0 QqY0VSN0jXUpsJ8meHvnl qfqkA5lZxh+IKn0r1ikvF HxFA0buSI9KB56FQ32cTD yq2I9jDI9E8Pn UVBfsooyjftdeTO7LLElC JNabJ86Mu2jmLawXb1lCF SnPKP2VIKkxWSuA6WrcF0 yOiAjMDAwMDAw Q2IxhBSeEYdsT836QMwsE iT1RNJqivHkD8BvLRDktV mpRoR3r6X0Bm7PDJ45DI4 6WH57uTIgg5I7 kZZ7T3RtTCQsbqymlbxpw AE8MSJhPKNolP04Rc1cqR beFo0oAGGuZVH0JKWnyUX aQ8DtpU6zVlKt NZQlGHTzI9EdmPNzPShnK 819VOjaUfA6LCNevpNpW4 AhWYAjcXbmMnU2v0Q4Yg9 YDr59TR64UT26 cNCji1F5jTT5E4ReYOUol civfgaysMG7AKJiRIJjxB 79Zt0imFtsYm4hBHLwEYJ 9QSSmlLJyO7Sz wN0aRvUdOJTjMBPnW9Bjq RFtSLbxK462YWahQfO1VB FbrsZoX3TjHLRuwBueRmG 1p9U9Yq4BOEik jbg5G0HkQyafjBS+PC90Y YRpOQ29iCWltKIco3jpfU t0CfSkSBVgCIZ5sFnuRJd ds6CaONDgI30i bGFw (more content not included)... Normal [facility] Physician Orderon 07-27-2021 Physician Order [id number] Normal [facility] PSA SCREENING LABCORPon Prostate specific Ag [Mass/Vol] 2.4 ng/mL Normal 0.0-4.0 [facility] Comment on above: Result Comment: Sana NUÑEZ methodology. . According to the [employer], Serum PSA should decrease and [...] disease. Performed By: #### P SASCLC #### [facility] [address] [place] [address] Dr. Jose Alves CBC AUTO DIFFon 06-21-2021 BASO # 0.0 103/ul Normal 0.0-0.1 [facility] Comment on above: Performed By: #### C BC #### [facility] [address] [place] [address] Dr. Jose Alves Basophils/100 WBC (Bld) 0.4 % Normal 0.2-2.0 [facility] Comment on above: Performed By: #### C BC #### [facility] [address] [place] [address] Dr. Jose Alves EO # 0.1 103/ul Normal 0.0-0.7 [facility] Comment on above: Performed By: #### C BC #### [facility] [address] [address] [address] Jose Alves Eosinophils/100 WBC (Bld) 2.6 % Normal 0.9-7.0 [facility] Comment on above: Performed By: #### C BC #### [facility] [address] [place] [address] Dr. Jose Alves Erythrocyte distribution width (RBC) [Ratio] 12.6 % Normal 11.0-15.0 [facility] Comment on above: Performed By: #### C BC #### [facility] [address] [place] [address] Dr. Jose Alves Hematocrit (Bld) [Volume fraction] 44.2 % Normal 42.0-54.0 [facility] Comment on above: Performed By: #### C BC #### [facility] [address] [place] [address] Dr. Jose Alves Hemoglobin (Bld) [Mass/Vol] 15.1 g/dL Normal 14.0-18.0 [facility] Comment on above: Performed By: #### C BC #### [facility] [address] [place] [address] Dr. Jose Alves IG # 0.01 10e3/ul Normal 0.00-0.03 [facility] Comment on above: Performed By: #### C BC #### [facility] [address] [place] [address] Dr. Jose Alves IG % 0.2 % Normal 0.0-0.5 [facility] Comment on above: Performed By: #### C BC #### [facility] [address] [place] [address] Dr. Jose Alves LYMPH # 2.2 103/ul Normal 1.2-3.8 [facility] Comment on above: Performed By: #### C BC #### [facility] [address] [place] [address] Dr. Jose Alves Lymphocytes/100 WBC (Bld) 40.2 % Normal 20.5-60.0 [facility] Comment on above: Performed By: #### C BC #### [facility] [address] [place] [address] Dr. Jose Alves MANUAL DIFF REQ NO Normal [facility] Comment on above: Performed By: #### C BC #### [facility] [address] [place] [address] Dr. Jose Alves MCH (RBC) [Entitic mass] 33.5 pg Normal 25.9-34.0 [facility] Comment on above: Performed By: #### C BC #### [facility] [address] [place] [address] Dr. Jose Alves MCHC (RBC) [Mass/Vol] 34.2 g/dL Normal 29.9-35.2 [facility] Comment on above: Performed By: #### C BC #### [facility] [address] [place] [address] Dr. Jose Alves MCV (RBC) [Entitic vol] 98.0 fL Critically high 80.0-94.0 [facility] Comment on above: Performed By: #### C BC #### [facility] [address] [place] [address] Dr. Jose Alves MONO # 0.5 103/ul Normal 0.3-0.8 [facility] Comment on above: Performed By: #### C BC #### [facility] [address] [place] [address] Dr. Jose Alves Monocytes/100 WBC (Bld) 8.9 % Normal 1.7-12.0 [facility] Comment on above: Performed By: #### C BC #### [facility] [address] [place] [address] Dr. Jose Alves NEUT # 2.6 103/ul Normal 1.4-6.5 [facility] Comment on above: Performed By: #### C BC #### [facility] [address] [place] [address] Dr. Jose Alves Neutrophils/100 WBC (Bld) 47.7 % Normal 43.0-75.0 [facility] Comment on above: Performed By: #### C BC #### [facility] [address] [place] [address] Dr. Jose Alves Platelet mean volume (Bld) [Entitic vol] 9.9 fL Normal 9.5-13.5 [facility] Comment on above: Performed By: #### C BC #### [facility] [address] [place] [address] Dr. Jose Alves PLT 201 103/ul Normal 150-450 [facility] Comment on above: Performed By: #### C BC #### [facility] [address] [place] [address] Dr. Jose Alves RBC 4.51 106/ul Critically low 4.70-6.10 [facility] Comment on above: Performed By: #### C BC #### [facility] [address] [place] [address] Dr. Jose Alves WBC 5.4 103/ul Normal 4.0-11.0 [facility] Comment on above: Performed By: #### C BC #### [facility] [address] [place] [address] Dr. Jose Alves MICROALBUMIN, RAND URon mALB 2.1 mg/L Normal <=30.0 [facility] Comment on above: Performed By: #### M ALBR #### [facility] [address] [place] [address] Dr. Jose Alves PROF CHEM 8 (BAS METB)on Anion gap [Moles/Vol] 12.5 mmol/L Normal [facility] Comment on above: Performed By: #### B MP #### [facility] [address] [place] [address] Dr. Jose Alves Calcium [Mass/Vol] 8.9 mg/dL Normal 8.4-10.2 [facility] Comment on above: Performed By: #### B MP #### [facility] [address] [place] [address] Dr. Jose Alves Chloride [Moles/Vol] 105 mmol/L Normal 98-107 [facility] Comment on above: Performed By: #### B MP #### [facility] [address] [place] [address] Dr. Jose Alves CO2 [Moles/Vol] 29.1 mmol/L Normal 22.0-30.[address] [facility] Comment on above: Performed By: #### B MP #### [facility] [address] [place] [address] Dr. Jose Alves Creatinine [Mass/Vol] 1.13 mg/dL Normal 0.66-1.25 [facility] Comment on above: Performed By: #### B MP #### [facility] [address] [place] [address] Dr. Jose Alves EGFR-AF CYMRAES >60 Normal >=[address] [facility] Comment on above: Performed By: #### B MP #### [facility] [address] [place] [address] Dr. Jose Alves EGFR-NON AF CYMRAES >60 Normal >=60 [facility] Comment on above: Performed By: #### B MP #### [facility] [address] [address] [address] Jose Alves Glucose [Mass/Vol] 100 mg/dL Normal 74-106 [facility] Comment on above: Performed By: #### B MP #### [facility] [address] [address] [address] Jose Alves Potassium [Moles/Vol] 4.6 mmol/L Normal 3.4-5.0 [facility] Comment on above: Performed By: #### B MP #### [facility] [address] [address] [address] Jose Alves Sodium [Moles/Vol] 142 mmol/L Normal 137-145 [facility] Comment on above: Performed By: #### B MP #### [facility] [address] [address] [address] Jose Alves Urea nitrogen [Mass/Vol] 22.0 mg/dL Critically high 9.0-20.0 [facility] Comment on above: Performed By: #### B MP #### [facility] [address] [address] [address] Jose Alves Urea nitrogen/Creatinine [Mass ratio] 19.5 mg/mg Normal [facility] Comment on above: Performed By: #### B MP #### [facility] [address] [address] [address] Jose Alves Vital Signs Date Time Vital Sign Value Performing Clinician Facility 01-12-2024 08: Body height 171.45 cm [facility] 01-12-2024 08: Body mass index (BMI) [Ratio] 23.7 kg/m2 [facility] 01-12-2024 08: Body weight 69.85 kg [facility] 01-12-2024 08: Diastolic blood pressure 76 mm[Hg] [facility] 01-12-2024 08: Heart rate 55 /min [facility] 01-12-2024 08:27-0400 Systolic blood pressure 179 mm[Hg] [facility] 07-07-2023 08:30-0500 Body height 171.45 cm Bee Cutler Other [facility] Other 07-07-2023 08:30-0500 Body mass index (BMI) [Ratio] 24.84 kg/m2 Bee Cutler Other [facility] Other 07-07-2023 08:30-0500 Body weight 73.03 kg Bee Cutler Other [facility] Other 07-07-2023 08:30-0500 Diastolic blood pressure 80 mm[Hg] Bee Cutler Other [facility] Other 07-07-2023 08:30-0500 Systolic blood pressure 160 mm[Hg] Bee Cutler Other [facility] Other 01-02-2023 08:30-0400 Body height 171.45 cm Bee Cutler Other [facility] Other 01-02-2023 08:30-0400 Body mass index (BMI) [Ratio] 24.38 kg/m2 Bee Cutler Other [facility] Other 01-02-2023 08:30-0400 Body weight 71.67 kg Bee Cutler Other [facility] Other 01-02-2023 08:30-0400 Diastolic blood pressure 74 mm[Hg] Bee Cutler Other [facility] Other 01-02-2023 08:30-0400 Systolic blood pressure 142 mm[Hg] Bee Cutler Other [facility] Other 12-05-2022 09:15-0400 Body height 171.45 cm Bee Cutler Other [facility] Other 12-05-2022 09:15-0400 Body mass index (BMI) [Ratio] 24.07 kg/m2 Bee Cutler Other [facility] Other 12-05-2022 09:15-0400 Body weight 70.76 kg Bee Cutler Other [facility] Other 12-05-2022 09:15-0400 Diastolic blood pressure 78 mm[Hg] Bee Cutler Other [facility] Other 12-05-2022 09:15-0400 Systolic blood pressure 159 mm[Hg] Bee Cutler Other [facility] Other Encounters Encounter Date Encounter Type Care Provider Facility Start: 01-12-2024 End: 01-12-[address] [facility] Work Phone: Start: 01-12-2024 End: 01-12-2024 Patient encounter procedure [facility] Work Phone: Start: 07-07-2023 End: 07-07-2023 ambulatory Bee Cutler Other [facility] Other Start: 07-07-2023 Office outpatient vi sit 15 minutes Bee Cutler [facility] Start: 01-02-2023 End: 01-02-2023 ambulatory Bee Cutler Other [facility] Other Start: 01-02-2023 Office outpatient vi sit 15 minutes Bee Cutler [facility] Start: 12-05-2022 End: 12-05-2022 ambulatory Bee Cutler Other [facility] Other Start: 12-05-2022 Office outpatient vi sit 15 minutes Bee Cutler [facility] Start: 09-19-2022 End: 09-19-2022 ambulatory Bee Cutler Other [employer] [facility] Other Start: 09-19-2022 Telephone encounter Bee Cutler [facility] Start: 01-19-[address] BEE CUTLER Facil ity:H1 Start: 01-04-2022 End: 01-05-[address] BEE CUTLER Facility:[facility] Start: 06-21-2021 End: 06-22-[address] BEE CUTLER Facility:[facility] Start: 05-24-2021 End: 05-25-[address] BEE CUTLER Facility:[facility]1 Plan of Treatment Date Care Activity Detail Author Comprehensive metabo lic 1999 panel - Serum or Plasma [facility] enter XR Chest 2 Views [facility] Immunizations Immunization Date Immunization Notes Care Provider Fa cility 03-23-2021 influenza virus vaccine, split virus (incl. purified surface antigen) Bee Cutler Other [employer] [facility] Other 03-23-2021 influenza virus vaccine, unspecified formulation [facility] 03-24-2020 influenza virus vaccine, split virus (incl. purified surface antigen) Bee Cutler Other [facility] Other 03-24-2020 influenza virus vaccine, unspecified formulation [facility] Payers Date Payer Category Payer Self-pay 1960 Unknown [id number] 1945 Unknown [id number] 2.16.84 [id number] 1945 Unknown [id number] 2.16.84 [id number] 1945 Unknown [id number] 2.16.84 [id number] 1945 Unknown [id number] 2.16.84 [id number] Medicare [id number] 2.1 [id number] Social History Date Type Detail Facility Sex Assigned At [facility] Other Start: 09-11-2023 Tobacco smoking stat us NHIS Ex-smoker (finding) [facility] Start: 1945 Sex Assigned At Male [facility] Evaluation note 07-07-2023 Note Date [...] medication with food to prevent stomach upset. [facility] Other Evaluation note 01-02-2023 Note Date & [...] and followup at their office in January. [facility] Other Evaluation note 12-05-2022 Note Date & Type Note Facility 12-05-2022 Evaluation note Encounter Date Diagnosis Assessment Notes Nov, Plantar fasciitis, left (ICD-10 - M72.2) Pt already taking aleve. Agrees to referral to Podiatry, requests Dr. Rushing. [facility] Other Evaluation note 09-19-2022 Note Date & Type Note Facility 09-19-2022 Evaluation note Encounter Date Diagnosis Assessment Notes Sep, Essential (primary) hypertension (ICD-10 - I10) [facility] Other Clinical Note 05-25-2021 Note Date & [...] by: CLARISSA WEEMS Date: 2021-05-25 07:15 [facility] Evaluation note Note Date & Type Note Facility Evaluation note Diagnosis Onset Date Chronic cough acute HTN (hypertension) [facility] Work Phone: History general Narrative - [...] History rotator cuff repair left should er [facility] Other Summary Purpose Family History Relationship Condition Age at Onset Recorded Date/T teodoro brother Unknown Malignant neoplasm Unknown father Unknown mother Unknown Advance Directives Advance Directive Response Recorded Date/ Time Advance Directives No July 07, 2023 11:06am Reason for Referral Reason *FU 12/13 L planta r fasciitis Diagnosis 1 Plantar fasciitis, l eft (M72.2) Referral Organization [facility] Nasreen berger Referring Provider First Name Bee Referring Provider Last Name Philly Referring Provider Specialty Family [facility] Referred Organization [facility] Referred Provider Tato Rushing Referred Address [address] [place], [place],[address] Referred Provider Specialty Podiatry - S urgical [...] content) DATE CREATED AUTHOR 08/03/2021 Marciano Stone [facility] DATE CREATED AUTHOR AUTHOR'S ORGANLENORA [...] BE BASED ON THE PRIMARY CLINICAL RECORDS. [facility]. provides no warranty or guarantee of the accuracy or completeness of information in this document.
== END 2024-05-10 08:06 | disposition home or self-care (01) ==
LOC: EC 08:05
PROVIDERS: PCP Family Medicine; Visit Provider Orthopaedic Surgery
DX: M54.50 Low back pain, unspecified (principal); M51.369 Other intervertebral disc degeneration, lumbar region without mention of lumbar back pain or lower extremity pain
CPT/HCPCS: 72110

== ENCOUNTER 2024-07-07 12:09 | Outpatient (OUT) | payer MEDICARE, SELFPAY ==
[2024-07-07 12:29] LABS: Basophils Percent Auto 0.5 % (0.2-2.0); Eosinophils Absolute Auto 0.2 10^3/uL (0.0-0.7); Eosinophils Percent Auto 2.9 % (0.9-7.0); Hematocrit 40.8 % (42.0-54.0); Hemoglobin 13.9 g/dL (14.0-18.0); Immature Granulocytes Abs Auto 0.02 10^3/uL (0.00-0.03); Immature Granulocytes Pct Auto 0.3 % (0.0-0.5); Lymphocytes Percent Auto 33.7 % (20.5-60.0); Mean Corpuscular HGB Conc 34.1 g/dL (29.9-35.2); Mean Corpuscular Hemoglobin 33.7 pg (25.9-34.0); Mean Corpuscular Volume 98.8 fL (80.0-94.0); Mean Platelet Volume 10.2 fL (9.5-13.5); Monocytes Absolute Auto 0.7 10^3/uL (0.3-0.8); Monocytes Percent Auto 11.4 % (1.7-12.0); Neutrophils Percent Auto 51.2 % (43.0-75.0); Platelet Count 130 10^3/uL (150-450); Red Blood Count 4.13 10^6/uL (4.70-6.10); Red Cell Distribution Width 12.9 % (11.0-15.0); White Blood Count 5.8 10^3/uL (4.0-11.0)
--- OUTSIDE RECORDS SUMMARY | 2024-07-07 12:29 | XMS_ITS | CCD ---
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 CD:[id number] G h0bWw+PGhlYWQ+YC6HTHD pV03rcNEbsZ3SM9tQXH7N RVTHCMYSMZ2VIN4fxAP8K QsuK3GckjWx OyckkQZgCS28KQh7ZVP6k KpsXPhmgL5buVRqD0u0Fx IsKR64tC69ISteIOYpXzI 3LjZpbjsgbWFy B3lbXfKgpQEnYns+PHRhY mxlIHdpZHRoPScxMDAlJy UsuKnvYP6vYr4hLHPaPAN vbGxhcHNlOiBj y2lgRCHmYIwnPL6bfRerN 8TyvQJ2YROyi9z0Ja01wR I+PSDbVMT7hSsdJKpdp68 4SiTpt1xtVZQ6 tGNdNOpdOKE9F34pq9V8C NRsRHOuXXC1dUZ3mA3wbR rgzbxzD3KglRIeKtI1PGV 8pVOdsR2rqOai moaorK1jBbg+H29CVV3XW PNYQU0CBei5I5ShRfwwoW I+CJ17RLHkUF05hKDycVT nz7xgoYn9SuOn HFCbZPI2aSciNUspn0UaS WEnI35pbDYmz2F5XQQkaB evnMXpEvMppYN5uS7xCAv xbwwjw1rcfuct Vyuut9kgad34eR35A87qX QmqJTCpFHZ2YMMvHUNhoH bqqf0jnC2lRs6+VRvay2v eg2jixNj3PyPt VTKaxjVdwOlzXZY9i4SsU z34P4JtjNwjo8KvIdv1ls 90hRMnm9B7vCP9WTlrDYY dfE3iRJstDiH3 IXDqGxLjvU43pURgJFurL x7jgJujwNnxAO6mRZSfbm kzTUMmtC1zENGchXRknIz hYD5pALFpmtho l327ThTnBJF2BTIvgNUiP 5EmeX9sGqDrIWCtHODfL1 CiiBUvJCbhH369OHqcAnK 7VAZexrWwF8Ad RCQlnDxiQfE9f6P8At8Pw 6XhjzqdXWM4VOvcDVEgNf J7ZyQlKfB8J7RbEls7KOM zwPycAM4rZ3Zw LFQzidomujmiuQX8TFMsR WTmvE55cNJvMFqjRf9zm2 W2y235SYUcLAKltG87Ej2 udDogMTBwdCBU pP2tbjsqf2jhrvyiRrVtP TBbYGw1ZLb9SERaxFxzTw CaIBU7TdM6HCG7fXSflP5 ecRdsyhyrgY2h Oyc+S10cyQ3uBFO1KFT5a jmpSAJdacBpPE54KC14O8 RyPjwvdGFibGU+PGRpdiB xrTzuGP2mSuVd m5aqs7HrYWudL2CvGFFbW RvbVkq2HDDwCAQ5vRC4wB 1kXCMaSLnlb7M0kCT1I3R rfvRnal5ux5zq DJJlGTwlZ49tqWBeh7T3I EVboTV6MMKstYjtLaXgbE 93Oyc+BORtrZagx5SzOka rx6jku1widIm8 QcRtPXGhxzJzjTnoKDK0r 5UtGh56J61zWYwsXHLxQT KnVBKsEZWauMqsvt3rhI9 wIi8+PGNvbCB3 wHA9pM3jHKLdGmS1YEquF 698HuGevIQxXepxg7hxe4 nnwCg7OkGrSHDuehDvuNm eVRY3n0UgZs50 Z86iAKbbUCGdUVNwHQOgB JUnuQgbtq7bmI5xMl3+PC 4cd1thao23wS35cQO+PHR bGXC6bQpaTDfm IUErgS1cKWomVhY3AAFhN eImuM69ePCnHZbgKa2phT lupKcyKU5zTHYrshvrb10 8IuVzt9hrSHUy wGDbKEcaBSZ7K81rs5T1G QNiUBYnNEJ4gWP8bF9juC lnbjogbGVmdDsgdmVydGl tAExzSQloL356 IHRvcDsnPlBhdGllbnQgT rFhKVx8Q8HsYue4YDXriZ rbQT6lqLMhJKgnKt0bkGh dpIjbHX1nFAYk bvner077WwZon0ouFQMpe CHrDAnpNNX1O20la2F7BS YcFTDgFGL1qXH2hY5uiHb nbjogbGVmdDsg ytCxzQpnIZotPGgnI429W HRvcDsnPkJpcnRoIERhdG V2TQ84WR41qZKhg9Z0gYI 6U3SnMFItuarn xwugsUM1CCGpUUGybF99X o1olNphKq0oNUAqWRR1NM PtxOTfG7KekI5vYeYtPXF gTZSrS5RzrTXw VHklB797IWceVjU8YNTht sAsU2BwWBKqcReeRbN7y7 U2Te4KN3J2NM08EY96dDA ky9M7wRV2V2Ab MSHhcmaajqfwgXA1RXNhL LBbdQ70Mk6ukWzdXu3bTZ XqWOG6ZKGrmJSlW8JyqY7 yOiAjMDAwMDAw D6NonDIuKHhvO901LXjqS sB1FNLdysNiN4AfELVquZ pqLeI9x6N8Ci9WDBz3EO7 1NU26eFLlo9C9 yRL5K8YjCFTpgknwzdkoz IR1CAMdNDFuaO62Js3tgZ wfJf2qVQGvULC3NVEzoUF nS4WayK0cVqZf RTWvLTTqI2JngQExSLfpL 130YKplQjR3SNExlbYeD4 RsFNSbeYpfNeH5m5V3Yg0 WVDQtIP72LHL4 bSS6ID37PA23J9UhCbfbe GFibGU+PHRhYmxlIHdpZH RoPScxMDAlJyBzdHlsZT0 wJq3yQMRjYXIt fPtmxSUuJxAwv0lmGONlR WtdRU1uwFsaJ2LqaOE8CA Aql7s4Hd95A03dE5ZoeAR +WPRmjLJ0hBW0 xD7oLcIbOkO6ZYkyD511I aPsjLMyLwzrv3uwa0yznJ n7RaC3EWFiihObcKinSWS 3p6ZeXw23E88f IHdpZHRoPSIxNSUiIHZhb Eupxc6hlX3wRx2+PGNvbC H9aGL3kL6hVaKyIbP9IVk zL846HuUhbGDb Esqni8oce3halCl9JnQyS RFszyWnnKlkHHX0w0XgJe 86G2MxnPxvy8LyXvj0mh9 5lLKox7J4kRF9 G2CvPBNspxoejLDuzDbhR L9wTUFzpekxBPSikT8eVA OfC0q9PmBqAvZ7ZLypQ3N gnsB7QGIpqQKr SDzbMEM1H37pz6X9GOKoF DYkJHO7nLK0rX0riPpile ogbGVmdDsgdmVydGljYWw rHXzxX069MOJo nUylFIBvkU3kXCHckZYfx YkqBL6jWIQllikgDsJWSD lYGRksPCrOR2SUCAYPAO5 6KM08bSIdf7D4 lDW3C2VgZOPtavtvaxmtn FJ1HECrQCFgyK56vMMiFM auOe3af1T9z813ZHKiLAN daL56Ib9vlEwa DDSnkRHTsL5wtqzrx1zkj ztmTdGzEOLsYBp1OZx6SX RptQnbHfLpYXP0HlA6JKE 2mSBktU2hrHxo upqdjY2sUay+MTIvMjYvM Pf2AHmsqSN+NSBsQLK4vC iuIZffIHJizI1gIENnU3y 1ItEhSyH5IUwk O6RtVGZbiqqiRr87dY6vY hXwVqI7IYyuL2ErvqA3BK HyaWUkYRouPHM5A52gj0E 4TGGyTUVaBSM7 ePF7rN6doPzcpxjcxTEbz DsgdmVydGljYWwtYWxpZ2 52IRLxiAxrKrf6VAelOHV eCM72JQ64aZQi a8C1qJG8J0BuYMEweersn ygepZV7QQHhNRHhtW24fW YqKUnpAy0pr4F8o209UNW uOPNswO87Ke2z eHzqPZBvvUADtS9vrlbkh 0gpuesmJuMhIUUsAQm1DO i4BLRoqFgsLqFyIKK5TqC 4DEG2dOYusN5k fSiswopguM5uZur+TWFsZ TwvdGQ+DLExKVR7mWarAB ttSFJcvX3hSTNkT2e4ZuN rUjG7PYhyT7Rn BOEzkdltGq46aA6oYfGjH zH9SFuaG5CfxzG4ABCotS UeCOraZFO4R55tb2W7GNH mWMLoXZA9uQV8 sO8gaUoaeoqrbAVzvTnlk uXbjYegLYlfCDuoF626YG EcyClmPsvqXxBRiz0bEI8 mZjwvdGQ+PC90 im94L2FpTutuWhh1CGPnG IE2mFF7aK9dGJFzFGbed5 W0sMQ9W9YrnxSmvv3gd8x sVVIxWDkkG07i mTTvf6U6XTObdBR9EXFco RqcRmTdcB00Tbj+PGNvbG irz4XeMfusg7ovh4ahjHq 9IjMwJSIgdmFs aYkdXGD4k2DvNk90V30jE HdpZHRoPSIzMCUiIHZhbG semh3zgS9uIo8+PGNvbCB 2sQN0sY6oHpBh AaK9GAfoL044AnIvmYAuA ttjn3jeg8etpEd6NgRqFK DyuoUviBnhYXQ6s1BeEy6 9U3XcxCrhd4We Ndl3qw00fYOrl0W0kML3Q 3BhZGRpbmctbGVmdDogMC 4qTFBgpezzSYXtwM5sWRZ oT9n2AbUjTxL4 JIgfG2WddjY1ZNOqzQTnG CXmsWDLgW5tafwrj2ffhc krCdXyRQVhOVc9ZUu8AYX saWduOiBsZWZ0 NkB9WZU9rJZyeS0ksDazk tqlkH4fSua+VIe9t1oleM SdXZ8jvKX7SS00VF15kTI ho6O2pWY2V3Ga MIWctkmzuopzvIQ9ZEPeZ RZkrF25Jb0ygDfzQm0oIR UaZPV7WCJiyBUzR6NcfS4 yOiAjMDAwMDAw E9KvgNXlBBobH803IJqeP nG5MPWqsiGkG0FpTFXogK biLgU0c3H5Qp2KGC71YW8 9BB61yWYke7G4 sFH1A7DjQFTpyplgsvqug NW6INBzFTHgwE08Rk1fkZ ayDe0iWTTqVZZ9VQZwvTE vY0GwfP7pMdQp PPDkJPVcE9KzdXYkLQrkO 397BNwvFhL8ZIXngfSeD3 SsSDUwhTvkKeW4n7D3Mi4 GVi90HY24IN83 tWRul8W7hTJ5B8JyXNUaj nqmnjxxoMH9WXUoAZGydR 39Wh3jrPrcIm2wMAWhROG 7FINrzZGyJ4Lr oE9vIlYzCQEgCUUzX9Lbu SFkMNleV376YWsmVsB7JR TsmnQhI7YnTJFugTkyGzN 2f2T1Af7YTYco oog0I1YqNgblmRE+PC90Y AMtOU02hPSjtBJke1iubM k5KvKsIKEqHDT2wWypDNl rn0NyANQkH92g bGFw (more content not included)... Normal [facility] Physician Orderon 07-27-2021 Physician Order [id number] Normal [facility] PSA SCREENING LABCORPon Prostate specific Ag [Mass/Vol] 2.4 ng/mL Normal 0.0-4.0 [facility] Comment on above: Result Comment: Sana NUÑEZ methodology. . According to the [employer] [employer], Serum PSA should decrease and [...] disease. Performed By: #### P SASCLC #### [facility] [address] [place] [address] Dr. Jose Alves CBC AUTO DIFFon 06-21-2021 BASO # 0.0 103/ul Normal 0.0-0.1 [facility] Comment on above: Performed By: #### C BC #### [facility] [address] [place] [address] Dr. Jose Alves Basophils/100 WBC (Bld) 0.4 % Normal 0.2-2.0 [facility] Comment on above: Performed By: #### C BC #### [facility] [address] [place] [address] Dr. Joes Alves EO # 0.1 103/ul Normal 0.0-0.7 [facility] Comment on above: Performed By: #### C BC #### [facility] [address] [address] [address] Jose Alves Eosinophils/100 WBC (Bld) 2.6 % Normal 0.9-7.0 [facility] Comment on above: Performed By: #### C BC #### [facility] [address] [place] [address] Dr. Jose Alves Erythrocyte distribution width (RBC) [Ratio] 12.6 % Normal 11.0-15.0 [facility] Comment on above: Performed By: #### C BC #### [facility] [address] [place] [address] Dr. Jose Alves Hematocrit (Bld) [Volume fraction] 44.2 % Normal 42.0-54.0 [facility] Comment on above: Performed By: #### C BC #### [facility] [address] [place] [address] Dr. Jose Alves Hemoglobin (Bld) [Mass/Vol] 15.1 g/dL Normal 14.0-18.0 [facility] Comment on above: Performed By: #### C BC #### [facility] [address] [place] [address] Dr. Jose Alves IG # 0.01 10e3/ul Normal 0.00-0.03 [facility] Comment on above: Performed By: #### C BC #### [facility] [address] [place] [address] Dr. Jose Alves IG % 0.2 % Normal 0.0-0.5 [facility] Comment on above: Performed By: #### C BC #### [facility] [address] [place] [address] Dr. Jose Alves LYMPH # 2.2 103/ul Normal 1.2-3.8 [facility] Comment on above: Performed By: #### C BC #### [facility] [address] [place] [address] Dr. Jose Alves Lymphocytes/100 WBC (Bld) 40.2 % Normal 20.5-60.0 [facility] Comment on above: Performed By: #### C BC #### [facility] [address] [place] [address] Dr. Jose Alves MANUAL DIFF REQ NO Normal [facility] Comment on above: Performed By: #### C BC #### [facility] [address] [place] [address] Dr. Jose Alves MCH (RBC) [Entitic mass] 33.5 pg Normal 25.9-34.0 [facility] Comment on above: Performed By: #### C BC #### [facility] [address] [place] [address] Dr. Jose Alves MCHC (RBC) [Mass/Vol] 34.2 g/dL Normal 29.9-35.2 [facility] Comment on above: Performed By: #### C BC #### [facility] [address] [place] [address] Dr. Jsoe Alves MCV (RBC) [Entitic vol] 98.0 fL Critically high 80.0-94.0 [facility] Comment on above: Performed By: #### C BC #### [facility] [address] [place] [address] Dr. Jose Alves MONO # 0.5 103/ul Normal 0.3-0.8 [facility] Comment on above: Performed By: #### C BC #### [facility] [address] [place] [address] Dr. Jose Alves Monocytes/100 WBC (Bld) 8.9 % Normal 1.7-12.0 [facility] Comment on above: Performed By: #### C BC #### [facility] [address] [place] [address] Dr. Jose Alves NEUT # 2.6 103/ul Normal 1.4-6.5 [facility] Comment on above: Performed By: #### C BC #### [facility] [address] [place] [address] Dr. Jose Alves Neutrophils/100 WBC (Bld) 47.7 % Normal 43.0-75.0 [facility] Comment on above: Performed By: #### C BC #### [facility] [address] [place] [address] Dr. Jose Alves Platelet mean volume (Bld) [Entitic vol] 9.9 fL Normal 9.5-13.5 [facility] Comment on above: Performed By: #### C BC #### [facility] [address] [place] [address] Dr. Jose Alves PLT 201 103/ul Normal 150-450 [facility] Comment on above: Performed By: #### C BC #### [facility] [address] [place] [address] Dr. Jose Alves RBC 4.51 106/ul Critically low 4.70-6.10 [facility] Comment on above: Performed By: #### C BC #### [facility] [address] [place] [address] Dr. Jose Alves WBC 5.4 103/ul Normal 4.0-11.0 [facility] Comment on above: Performed By: #### C BC #### [facility] [address] [place] [address] Dr. Jose Alves MICROALBUMIN, RAND URon mALB 2.1 mg/L Normal <=30.0 [facility] Comment on above: Performed By: #### M ALBR #### [facility] [address] [place] [address] Dr. Jose Alves PROF CHEM 8 (BAS METB)on Anion gap [Moles/Vol] 12.5 mmol/L Normal [facility] Comment on above: Performed By: #### B MP #### [facility] [address] [place] [address] Dr. Jose Alves Calcium [Mass/Vol] 8.9 mg/dL Normal 8.4-10.2 [facility] Comment on above: Performed By: #### B MP #### [facility] [address] [place] [address] Dr. Jose Alves Chloride [Moles/Vol] 105 mmol/L Normal 98-107 [facility] Comment on above: Performed By: #### B MP #### [facility] [address] [place] [address] Dr. Jose Alves CO2 [Moles/Vol] 29.1 mmol/L Normal 22.0-30.0 [facility] Comment on above: Performed By: #### B MP #### [facility] [address] [place] [address] Dr. Jose Alves Creatinine [Mass/Vol] 1.13 mg/dL Normal 0.66-1.25 [facility] Comment on above: Performed By: #### B MP #### [facility] [address] [place] [address] Dr. Jose Alves EGFR-AF HONDURAN >60 Normal >=60 [facility] Comment on above: Performed By: #### B MP #### [facility] [address] [place] [address] Dr. Jose Alves EGFR-NON AF HONDURAN >60 Normal >=60 [facility] Comment on above: Performed By: #### B MP #### [facility] [address] [address] [address] Jose Alves Glucose [Mass/Vol] 100 mg/dL Normal 74-106 [facility] Comment on above: Performed By: #### B MP #### [facility] [address] [address] [address] Jose Alves Potassium [Moles/Vol] 4.6 mmol/L Normal 3.4-5.0 [facility] Comment on above: Performed By: #### B MP #### [facility] [address] [address] [address] Jose Alves Sodium [Moles/Vol] 142 mmol/L Normal 137-145 [facility] Comment on above: Performed By: #### B MP #### [facility] [address] [address] [address] Jose Alves Urea nitrogen [Mass/Vol] 22.0 mg/dL Critically high 9.0-20.0 [facility] Comment on above: Performed By: #### B MP #### [facility] [address] [address] [address] Jose Alves Urea nitrogen/Creatinine [Mass ratio] 19.5 mg/mg Normal [facility] Comment on above: Performed By: #### B MP #### [facility] [address] [address] [address] Jose Alves Vital Signs Date Time Vital Sign Value Performing Clinician Facility 01-12-2024 08: Body height 171.45 cm [facility] 01-12-2024 08: Body mass index (BMI) [Ratio] 23.7 kg/m2 [facility] 01-12-2024 08: Body weight 69.85 kg [facility] 01-12-2024 08: Diastolic blood pressure 76 mm[Hg] [facility] 01-12-2024 08: Heart rate 55 /min [facility] 01-12-2024 08:27-0400 Systolic blood pressure 179 mm[Hg] [facility] 07-07-2023 08:30-0500 Body height 171.45 cm Bee Cutler Other [facility] Other 07-07-2023 08:30-0500 Body mass index (BMI) [Ratio] 24.84 kg/m2 Bee Cutler Other [facility] Other 07-07-2023 08:30-0500 Body weight 73.03 kg Bee Cutler Other [facility] Other 07-07-2023 08:30-0500 Diastolic blood pressure 80 mm[Hg] Bee Cutler Other [facility] Other 07-07-2023 08:30-0500 Systolic blood pressure 160 mm[Hg] Bee Cutler Other [facility] Other 01-02-2023 08:30-0400 Body height 171.45 cm Bee Cutler Other [facility] Other 01-02-2023 08:30-0400 Body mass index (BMI) [Ratio] 24.38 kg/m2 Bee Cutler Other [facility] Other 01-02-2023 08:30-0400 Body weight 71.67 kg Bee Cutler Other [facility] Other 01-02-2023 08:30-0400 Diastolic blood pressure 74 mm[Hg] Bee Cutler Other [facility] Other 01-02-2023 08:30-0400 Systolic blood pressure 142 mm[Hg] Bee Cutler Other [facility] Other 12-05-2022 09:15-0400 Body height 171.45 cm Bee Cutler Other [facility] Other 12-05-2022 09:15-0400 Body mass index (BMI) [Ratio] 24.07 kg/m2 Bee Cutler Other [facility] Other 12-05-2022 09:15-0400 Body weight 70.76 kg Bee Cutler Other [facility] Other 12-05-2022 09:15-0400 Diastolic blood pressure 78 mm[Hg] Bee Cutler Other [facility] Other 12-05-2022 09:15-0400 Systolic blood pressure 159 mm[Hg] Bee Cutler Other [facility] Other Encounters Encounter Date Encounter Type Care Provider Facility Start: 01-12-2024 End: 01-12-2024 ambulatory [facility] Work Phone: Start: 01-12-2024 End: 01-12-2024 Patient encounter procedure [facility] Work Phone: Start: 07-07-2023 End: 07-07-2023 ambulatory Bee Cutler Other [facility] Other Start: 07-07-2023 Office outpatient vi sit 15 minutes Bee Cutler [facility] Start: 01-02-2023 End: 01-02-2023 ambulatory Bee Cutler Other [facility] Other Start: 01-02-2023 Office outpatient vi sit 15 minutes Bee Cutler [facility] Start: 12-05-2022 End: 12-05-2022 ambulatory Bee Cutler Other [facility] Other Start: 12-05-2022 Office outpatient vi sit 15 minutes Bee Cutler [facility] Start: 09-19-2022 End: 09-19-2022 ambulatory Bee Cutler Other [facility] [employer] Other Start: 09-19-2022 Telephone encounter Bee Cutler [facility] Start: 01-19-[address] BEE CUTLER Facil ity:H1 Start: 01-04-2022 End: 01-05-[address] BEE CUTLER Facility:[facility] Start: 06-21-2021 End: 06-22-[address] BEE CUTLER Facility:[facility] Start: 05-24-2021 End: 05-25-[address] BEE CUTLER Facility:[facility]1 Plan of Treatment Date Care Activity Detail Author Comprehensive metabo lic 1999 panel - Serum or Plasma [facility] enter XR Chest 2 Views [facility] Immunizations Immunization Date Immunization Notes Care Provider Fa cility 03-23-2021 influenza virus vaccine, split virus (incl. purified surface antigen) Bee Ctuler Other [employer] [facility] [employer] Other 03-23-2021 influenza virus vaccine, unspecified formulation [facility] 03-24-2020 influenza virus vaccine, split virus (incl. purified surface antigen) Bee Cutler Other [facility] [employer] Other 03-24-2020 influenza virus vaccine, unspecified formulation [facility] Payers Date Payer Category Payer Self-pay 1960 Unknown [id number] 1945 Unknown [id number] 2.16.84 [id number] 1945 Unknown [id number] 2.16.84 [id number] 1945 Unknown [id number] 2.16.84 [id number] 1945 Unknown [id number] 2.16.84 [id number] Medicare [id number] 2.1 [id number] Social History Date Type Detail Facility Sex Assigned At [facility] Other Start: 09-11-2023 Tobacco smoking stat us NHIS Ex-smoker (finding) [facility] Start: 1945 Sex Assigned At Male F [facility] Evaluation note 07-07-2023 Note Date & [...] medication with food to prevent stomach upset. [facility] Other Evaluation note 01-02-2023 Note Date & [...] and followup at their office in January. [facility] Other Evaluation note 12-05-2022 Note Date & Type Note Facility 12-05-2022 Evaluation note Encounter Date Diagnosis Assessment Notes Nov, Plantar fasciitis, left (ICD-10 - M72.2) Pt already taking aleve. Agrees to referral to Podiatry, requests Dr. Rushing. [facility] Other Evaluation note 09-19-2022 Note Date & Type Note Facility 09-19-2022 Evaluation note Encounter Date Diagnosis Assessment Notes Sep, Essential (primary) hypertension (ICD-10 - I10) [facility] Other Clinical Note 05-25-2021 Note Date & [...] by: CLARISSA WEEMS Date: 2021-05-25 07:15 [facility] Evaluation note Note Date & Type Note [...] History rotator cuff repair left should er [facility] Other Summary Purpose Family History Relationship Condition Age at Onset Recorded Date/T teodoro brother Unknown Malignant neoplasm Unknown father Unknown mother Unknown Advance Directives Advance Directive Response Recorded Date/ Time Advance Directives No July 07, 2023 11:06am Reason for Referral Reason *FU 12/13 L planta r fasciitis Diagnosis 1 Plantar fasciitis, l eft (M72.2) Referral Organization [facility] Nasreen berger Referring Provider First Name Bee Referring Provider Last Name Philly Referring Provider Specialty Family [facility] Referred Organization [facility] Referred Provider Tato Rushing Referred Address [address] [place], [place],[address] Referred Provider Specialty Podiatry - S urgical [...] content) DATE CREATED AUTHOR 08/03/2021 Marciano Stone [facility] DATE CREATED AUTHOR AUTHOR'S ORGANLENORA ATION 01/19/2022 [facility] REASON FOR VISIT (unrecogniz ed [...] PRIMARY CLINICAL RECORDS. [facility] [employer] [facility]. provides no warranty or guarantee of the accuracy or completeness of information in this document.
[2024-07-07 13:01] LABS: Alanine Aminotransferase 48 U/L (16-63); Albumin Globulin Ratio 0.9; Albumin Level 3.7 g/dL (3.4-5.0); Alkaline Phosphatase 117 U/L (46-116); Aspartate Amino Transferase 123 U/L (15-37); Calcium 9.2 mg/dL (8.5-10.1); Carbon Dioxide 27.3 mmol/L (21.0-32.0); Chloride 99 mmol/L (98-107); Estimated GFR (African America >60 (>=60 mL/min/1.73m^2); Estimated GFR (Non-African Ame >60 (>=60 mL/min/1.73m^2); Globulin 3.9 g/dL; Glucose 80 mg/dL (74-106); Potassium 4.3 mmol/L (3.5-5.1); Sodium 138 mmol/L (136-145); Total Protein 7.6 g/dL (6.4-8.2)
== END 2024-07-07 12:10 | disposition home or self-care (01) ==
LOC: LAB 12:11
PROVIDERS: PCP Family Medicine; Visit Provider Family Medicine
DX: I10 Essential (primary) hypertension (principal)
CPT/HCPCS: 36415; 80053; 85025

== ENCOUNTER 2024-07-08 07:25 | Outpatient (OUT) | payer MEDICARE, SELFPAY ==
--- NOTE | 2024-07-08 07:27 | ECG_ITS ---
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
--- OUTSIDE RECORDS SUMMARY | 2024-07-08 07:28 | XMS_ITS | CCD ---
Author Organization [facility] Care Team Providers Care Telephone Information Supervisor Name Role Phone DR BEE CUTLER Primary Care Unavailable PHILLY, DR BEE Zuniga Consulting Unavailable CUTLER, DR BEE Zuniga Attending Unavailable CUTLER, DR BEE Zuniga Admitting Unavailable CLARISSA NOVAK Consulting Unavailable PHILLY, DR BEE Zuniga Admitting Unavailable CUTLER, DR BEE Zuniga Primary Care Unavailable CUTLER, DR BEE Zuniga Consulting Unavailable CUTLER, DR BEE Zuniga Attending Unavailable CUTLER, DR BEE Zuniga Primary Care Unavailable RADHA, TATO Melo Attending Unavailable TATO RUSHING Admitting Unavailable BOKCHITO, DR CLARISSA Andrade Consulting Unavailable RADHA, TATO Melo Consulting Unavailable PHILLY, DR BEE Zuniga Primary Care Unavailable PHILLY, DR BEE Zuniga Attending Unavailable CUTLER, DR BEE Zuniga Admitting Unavailable Bee Cutler Unavailable Bee Cutler MD Primary Care Provider [phone] Bee Cutler MD Attending Provider Medications Current Medications Medication Drug Class(es) Dates [...] 2 puffs Inhalation Twice a day Active losartan potassium 50 mg oral tablet (1 source) Angiotensin 2 Receptor Ana Start: 07-07-2024 take 1 tablet by mouth once daily Losartan 50 mg tablet Active 50 MG PO daily July 07, 2024 12:00am methylPREDNISolone 4 mg oral tablet (1 source) Corticosteroid Start: 07-03-2022 methylPREDNISolone 4 MG as directed Orally for 6 days Jun, Active metoprolol tartrate 50 mg oral tablet (11 sources) beta-Adrenergic Ana Start: 03-08-2024 End: 06-28-2024 take 1 tablet by mouth twice daily Metoprolol Tartrate 50 mg tablet Active 0 .ROUTE .COMPLEX June 28, 2024 10:45am TAKE 1 TABLET BY MOUTH TWICE A DAY Start: 09-11-2023 End: 03-08-2024 take 1 tablet by mouth twice daily Metoprolol Tartrate 50 mg tablet Discontinued 50 MG PO Twice daily September 11, 2023 12:10pm March 08, 2024 12:11pm Start: 09-19-2022 take 1 tablet by [facility] every twelve hours Metoprolol Tartrate 50 MG 1 tablet with food Orally Twice a day for 90 days Sep, Active take 1 capsule by [facility] once daily Metoprolol Succinate 50 MG 1 capsule Orally Once a day Active naproxen sodium 220 mg oral capsule (6 sources) Nonsteroidal Anti-inflammatory Drug Start: 01-08-2024 take 1 capsule by mouth every twelve hours at mealtime as needed Naproxen Sodium (Aleve) 220 mg capsule Active 220 MG PO Every 12 hours January 07, 2024 11:00pm [employer] capsule with food or milk as needed Orally every 12 hrs as needed; Note: Source Status: Taking; Provider: Philly Gamboa ( ) take 1 capsule by [facility] every twelve hours at mealtime as needed Aleve 220 MG 1 capsule with food or milk as needed Orally every 12 hrs as needed Active Completed/Discontinued Medications Medication Drug Class(es) Dates Sig (Normalized) Sig (Original) Fluticasone Propionate 110 mcg/actuation HFA aerosol inhaler (1 source) Start: 01-08-2024 End: 07-07-2024 take 2 puff(s) by inhalation twice daily Fluticasone Propionate 110 mcg/actuation HFA aerosol inhaler Discontinued 2 PUFF INHALATION Twice daily January 07, 2024 11:00pm July 07, 2024 8:34am [employer] puffs Inhalation Twice a day; Note: Source Status: Refill; Provider: Philly Zuniga Multivitamins (1 source) Multivitamins Not-Taking Suprep Bowel [...] disease with (acute) exacerbation] Chronic Essential hypertension (19 sources) Essential (primary) hypertension; Translations: [Essential hypertension] Onset: 06-21-2021 Chronic Other connective tissue disease (1 source) Plantar fascial fibromatosis Episodic Other connective tissue disease (1 source) Pain in left foot Episodic Other gastrointestinal disorders (4 sources) Hemorrhagic diarrhea ; Translations: [Diarrhea, unspecified] Episodic Other lower respiratory disease (11 sources) Chronic cough; Translations: [Chronic cough] Onset: [...] NOVAK Date: 2022-01-04 08:32 Normal [facility] Coding Summary.on 08-02-2021 Coding Summary. [id number] G h0bWw+PGhlYWQ+FV0IBCN kK21khDFsqR6AE2bGVW8H OEAQOZBSMO8BDW6vhAS0L WufS5QqyjMc WbhsaUSySH04TWc0MQL4o LyyYJiswX3ctRRcL5i0Uo LnNY21aV83EFyvUTTfAhK 3LjZpbjsgbWFy Q0okJgHcpZQtDnu+PHRhY mxlIHdpZHRoPScxMDAlJy XjfItpOF1iFl2eXAOyGDR vbGxhcHNlOiBj h2kpCMSeWFrgMT8zvIlrB 4FteQQ4WJHxq8m9Hi37eW I+SCSeDCI7dNnsPCeds36 0MpJmr2ezKCT5 gPHpSFzhNUN5P74ym0W8G WDfBYAvYFB2gAO9zG7lvA scwmcnQ8SncIXrWxA3WFR 5vEYhrA5nvEfd weokiU4hKsd+V84IUB7ZW NLNLJ9ZIik9C7NnPailwJ I+ZR59LIBqZX32eSGbtJH ec2ofcNq6LeLx LEGzDHP0gThyTUsha0CmB HJtX07mfZRbp1X4DQMdlQ tvbDYaXtIcjFW4gQ2fHOz dzefuy3juervq Lxchw4cqld32vE76S96hC CshLCDkYZQ9ACYgLFTobO cqzk1xuT4uCo7+JVmce3z mq9fotRk8UnLx GNRgdhWcvLyfFHD6j3LvF h00L9AdyMewk0XsJjr4ug 01mDHxa3F0hJT1EYlxIFR lwD8wVBvzPuM8 HFYnOiLgaK52xLPpQPcjG p3kmZcnsFddXN8pLBHpak lzFBIdlA3xWRDmhMPzoUk gTM9iFGRfngqy i315SaEvWNJ7OVGyuMRgC 2BzlX7ySlDbNVCsBQKqR9 ZsyUOuYJlmZ768MAatQlJ 5VQYvncXxY7Jo XHPykFyyYaY2v5P3Gb1Bd 0PbwyqeJTB5YHceHJWqMt D2PdYkXeA8S0PjFof9PYW deXinGT3tK2Dy PPQvcmcguzevmOR7RRJmI UKkgG66vLAbLWjaSv9if2 D3u422LDVcXDHzdK82Uc6 udDogMTBwdCBU uQ7wkpwni9hdtsosDnWfL LCwTIk8NGd3HMItvLgpWb UcUHQ3XsP6OEP9oGFixW1 mvWxabamuoB4u Oyc+K87plJ5vOBY0EOW3e vklAPMnotIdOU13LJ90T3 RyPjwvdGFibGU+PGRpdiB qyIqzYJ0fCjZf j7xhb9GuLGvaF9NfCAOeO EejOkr0UVQfNEP8sPP0yZ 1oXROsZXpey0V0iCK1U2Q ksvYlns6bj3uo FXTyNKxdX14trKNnv1J8A JHbrZW4MATatBklTsYzkQ 93Oyc+VTWlzYvtq7JeZzv vn3fni4kmrUu8 UdRwJFUavkKhnTqfYRZ4x 4FsRd91P02kUXunCKRlVK ZhMBIeMVXcxFikng8fuC7 wIi8+PGNvbCB3 xUK4rI0lWNYsUmV0EJwvG 809AhLvoWNtLfggq6jum0 nicCa9QtNkATCykaMtxEi yJHA3w3XnCe49 Q23kQPmuGJWpKMKbAEUkY TFwbWtaxk8ejD1kHg1+PC 9iy2xeme30cU70fHE+PHR aWVW2kOpeYMvb OFMcnZ7uIAqiIxC6YDXeU wYdrS36nAIfNBqkUl0cbN iwoBkxNC9pYLUhlkibh31 6SvByi5dcQOGf aHPqCTyvKTY1W37pc3W1R TZbBVVcWQP2mEP9uI4eiA lnbjogbGVmdDsgdmVydGl nPFyjOJgfU834 IHRvcDsnPlBhdGllbnQgT gUcCSz6V5ApNvx5EGHgyG zbDX3cdDCaYRvyWn0vlHg orGdlLW9eZXQz irfpi389RiImq3kxXBNca SZpMWxwDZB7A45yp6J5NI WcLWUoUFA3gZQ8dJ0ylGv nbjogbGVmdDsg mmSmvWmlCJzvORtmH784H HRvcDsnPkJpcnRoIERhdG W9KP63XJ61gXBhu6F0nZR 9R6JyVLIadkdy yotojEY8IVMsCEMnlH84C r7fvJynRn6nGBYrCEL9JH VlqLYdW8CgbE9gTcUiFMH xQEGsT5IcyLNx NEldR093NSbgYfP6XHQmj hDpT6LrDOBdgJhrOeP8w5 S8Wl9JB3J2WR39DS13uIK kg4F3fHK6J9Na YMOnghvgauqriPL1XGLbO DDwsM06Kc0wmVlzVi5sKQ BsZRL5FUQzhGTgX5QcxZ8 yOiAjMDAwMDAw G1BfzDNbRQxeV375CScaN zT9TASkqzRpZ3QrEWXozV vuNpZ6c2C8Dr6UWVh7QX2 0NQ61gELnl8G0 bOL0G4RqTCPkukeyidode ML6WZPiNWOceA22Wi5jlY wcPe7zOWNcQSB0EEMprNS gB7JwrT9qKkVf SOFbYLSaC9KvxEWaIVcuD 898SBdbTdQ1WLAnooRhB3 CrICMxnSojMmM7v5S7Nh5 DVYMnLM29TIQ8 pOF8VU54TD64B7BoGftek GFibGU+PHRhYmxlIHdpZH RoPScxMDAlJyBzdHlsZT0 tNy1lZJNmDCAk zXpywRUhMpYwt0lpHSVrZ GabBQ7odXhnL3SnbUC3GD Bdm5a3Va65W58tA8PdwHA +MGOwmQP8sZF2 lE1eLpInAoI6PAncW637H rDyeWIzYeask2ktg7pimU z9DhY6LVZctaTbvTmwBFL 4r8NdOo85P51r IHdpZHRoPSIxNSUiIHZhb Fyoqa3sjV7sRm7+PGNvbC B2jLT6rS3uPnYiOhF2GPw nG303CfGbaTVy Isvfd6qsz1nfuGy6YkJvW GShuyWggSfmYKG0t4WbKk 73G8PlgCjls5AxQog4wo5 6nLUcn7W3mVB0 L7WdPMIakskecFUxnVroS N6bJPTkmemoFETmqL5yUR SvM0g2KuZzQdT5ZCiqA4W tmrE2YLQafQXf DAvkCXC3Q01kr1H9XKDqK MMpVDZ9sRH4eV8mjYbocv ogbGVmdDsgdmVydGljYWw mNDzwL366DFMq rYyiKOMptM0wSTLacAPbu SvwCI8vIEGfignwLyYDZX fJKNgzSTsXM7VXDTUFXR7 7GT16gEOoc8O5 mAQ0A8IhCXJcprrxwgvji PY3SQNdXQQqgK80xLDdFQ hnSp0ux0Y7c814TSYgTHM rsQ99Ez9fbFjc SRNduMHYrU9mjford2jwr cvlYsAxZLOsGZz3TEv7ZG QozNfhIvLwAVE6RdV0UPY 7cQAwnD0tjIye gztbpI0lCvn+MTIvMjYvM Fy3MGlpwEE+KADmXLV0oN tpRRbkUWVygB7tXUQlB0e 6TtFvZcF1FLtr H4VkQISxhfpdIy20rN1fC bIcPaL4IRrmQ0PvvnY3ID ViaIDkSVnrIWM8S13ld1V 0TNSqZDOfGCK4 vBA1eD4ewGyjetyrlBRhc DsgdmVydGljYWwtYWxpZ2 79GDRbnXxeJzn1FCqkWBF rAN09XT79zGKw n6G8nOO4E8TfIQZumwnnq lwblES4RCYmLFUbvT37yG OwXJdhEy8pz2C2d030EEE vMKEvxX71Yy7k jPhgNSOnuCIMzK5uscjzm 3vuelqwBkYfMAMhEMj7NF i7FFJjeUzuEnAtSWT5ViL 2QJH0wXBgdI7z zYfhlwwxoL7rGky+TWFsZ TwvdGQ+MCLwPND0sPwhUP rsTVHdeX6mPKNgX6w0RwX cXsN9CWcdF4Oe HYTowgezXr63uX7hMmCbI oK0JXkhD4LgqpZ3URPvhD PaQMgvPCY7D62gw0U7XBJ wNKZlGOG3sNI4 zJ9lyXwxjoqcoGAbdSzmu rUkaOxyFHwbBQoiK351FK SnuJyaEawiNsFCro8jUB8 mZjwvdGQ+PC90 qz20R4ZoKsmnXec2CDZxG RA5uDX9kE1cQZZkEMcjj3 Q7nZZ1T6WmpsZvsc9ek9d vBVZyZXccX92u qWCwy1A0WPOmwLX9NSCje MndYwLxwY07Gmj+PGNvbG uby4JlRevdp1nzn4sojFb 9IjMwJSIgdmFs uJjkHVY3u2XhVq78N90jW HdpZHRoPSIzMCUiIHZhbG suho6doK8yLq5+PGNvbCB 4gYJ1iC7eYnEp SwY2WXatK731UxLiyTSkS uxpv8fsq8olhAo4XlDsMK KevpNnxQrzQLH2d2IiZn2 7O7JlcSmrk5Yn Czr6ew61xSPef8W1oMY7Q 3BhZGRpbmctbGVmdDogMC 1nUFCbhadpUJCfgU0vPVO jN4h5NiBmJvB8 GJsiI6JzgmO0JJYibVJgW FRhrPFKuR8djfsai2sgfw vvAnMaLPAmKUg1RMq1VVJ saWduOiBsZWZ0 TgO0MOA6nAJwnH8jvOzug rreaF7zVcl+BBn4h9vskI PkXA9cjND9ER78YL38hEF jz8Z6pEP3T1Ei LUAqbzgudthrvPZ8DBHtC IYgqF59Yw2ngGuyOf2dTF RgDFU1XQUhuRPgG2UtaS8 yOiAjMDAwMDAw W9TuxCYsSZbuD616OHwlN vX8GWBhioPaD6JqWPUdmC jaCgJ3c8Y9As8MTD74OG5 7AF72uCDri8D6 vMW7P2ZyPLZrltyjctohi TO8WSMcLLWmqL11Kb7sjC srPr6iAIGqRDG2DYKvdTW lN8DllA9xYqUy TPIcSVRcX3TfeCQsUIubR 104YTgqGvL7RYWegiJhW8 XoKLCevJrnQmD7g8H8Jz5 GNn92QY05BE85 rPOas9F6nLB4A0BqQJOcz fgmvqgryVX3CIJvMYDkdZ 45Az4oqOpcIk7lEYBcYKX 9OYPfqYKtX3Zd zZ3nVuTnQBVmMHVsY8Omw AGfTXidS044XAodPqH4ZO ShbuCrB7JfEZPogIssHbU 2t2Q1Ks8ZJGdi xdh2R7UtVuougSM+PC90Y TWrFW52dXFkgBZwn1idwZ l2EkFdNBJdHGW1gNelPMc sw3KaAIVdF76b bGFw (more content not included)... Normal [facility] Physician Orderon 07-27-2021 Physician Order [id number] Normal [facility] PSA SCREENING LABCORPon Prostate specific Ag [Mass/Vol] 2.4 ng/mL Normal 0.0-4.[address] [facility] Comment on above: Result Comment: Sana NUÑEZ methodology. . According to the [place] [employer], Serum PSA should decrease and [...] Performed By: #### P SASCLC #### [facility] [address] [place] [address] Dr. Jose Alves CBC AUTO DIFFon 06-21-2021 BASO # 0.0 103/ul Normal 0.0-0.[address] [facility] Comment on above: Performed By: #### C BC #### [facility] [address] [address] [address] Jose Alves Basophils/100 WBC (Bld) 0.4 % Normal 0.2-2.[address] [facility] Comment on above: Performed By: #### C BC #### [facility] [address] [place] [address] Dr. Jose Alves EO # 0.1 103/ul Normal 0.0-0.[address] [facility] Comment on above: Performed By: #### C BC #### [facility] [address] [place] [address] Dr. Jose Alves Eosinophils/100 WBC (Bld) 2.6 % Normal 0.9-7.[address] [facility] Comment on above: Performed By: #### C BC #### [facility] [address] [place] [address] Dr. Jose Alves Erythrocyte distribution width (RBC) [Ratio] 12.6 % Normal 11.0-15.[address] [facility] Comment on above: Performed By: #### C BC #### [facility] [address] [place] [address] Dr. Jose Alves Hematocrit (Bld) [Volume fraction] 44.2 % Normal 42.0-54.[address] [facility] Comment on above: Performed By: #### C BC #### [facility] [address] [place] [address] Dr. Jose Alves Hemoglobin (Bld) [Mass/Vol] 15.1 g/dL Normal 14.0-18.[address] [facility] Comment on above: Performed By: #### C BC #### [facility] [address] [place] [address] Dr. Jose Alves IG # 0.01 10e3/ul Normal 0.00-0.03 [facility] Comment on above: Performed By: #### C BC #### [facility] [address] [place] [address] Dr. Jose Alves IG % 0.2 % Normal 0.0-0.5 [facility] Comment on above: Performed By: #### C BC #### [facility] [address] [place] [address] Dr. Jose Alves LYMPH # 2.2 103/ul Normal 1.2-3.8 [facility] Comment on above: Performed By: #### C BC #### [facility] [address] [place] [address] Dr. Jose Alves Lymphocytes/100 WBC (Bld) 40.2 % Normal 20.5-60.[address] [facility] Comment on above: Performed By: #### C BC #### [facility] [address] [place] [address] Dr. Jose Alves MANUAL DIFF REQ NO Normal [facility] Comment on above: Performed By: #### C BC #### [facility] [address] [place] [address] Dr. Jose Alves MCH (RBC) [Entitic mass] 33.5 pg Normal 25.9-34.[address] [facility] Comment on above: Performed By: #### C BC #### [facility] [address] [place] [address] Dr. Jose Alves MCHC (RBC) [Mass/Vol] 34.2 g/dL Normal 29.9-35.[address] [facility] Comment on above: Performed By: #### C BC #### [facility] [address] [place] [address] Dr. Jose Alves MCV (RBC) [Entitic vol] 98.0 fL Critically high 80.0-94.[address] [facility] Comment on above: Performed By: #### C BC #### [facility] [address] [place] [address] Dr. Jose Alves MONO # 0.5 103/ul Normal 0.3-0.8 [facility] Comment on above: Performed By: #### C BC #### [facility] [address] [place] [address] Dr. Jose Alves Monocytes/100 WBC (Bld) 8.9 % Normal 1.7-12.0 [facility] Comment on above: Performed By: #### C BC #### [facility] [address] [place] [address] Dr. Jose Avles NEUT # 2.6 103/ul Normal 1.4-6.5 [facility] Comment on above: Performed By: #### C BC #### [facility] [address] [address] [address] Jose Alves Neutrophils/100 WBC (Bld) 47.7 % Normal 43.0-75.[address] [facility] Comment on above: Performed By: #### C BC #### [facility] [address] [address] [address] Jose Alves Platelet mean volume (Bld) [Entitic vol] 9.9 fL Normal 9.5-13.[address] [facility] Comment on above: Performed By: #### C BC #### [facility] [address] [address] [address] Jose Alves PLT 201 103/ul Normal 150-[address] [facility] Comment on above: Performed By: #### C BC #### [facility] [address] [place] [address] Dr. Jose Alves RBC 4.51 106/ul Critically low 4.70-6.10 [facility] Comment on above: Performed By: #### C BC #### [facility] [address] [place] [address] Dr. Jose Alves WBC 5.4 103/ul Normal 4.0-11.[address] [facility] Comment on above: Performed By: #### C BC #### [facility] [address] [place] [address] Dr. Jose Alves MICROALBUMIN, RAND URon mALB 2.1 mg/L Normal <=30.[address] [facility] Comment on above: Performed By: #### M ALBR #### [facility] [address] [place] [address] Dr. Jose Alves PROF CHEM 8 (BAS METB)on Anion gap [Moles/Vol] 12.5 mmol/L Normal [facility] Comment on above: Performed By: #### B MP #### [facility] [address] [place] [address] Dr. Jose Alves Calcium [Mass/Vol] 8.9 mg/dL Normal 8.4-10.2 [facility] Comment on above: Performed By: #### B MP #### [facility] [address] [address] [address] Jose Alves Chloride [Moles/Vol] 105 mmol/L Normal 98-107 [facility] Comment on above: Performed By: #### B MP #### [facility] [address] [address] [address] Jose Alves CO2 [Moles/Vol] 29.1 mmol/L Normal 22.0-30.0 [facility] Comment on above: Performed By: #### B MP #### [facility] [address] [address] [address] Jose Alves Creatinine [Mass/Vol] 1.13 mg/dL Normal 0.66-1.[address] [facility] Comment on above: Performed By: #### B MP #### [facility] [address] [place] [address] Dr. Jose Alves EGFR-AF IRANIAN >60 Normal >=60 [facility] Comment on above: Performed By: #### B MP #### [facility] [address] [place] [address] Dr. Jose Alves EGFR-NON AF IRANIAN >60 Normal >=[address] [facility] Comment on above: Performed By: #### B MP #### [facility] [address] [place] [address] Dr. Jose Alves Glucose [Mass/Vol] 100 mg/dL Normal 74-106 [facility] Comment on above: Performed By: #### B MP #### [facility] [address] [address] [address] Jose Alves Potassium [Moles/Vol] 4.6 mmol/L Normal 3.4-5.0 [facility] Comment on above: Performed By: #### B MP #### [facility] [address] [place] [address] Dr. Jose Alves Sodium [Moles/Vol] 142 mmol/L Normal 137-145 [facility] Comment on above: Performed By: #### B MP #### [facility] [address] [place] [address] Dr. Jose Alves Urea nitrogen [Mass/Vol] 22.0 mg/dL Critically high 9.0-20.[address] [facility] Comment on above: Performed By: #### B MP #### [facility] [address] [place], [place] [address] Dr. Jose Alves Urea nitrogen/Creatinine [Mass ratio] 19.5 mg/mg Normal [facility] Comment on above: Performed By: #### B MP #### [facility] [address] [place], [place] [address] Dr. Jose Alves Vital Signs Date Time Vital Sign Value Performing Clinician Facility 07-07-2024 08:290500 Body height 171.45 cm Bee Cutler MD Work Phone: [facility] 07-07-2024 08:29-0500 Body mass index (BMI) [Ratio] 23.6 kg/m2 Bee Cutler MD Work Phone: [facility] 07-07-2024 08:29-0500 Body weight 69.62 kg Bee Cutler MD Work Phone: [facility] 07-07-2024 08:29-0500 Diastolic blood pressure 81 mm[Hg] Bee Cutler MD Work Phone: [facility] 07-07-2024 08:29-0500 Heart rate 54 /min Bee Cutler MD Work Phone: [facility] 07-07-2024 08:29-0500 Systolic blood pressure 176 mm[Hg] Bee Cutler MD Work Phone: [facility] 01-12-2024 08:27-0400 Body height 171.45 cm [facility] 01-12-2024 08:27-0400 Body mass index (BMI) [Ratio] 23.7 kg/m2 [facility] 01-12-2024 08:27-0400 Body weight 69.85 kg [facility] 01-12-2024 08:27-0400 Diastolic blood pressure 76 mm[Hg] [facility] 01-12-2024 08:27-0400 Heart rate 55 /min [facility] 01-12-2024 08:27-0400 Systolic blood pressure 179 mm[Hg] [facility] 07-07-2023 08:30-0500 Body height 171.45 cm Bee Cutler Other [facility] Other 07-07-2023 08:30-0500 Body mass index (BMI) [Ratio] 24.84 kg/m2 Bee Cutler Other [facility] Other 07-07-2023 08:30-0500 Body weight 73.03 kg Bee Cutler Other [facility] Other 07-07-2023 08:30-0500 Diastolic blood pressure 80 mm[Hg] Bee Cutler Other [facility] Other 07-07-2023 08:30-0500 Systolic blood pressure 160 mm[Hg] Bee Cutler Other [facility] Other 01-02-2023 08:30-0400 Body height 171.45 cm Bee Cutler Other [facility] Other 01-02-2023 08:30-0400 Body mass index (BMI) [Ratio] 24.38 kg/m2 Bee Cutler Other [facility] Other 01-02-2023 08:30-0400 Body weight 71.67 kg Bee Cutler Other [facility] Other 01-02-2023 08:30-0400 Diastolic blood pressure 74 mm[Hg] Bee Cutler Other [facility] Other 01-02-2023 08:30-0400 Systolic blood pressure 142 mm[Hg] Bee Cutler Other [facility] Other 12-05-2022 09:15-0400 Body height 171.45 cm Bee Cutler Other [facility] Other 12-05-2022 09:15-0400 Body mass index (BMI) [Ratio] 24.07 kg/m2 Bee Cutler Other [facility] Other 12-05-2022 09:15-0400 Body weight 70.76 kg Bee Cutler Other [facility] Other 12-05-2022 09:15-0400 Diastolic blood pressure 78 mm[Hg] Bee Cutler Other [facility] Other 12-05-2022 09:15-0400 Systolic blood pressure 159 mm[Hg] Bee Cutler Other [facility] Other Encounters Encounter Date Encounter Type Care Provider Facility Start: 07-07-2024 End: 07-07-2024 ambulatory Bee Cutler MD Work Phone: [facility] Work Phone: Start: 07-07-2024 End: 07-07-2024 Patient encounter procedure Bee Cutler MD Work Phone: [facility] Work Phone: Start: 05-03-2024 Non-patient / Non-visit Bee Cutler MD Work Phone: [facility] Work Phone: Start: 01-12-2024 End: 01-12-2024 ambulatory [facility] Work Phone: Start: 01-12-2024 End: 01-12-2024 Patient encounter procedure [facility] Work Phone: Start: 07-07-2023 End: 07-07-2023 ambulatory Bee Cutler Other [facility] Other Start: 07-07-2023 Office outpatient vi sit 15 minutes Bee Cutler [facility] Start: 01-02-2023 End: 01-02-2023 ambulatory Bee Cutler Other [facility] Other Start: 01-02-2023 Office outpatient vi sit 15 minutes Bee Cutler [facility] Start: 12-05-2022 End: 12-05-2022 ambulatory Bee Cutler Other [facility] Other Start: 12-05-2022 Office outpatient vi sit 15 minutes Bee Cutler [facility] Start: 09-19-2022 End: 09-19-2022 ambulatory Bee Cutler Other [facility] Other Start: 09-19-2022 Telephone encounter Bee Cutler [facility] Start: 01-19-[address] BEE CUTLER Facil ity:[facility] Start: 01-04-2022 End: 01-05-[address] BEE CUTLER Facility:[facility] Start: 06-21-2021 End: 06-22-[address] BEE CUTLER Facility:[facility] Start: 05-24-2021 End: 05-25-[address] BEE CUTLER Facility:H1 Plan of Treatment Date Care Activity Detail Author Start: 07-07-2024 EKG 12 channel panel Fi [facility] Comprehensive metabo lic 1999 panel - Serum or Plasma [facility] Comprehensive metabo lic 1999 panel - Serum or Plasma [facility] XR Chest 2 Views [facility] Immunizations Immunization Date Immunization Notes Care Provider Fa cility 03-23-2021 influenza virus vaccine, split virus (incl. purified surface antigen) Bee Cutler Other [facility] Other 03-23-2021 influenza virus vaccine, unspecified formulation [facility] 03-24-2020 influenza virus vaccine, split virus (incl. purified surface antigen) Bee Philly Other [facility] [employer] Other 03-24-2020 influenza virus vaccine, unspecified formulation [facility] Payers Date Payer Category Payer Self-pay 1960 Unknown [id number] 1945 Unknown [id number] [id number] [id number] 1945 Unknown [id number] [id number] [id number] 1945 Unknown [id number] [id number] [id number] 1945 Unknown [id number] 2.16.84 [id number] Medicare [id number] 2.1 [id number] Social History Date Type Detail Facility Sex Assigned At [facility] [employer] Other Start: 09-11-2023 End: 09-11-2023 Tobacco smoking status NHIS Ex-smoker (finding) [facility] Start: 1945 Sex Assigned At Male F [facility] Start: 07-07-2024 Sex Male (finding) [facility] Evaluation note 07-07-2023 Note Date & [...] medication with food to prevent stomach upset. [facility] Other Evaluation note 01-02-2023 Note Date & [...] and followup at their office in January. [facility] Other Evaluation note 12-05-2022 Note Date & Type Note Facility 12-05-2022 Evaluation note Encounter Date Diagnosis Assessment Notes Nov, Plantar fasciitis, left (ICD-10 - M72.2) Pt already taking aleve. Agrees to referral to Podiatry, requests Dr. Rushing. [facility] Other Evaluation note 09-19-2022 Note Date & Type Note Facility 09-19-2022 Evaluation note Encounter Date Diagnosis Assessment Notes Sep, Essential (primary) hypertension (ICD-10 - I10) [facility] Other Clinical Note 05-25-2021 Note Date & [...] authenticated by: CLARISSA WEEMS Date: 2021-05-25 07:[address] [facility] Evaluation note Note Date & Type Note Facility Evaluation note Diagnosis Onset Date Chronic cough acute HTN (hypertension) acute [facility] Work Phone: Evaluation note Note Date & Type Note Facility Evaluation note Diagnosis Onset Date Resolution HTN (hypertension) acute Januar y 2024 8:27am [facility] Work Phone: History general Narrative - Reported [...] History rotator cuff repair left should er [facility] Other Summary Purpose Family History Relationship Condition Age at Onset Recorded Date/T teodoro brother Unknown Malignant neoplasm Unknown father Unknown mother Unknown Advance Directives Advance Directive Response Recorded Date/ Time Advance Directives No July 07, 2023 11:06am Advance Directive Response Recorded Date/ Time Advance Directives No July 07, 2023 10:06am Reason for Referral Reason *FU 12/13 L planta r fasciitis Diagnosis 1 Plantar fasciitis, l eft (M72.2) Referral Organization [facility] Referring Provider First Name Bee Referring Provider Last Name Philly Referring Provider Specialty [facility] [place] Referred Organization [facility] Referred Provider Tato Rushing Referred Address [address], [place],[phone] Referred Provider Specialty Podiatry - S urgical Chiropody Referral Priority Routine General Notes Davida Valera 02:27:19 PM >received today, attachments made, notes locked, referral faxed Chief Complaint and Reason for Visit Chief Complaint Medicare Wellness Reason for Visit Chronic cough HTN (hypertension) Chief Complaint Admit Date Amb Documentation May 03, 2024 10:26am 6 month f/u July 07, 2024 8 :27am Reason for Visit Admit Date HTN (hypertension) July 07, 2024 8 :27am Additional Source Comments (unrecognized sect ion and content) No Status Records FoundNo Status Records Found INFORMATION SOURCE (unrecogn ized section and content) DATE CREATED AUTHOR [facility]/03/2021 [facility] CRE[facility] AUTHOR AUTHOR'S MELCHOR ATION 01/19/[address] [facility] REASON FOR VISIT (unrecogniz ed section and content) refillleft foot issues, swol jose painful6 month Follow up6 month Follow up Care Teams (unrecognized sec tion and content) Team Status: Active Member Role Status Dates Bee Cutler MD Primary Care Provider Active Team Status: Active Member Role Status Dates Bee Cutler MD Primary Care Provider Active Start: May 03, 2024 Ute Oh CMA Attending Provider Active Start: May 03, 2024 Team Status: Inactive Member Role Status Chikis Cutler MD Primary Care Provide r, Attending Provider Active Start: July 07, 2024 End: July 07, 2024 Team Status: Active Member Role Status Dates Bee Cutler MD Primary Care Provide r, Attending Provider Active Start: July 07, 2024 Team Status: Active Member Role Status Chikis Cutler MD Primary Care Provider Active Team Status: Inactive Member Role Status Chikis Cutler MD Primary Care Provide r, Attending Provider Active Start: January 12, 2024 End: January 12, 2024 Team Status: Active Member Role Status Chikis Cutler MD Primary Care Provider Active Start: May 03, 2024 Ute Oh CMA Attending Provider Active Start: May 03, 2024 Team Status: Inactive Member Role Status Chikis Cutler MD Primary Care Provide r, Attending Provider Active Start: July 07, 2024 End: July 07, 2024 Team Status: Active Member Role Status Chikis Cutler MD Primary Care Provide r, Attending Provider Active Start: July 07, 2024 Goals (unrecognized section and content) Goals [...] BE BASED ON THE PRIMARY CLINICAL RECORDS. [employer] provides no warranty or guarantee of the accuracy or completeness of information in this document.
== END 2024-07-08 07:26 | disposition home or self-care (01) ==
LOC: CARD 07:25
PROVIDERS: PCP Family Medicine; Visit Provider Family Medicine
DX: I10 Essential (primary) hypertension (principal)
CPT/HCPCS: 93005